=== PATIENT | female | born 1965 | race Caucasian/White ===

== ENCOUNTER 2019-03-22 13:48 | Outpatient (CLI) | payer OTHER ==
--- NOTE | 2019-03-22 15:36 | MMO ---
Bilateral MAMMO Bilat Diag DDI+DEYSI. CLINICAL HISTORY: Patient is 53 years old and is seen for diagnostic exam. The patient has no family history of breast cancer. The patient has no personal history of cancer. VIEWS: The views performed were: bilateral craniocaudal with tomosynthesis; bilateral mediolateral oblique with tomosynthesis; and bilateral mediolateral. FILMS COMPARED: The present examination has been compared to prior imaging studies performed at [facility] on 06/13/2005 and 03/22/2019. MAMMOGRAM FINDINGS: There are scattered fibroglandular densities. There are two irregular masses with spiculated margins seen in the upper-outer region of the right breast. The masses are approximately 1.2 cm apart. In the left breast, there are no suspicious masses, calcifications or areas of architectural distortion. IMPRESSION: MASSES IN THE RIGHT BREAST ARE SUSPICIOUS. AN ULTRASOUND-GUIDED BREAST BIOPSY IS RECOMMENDED. THE RESULTS OF THIS EXAM WERE SENT TO THE PATIENT. ACR BI-RADS Category 4 - Suspicious abnormality - biopsy should be considered MAMMOGRAPHY NOTE: 1. A negative mammogram report should not delay a biopsy if a dominant of clinically suspicious mass is present. 2. Approximately 10% to 15% of breast cancers are not detected by mammography. 3. Adenosis and dense breasts may obscure an underlying neoplasm.
--- NOTE | 2019-03-22 16:14 | ULT ---
RIGHT BREAST ULTRASOUND 03/22/19 COMPARISON: Mammogram 03/22/19. HISTORY: Swelling in the right axilla. Patient performs self-breast exam and not feel a mass in the right [address]. Patient has two abnormalities on mammography in the upper outer aspect of the right breast. TECHNIQUE: Multiplanar mckeon scale and color Doppler images were obtained in a right breast ultrasound. FINDINGS: At the 12 o'clock position of the right breast, approximately 6 cm from then nipple, there is a hypoe choic region with shadowing which is spiculated measuring 1.5 cm in size. This likely represents one of the mammographic abnormalities. At the 10 o'clock position of the right breast approximately 6 cm from the nipple, there is a second area of shadowing which is hypoechoic measuring 0.8 cm in greatest dimension. These masses are fairly near one another on ultrasound and mammography in the same quadra nt of the breast. Targeted ultrasound of the right axilla shows a hypoechoic region without internal flow measuring 3.3 cm in size. This does not have the appearance of an enlarged axillary lymph node and appears to repr esent a fluid collection. IMPRESSION: 1. Two masses in the right breast are suspicious for malignancy. These are fairly close to one a nother and a biopsy of the larger mass should be performed. BI-RADS 4: Suspicious Abnormality - Biops y Should Be Considered Usually requires biopsy. A ultrasound guided right breast mass biopsy is recom mended. This was discussed with the patient at the time of ultrasound. She was introduced to the [employer] e navigator to help her scheduling her future biopsy. 2. Nonspecific fluid collection in the right axilla. POS: DILIP
== END 2019-03-22 13:49 | disposition home or self-care (01) ==
LOC: BICMAMMO 13:48
PROVIDERS: ATTEND Family Medicine
DX: N63.0 Unspecified lump in unspecified breast (principal)
CPT/HCPCS: 77066; G0279

== ENCOUNTER 2019-04-04 10:37 | Day surgery (SDC) | payer SELFPAY ==
[2019-04-01 14:49] VITALS: BMI 28.3
[2019-04-04] MEDS ORDERED: Levofloxacin 500 mg/D5W 100 ml Premix Bag ONE (11:11)
[2019-04-04 11:44] LABS: #Basophils 0.1 thou/uL (0.0-0.2); #Eosinphils 0.1 thou/uL (0.0-0.7); #Lymphocytes 2.4 thou/uL (1.20-3.40); #Monocytes 0.4 thou/uL (0.11-0.59); #Neutrophils 3.9 thou/uL (1.40-6.50); %Basophils 1.2 % (0.0-1.0); %Eosinophils 2.1 % (0.0-10.0); %Lymphocytes 34.1 % (21.0-51.0); %Monocytes 5.8 % (0.0-10.0); %Neutrophils 56.8 % (42.0-75.0); Hemoglobin 14.1 g/dL (12.0-16.0); Mean Corpuscular HGB CONC 33.5 g/dL (32.0-36.0); Mean Corpuscular Hemoglobin 32.5 pg (27.0-31.0); Mean Platelet Volume 7.6 fL (7.4-10.4); Platelet Count 338 thou/uL (130-400); RBC Distribution Width 12.9 % (11.5-14.5); Red Blood Cell (RBC) Count 4.32 mill/uL (4.20-5.40); White Blood Cell (WBC) Count 6.9 thou/uL (4.8-10.8)
[2019-04-04 12:05] LABS: Anion Gap 12 mmol/L (10-20); BUN (Urea Nitrogen) 9 mg/dL (9.8-20.1); Calc. Creatinine Clearance 115 mL/min (70-130); Calcium 9.7 mg/dL (7.8-10.44); Carbon Dioxide 24 mmol/L (22-29); Chloride 107 mmol/L (98-107); Estimated GFR-MDRD Greater than 90; Glucose 90 mg/dL (70-105); Potassium 3.7 mmol/L (3.5-5.1); Sodium 139 mmol/L (136-145)
[2019-04-04] MEDS ORDERED: Bupivacaine/Epinephrine 0.25% 30 ML VIAL ONE (12:48)
[2019-04-04] MEDS ORDERED: Lidocaine 2% PF 5 ML VIAL ONE (12:48)
[2019-04-04] MEDS ORDERED: Midazolam HCl 2 mg/2 ml Vial ONE (13:01)
[2019-04-04] MEDS ORDERED: PROPOFOL 200 MG/20 ML VIAL ONE (13:19)
--- NOTE | 2019-04-04 14:43 | RAD ---
PORTABLE CHEST: Date: 04/04/19. PROVIDED CLINICAL HISTORY: MediPort placement. FINDINGS: Comparison with 09/10/06. Cardiac and mediastinal silhouette is within normal limits. Left subclavian implanted port is noted, the tip of which projects in the region of SVC. No focal consolidation, pleural fluid, or pneumothora x apparent. IMPRESSION: No evidence for an acute cardiopulmonary process. POS: OFF
--- NOTE | 2019-04-05 17:21 | PDOC.OP ---
Operative Note - Operative Note Operative Note: PROCEDURE: Left subclavian MediPort placement with fluoroscopy guidance DATE OF PROCEDURE: 04/04/2019 SURGEON: Mateusz Gomez M.D. PREOPERATIVE DIAGNOSIS: Node positive right breast cancer POSTOPERATIVE DIAGNOSIS: Node positive right breast cancer HISTORY: Patient has been diagnosed with node positive right cancer. Systemic staging is still pending. Chemotherapy has been recommended and a Mediport has been requested for this. OPERATIVE PROCEDURE IN DETAIL: After informed consent was obtained and appropriate preoperative antibiotics administered, the patient was taken to the operating room and placed in supine position and monitored anesthesia care was administered. The patient was then placed in Trendelenburg position and the left subclavian vein accessed easily by the standard approach with excellent flow of dark venous non-pulsatile blood. A wire threaded easily and was confirmed to be in the superior vena cava by fluoroscopy. Additional local anesthesia was infused to the skin and subcutaneous tissues lateral and inferior to the access site. The skin incision was extended from the wire laterally and a subcutaneous pocket developed inferiorly. A Mediport was obtained and confirmed to fit in the subcutaneous pocket. This was secured inferiorly to the pectoralis fascia with a Prolene suture, which was clamped, but not tied. The dilator and sheath were then placed over the wire and the dilator and wire removed leaving the sheath in place. The clamped MediPort tubing was tunneled through the sheath, which was then split and removed leaving the MediPort tubing in place. The tubing was adjusted until the tip was confirmed by fluoroscopy to be in the superior vena cava just above the atrium. The tubing was clamped at the skin level and cut and the tubing secured to the port, which was then placed in the subcutaneous pocket. The previously placed suture was secured and two additional sutures were placed to fix the port in place within the pocket. The port was aspirated with the Cardenas needle and had excellent flow of dark venous non-pulsatile blood and easily flushed without resistance. The subcutaneous tissues were closed with a running Monocryl suture, following which the skin was closed with a running subcuticular Monocryl suture. Dermabond dressings were placed. The course of the catheter was confirmed by fluoroscopy to be smooth with the tip appropriately located in the superior vena cava. The patient was taken back to the day stay unit in good condition. Estimated blood loss was minimal. There were no complications. There were no specimens.
== END 2019-04-04 15:35 | disposition home or self-care (01) ==
LOC: SDC 10:37
PROVIDERS: ATTEND Surgery
PROC: 05H633Z Insertion of Infusion Device into Left Subclavian Vein, Percutaneous Approach (ICD-10-PCS; principal; 2019-04-04)
DX: C50.911 Malignant neoplasm of unspecified site of right female breast (principal); I10 Essential (primary) hypertension; Z88.0 Allergy status to penicillin; Z88.5 Allergy status to narcotic agent
CPT/HCPCS: 36415; 71045; 80048; 85025; C1788; J1642; J1956; J2001; J2250; J2704

== ENCOUNTER 2019-04-08 09:02 | Outpatient (CLI) | payer OTHER ==
--- NOTE | 2019-04-08 09:55 | CT ---
CT Chest Abd Pelvis W Con History: [Breast cancer. Staging.] Comparison: Radiograph April 04, 2019 Findings: There is a calcified granuloma within the left lung base. No pericardial effusion. Portacat heter tip sits at the inferior SVC. Extensive right axillary adenopathy with the largest lymph node measuring 17 mm in short axis. There is edema in the rectal pectoral soft tissues appears also an abnormal retropectoral lymph node. Subclavicular adenopathy is also present with lymph node measuring up to 11 mm in short axis, coronal image 55. Small asymmetric right internal mammary lymph nodes are present. Multiple hypodensities in the right lobe of the thyroid. Skin thickening of the right breast the 2 separate masses with clip s adjacent to the masses although not within the. Subtle hypodensity is present within hepatic segment 4B measuring 4 mm, too small to characterize on this exam. Spleen is unremarkable as well as the pancreas. Of note, there is portions of the liver and upper abdomen which are nontender US examination due to and old be performed due to motion. No dilated loops of large or small bowel. No retroperitoneal adenopathy. Celiac trunk and superior me senteric artery are both patent. There is no suspicious osteolytic or osteoblastic lesions. No acute osseous abnormality. Impression: 1. 2 masses within the right breast with skin thickening and lymphatic congestive changes. Large righ t axillary, retropectoral, supraclavicular and small internal mammary adenopathy as described. 2. No evidence of metastatic disease within the lungs, abdomen, or pelvis. 3. Hypodensities in the right lobe of thyroid for which nonemergent ultrasound can be performed if cl inically warranted.
[2019-04-08] MEDS ORDERED: Iopamidol 370 76% 100 ML VIAL ONE (11:51)
--- NOTE | 2019-04-08 13:42 | NM ---
WHOLE BODY BONE SCAN: HISTORY: New diagnosis of right-sided breast cancer. Malignant neoplasm of the upper outer quadrant of the ri ght female breast. Right arm pain and swelling. RADIOPHARMACEUTICAL: Technetium 99m MDP 33 millicuries injected intravenously. FINDINGS: Focal increased uptake in the right lower lumbar spine, at the L5-S1 level, which is consistent with the degenerative change noted in the bone windows of the CT scan of the chest, abdomen, and pelvis fr om the same day. No other abnormal areas of tracer localization are seen to suggest osseous metastat ic disease. Tracer excretion through the kidneys is within normal limits. IMPRESSION: No scintigraphic evidence of osseous metastatic disease. POS: DILIP
== END 2019-04-08 09:03 | disposition home or self-care (01) ==
LOC: CT 09:02
PROVIDERS: ATTEND Internal Medicine Hematology & Oncology
DX: C50.411 Malignant neoplasm of upper-outer quadrant of right female breast (principal); N63.10 Unspecified lump in the right breast, unspecified quadrant; K76.89 Other specified diseases of liver; N64.59 Other signs and symptoms in breast
CPT/HCPCS: 71260; 74177; 78306; A9503; Q9967

== ENCOUNTER 2019-04-11 14:28 | Outpatient (CLI) | payer OTHER | END 2019-04-11 14:29 | disposition home or self-care (01) | LOC: ULT 14:28 | PROVIDERS: ATTEND Internal Medicine Hematology & Oncology | DX: Z51.11 Encounter for antineoplastic chemotherapy (principal); C50.411 Malignant neoplasm of upper-outer quadrant of right female breast; I08.1 Rheumatic disorders of both mitral and tricuspid valves | CPT/HCPCS: 93306 ==

== ENCOUNTER 2019-04-13 13:16 | Outpatient (CLI) | payer OTHER ==
--- NOTE | 2019-04-13 14:00 | MMO ---
Right Breast MAMMO Unilat Diag DDI RT+DEYSI. CLINICAL HISTORY: Patient is 53 years old and is seen for diagnostic exam. 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 VIEWS: The views performed were: . FILMS COMPARED: The present examination has been compared to prior imaging studies performed at [facility] on 06/13/2005 and 03/22/2019. MAMMOGRAM FINDINGS: There are scattered fibroglandular densities. There are two new biopsy clips seen in the right breast. Right skin thickening and partially visualized right axillary lymph node enlargement. Masses redemonstrated on the right. IMPRESSION: NEW BIOPSY CLIPS IN THE RIGHT BREAST ARE CONFIRMED UTILIZING POST PROCEDURE MAMMOGRAM. THE RESULTS OF THIS EXAM WERE SENT TO THE PATIENT. MAMMOGRAPHY NOTE: 1. A negative mammogram report should not delay a biopsy if a dominant of clinically suspicious mass is present. 2. Approximately 10% to 15% of breast cancers are not detected by mammography. 3. Adenosis and dense breasts may obscure an underlying neoplasm.
== END 2019-04-13 13:17 | disposition home or self-care (01) ==
LOC: BICMAMMO 13:16
PROVIDERS: ATTEND Surgery
DX: R92.8 Other abnormal and inconclusive findings on diagnostic imaging of breast (principal); Z98.890 Other specified postprocedural states; Z85.3 Personal history of malignant neoplasm of breast
CPT/HCPCS: G0279

== ENCOUNTER 2019-04-21 08:11 | Day surgery (SDC) | payer OTHER ==
[2019-04-21] MEDS ORDERED: Sodium Chloride 0.9% 30 ML ONE (10:11)
[2019-04-21] MEDS ORDERED: Palonosetron HCl 0.25 MG in Sodium Chloride 0.9% 50 ML IVPB SCH (10:45)
[2019-04-21] MEDS ORDERED: diphenhydrAMINE 50 MG in Sodium Chloride 0.9% 50 ML IVPB SCH (10:45)
[2019-04-21] MEDS ORDERED: Dexamethasone 10 MG in Sodium Chloride 0.9% 50 ML IVPB SCH (10:45)
[2019-04-21] MEDS ORDERED: DOCETAXEL IVPB SCH ×2 (11:15)
[2019-04-21] MEDS ORDERED: CARBOPLATIN IVPB SCH (11:15)
[2019-04-21] MEDS ORDERED: Pertuzumab 840 MG in Sodium Chloride 0.9% 250 ML 250 ML IVPB SCH (11:15)
[2019-04-21] MEDS ORDERED: SODIUM CHLORIDE 0.9% IVPB SCH ×4 (11:15)
[2019-04-21] MEDS ORDERED: TRASTUZUMAB IVPB SCH (11:15)
[2019-04-21 14:17] VITALS: BP 146/82; TEMP 98.6
== END 2019-04-21 17:45 | disposition home or self-care (01) ==
LOC: ONC/OP 08:11
PROVIDERS: ATTEND Internal Medicine Hematology & Oncology
DX: Z51.11 Encounter for antineoplastic chemotherapy (principal); C50.411 Malignant neoplasm of upper-outer quadrant of right female breast; Z88.0 Allergy status to penicillin; Z88.5 Allergy status to narcotic agent
CPT/HCPCS: 96375; 96413; 96417; J1100; J1200; J1642; J2469; J7050; J9045; J9171; J9306; J9355

== ENCOUNTER 2019-04-22 14:05 | Day surgery (SDC) | payer OTHER, SELFPAY ==
[2019-04-22 14:38] VITALS: BP 113/66; TEMP 97.9
== END 2019-04-22 14:38 | disposition home or self-care (01) ==
LOC: ONC/OP 14:05
PROVIDERS: ATTEND Internal Medicine Hematology & Oncology
DX: Z51.11 Encounter for antineoplastic chemotherapy (principal); C50.411 Malignant neoplasm of upper-outer quadrant of right female breast; Z88.0 Allergy status to penicillin; Z88.5 Allergy status to narcotic agent
CPT/HCPCS: 96372; J2505

== ENCOUNTER 2019-05-12 10:12 | Day surgery (SDC) | payer SELFPAY ==
[2019-05-12] MEDS ORDERED: DOCETAXEL IVPB SCH (10:30)
[2019-05-12] MEDS ORDERED: SODIUM CHLORIDE 0.9% IVPB SCH ×3 (10:30→10:45)
[2019-05-12] MEDS ORDERED: CARBOPLATIN IVPB SCH (10:30)
[2019-05-12] MEDS ORDERED: Palonosetron HCl 0.25 MG in Sodium Chloride 0.9% 50 ML IVPB SCH (10:30)
[2019-05-12] MEDS ORDERED: Pertuzumab 420 MG in Sodium Chloride 0.9% 250 ML 250 ML IVPB SCH (10:45)
[2019-05-12] MEDS ORDERED: TRASTUZUMAB IVPB SCH (10:45)
[2019-05-12 15:19] VITALS: BP 136/70; TEMP 98.6
== END 2019-05-12 15:21 | disposition home or self-care (01) ==
LOC: ONC/OP 10:12
PROVIDERS: ATTEND Internal Medicine Hematology & Oncology
DX: Z51.11 Encounter for antineoplastic chemotherapy (principal); C50.411 Malignant neoplasm of upper-outer quadrant of right female breast; Z88.5 Allergy status to narcotic agent; Z88.0 Allergy status to penicillin
CPT/HCPCS: 96375; 96413; 96417; J1100; J2469; J7050; J9045; J9171

== ENCOUNTER 2019-06-01 10:36 | Day surgery (SDC) | payer OTHER, SELFPAY ==
[~2019-06-01 10:36] MED LIST: CARBOPLATIN IVPB SCH; DOCETAXEL IVPB SCH; Palonosetron HCl 0.25 MG in Sodium Chloride 0.9% 50 ML IVPB SCH; Pertuzumab 420 MG in Sodium Chloride 0.9% 250 ML 250 ML IVPB SCH; SODIUM CHLORIDE 0.9% IVPB SCH; TRASTUZUMAB IVPB SCH
[2019-06-01] MEDS ORDERED: Sodium Chloride 0.9% 20 ML ONE (10:42)
== END 2019-06-01 15:34 | disposition home or self-care (01) ==
LOC: ONC/OP 10:36
PROVIDERS: ATTEND Internal Medicine Hematology & Oncology
DX: Z51.11 Encounter for antineoplastic chemotherapy (principal); C50.411 Malignant neoplasm of upper-outer quadrant of right female breast; Z88.0 Allergy status to penicillin; Z88.5 Allergy status to narcotic agent
CPT/HCPCS: 96375; 96413; 96417; J1100; J1642; J2469; J7050; J9045; J9171

== ENCOUNTER 2019-06-02 13:04 | Day surgery (SDC) | payer SELFPAY ==
[2019-06-02 13:36] VITALS: BP 143/80
== END 2019-06-02 13:36 | disposition home or self-care (01) ==
LOC: ONC/OP 13:04
PROVIDERS: ATTEND Internal Medicine Hematology & Oncology
DX: Z51.11 Encounter for antineoplastic chemotherapy (principal); C50.411 Malignant neoplasm of upper-outer quadrant of right female breast; Z88.0 Allergy status to penicillin; Z88.5 Allergy status to narcotic agent
CPT/HCPCS: 96372; J2505

== ENCOUNTER 2019-06-23 10:28 | Day surgery (SDC) | payer OTHER ==
[2019-06-23] MEDS ORDERED: Sodium Chloride 0.9% 20 ML ONE (10:48)
[2019-06-23 11:23] VITALS: BP 137/77; TEMP 98.2
[2019-06-23] MEDS ORDERED: SODIUM CHLORIDE 0.9% IVPB SCH (11:30)
[2019-06-23] MEDS ORDERED: FOSAPREPITANT DIMEGLUMINE IVPB SCH (11:30)
== END 2019-06-23 17:07 | disposition home or self-care (01) ==
LOC: ONC/OP 10:28
PROVIDERS: ATTEND Internal Medicine Hematology & Oncology
DX: Z51.11 Encounter for antineoplastic chemotherapy (principal); C50.411 Malignant neoplasm of upper-outer quadrant of right female breast; Z88.0 Allergy status to penicillin; Z88.5 Allergy status to narcotic agent
CPT/HCPCS: 96366; 96375; 96413; 96417; J1100; J1453; J1642; J2469; J3490; J7050; J9045; J9171

== ENCOUNTER 2019-07-14 10:35 | Day surgery (SDC) | payer OTHER ==
[2019-07-14] MEDS ORDERED: Sodium Chloride 0.9% 20 ML ONE (10:53)
[2019-07-14 11:24] VITALS: BP 133/75; TEMP 98.2
== END 2019-07-14 16:23 | disposition home or self-care (01) ==
LOC: ONC/OP 10:35
PROVIDERS: ATTEND Internal Medicine Hematology & Oncology
DX: Z51.11 Encounter for antineoplastic chemotherapy (principal); C50.411 Malignant neoplasm of upper-outer quadrant of right female breast; Z88.0 Allergy status to penicillin; Z88.5 Allergy status to narcotic agent
CPT/HCPCS: 96366; 96375; 96413; 96417; J1100; J1453; J1642; J2469; J3490; J7050; J9045; J9171

== ENCOUNTER 2019-07-15 09:05 | Day surgery (SDC) | payer OTHER ==
[2019-07-15 10:19] VITALS: BP 138/77; TEMP 98.4
== END 2019-07-15 10:19 | disposition home or self-care (01) ==
LOC: ONC/OP 09:05
PROVIDERS: ATTEND Internal Medicine Hematology & Oncology
DX: Z51.11 Encounter for antineoplastic chemotherapy (principal); C50.411 Malignant neoplasm of upper-outer quadrant of right female breast; Z88.0 Allergy status to penicillin; Z88.5 Allergy status to narcotic agent
CPT/HCPCS: 96372; J2505

== ENCOUNTER 2019-08-05 09:50 | Day surgery (SDC) | payer OTHER ==
[~2019-08-05 09:50] MED LIST changes: +Sodium Chloride 0.9% 20 ML ONE
[2019-08-05 14:33] VITALS: BP 146/83; TEMP 98.5
== END 2019-08-05 14:51 | disposition home or self-care (01) ==
LOC: ONC/OP 09:50
PROVIDERS: ATTEND Internal Medicine Hematology & Oncology
DX: Z51.11 Encounter for antineoplastic chemotherapy (principal); C50.411 Malignant neoplasm of upper-outer quadrant of right female breast; Z88.0 Allergy status to penicillin; Z88.5 Allergy status to narcotic agent
CPT/HCPCS: 96367; 96375; 96413; 96417; J1100; J1453; J1642; J2469; J3490; J7050; J9045; J9171

== ENCOUNTER 2019-08-10 12:50 | Outpatient (CLI) | payer OTHER | END 2019-08-10 12:51 | disposition home or self-care (01) | LOC: ULT 12:50 | PROVIDERS: ATTEND Internal Medicine Hematology & Oncology | DX: Z51.11 Encounter for antineoplastic chemotherapy (principal); C50.411 Malignant neoplasm of upper-outer quadrant of right female breast; Z79.899 Other long term (current) drug therapy; I08.3 Combined rheumatic disorders of mitral, aortic and tricuspid valves | CPT/HCPCS: 93306 ==

== ENCOUNTER 2019-09-14 07:04 | Day surgery (SDC) | payer OTHER ==
[2019-09-13 10:34] VITALS: BMI 28.5
[2019-09-14] MEDS ORDERED: Isosulfan Blue 50 MG/5 ML VIAL ONE (09:32)
[2019-09-14] MEDS ORDERED: Lidocaine 2% PF 5 ML VIAL ONE (09:32)
[2019-09-14] MEDS ORDERED: Bupivacaine/Epinephrine 0.25% 30 ML VIAL ONE (09:32)
[2019-09-14] MEDS ORDERED: Fentanyl 100 MCG/2 ML VIAL ONE ×2 (11:07→16:19)
[2019-09-14] MEDS ORDERED: Famotidine/PF 20 mg/2ml Vial ONE (11:12)
[2019-09-14] MEDS ORDERED: Ondansetron PF 4 MG/2 ML Vial ONE (11:13)
[2019-09-14] MEDS ORDERED: Scopolamine 1.5 mg/72 hour Patch ONE (11:13)
[2019-09-14] MEDS ORDERED: Levofloxacin 500 mg/D5W 100 ml Premix Bag ONE (11:14)
[2019-09-14 11:52] LABS: #Basophils 0.1 thou/uL (0.0-0.2); #Eosinphils 0.3 thou/uL (0.0-0.7); #Lymphocytes 2.3 thou/uL (1.20-3.40); #Monocytes 0.4 thou/uL (0.11-0.59); #Neutrophils 2.9 thou/uL (1.40-6.50); %Lymphocytes 39.2 % (21.0-51.0); %Monocytes 6.5 % (0.0-10.0); %Neutrophils 48.2 % (42.0-75.0); Hemoglobin 13.1 g/dL (12.0-16.0); Mean Corpuscular HGB CONC 34.4 g/dL (32.0-36.0); Mean Corpuscular Hemoglobin 33.3 pg (27.0-31.0); Mean Corpuscular Volume 96.8 fL (78.0-98.0); Mean Platelet Volume 7.3 fL (7.4-10.4); Platelet Count 280 thou/uL (130-400); RBC Distribution Width 10.8 % (11.5-14.5); Red Blood Cell (RBC) Count 3.93 mill/uL (4.20-5.40); White Blood Cell (WBC) Count 5.9 thou/uL (4.8-10.8)
[2019-09-14 12:23] LABS: Anion Gap 12 mmol/L (10-20); BUN (Urea Nitrogen) 10 mg/dL (9.8-20.1); Calc. Creatinine Clearance 118 mL/min (70-130); Calcium 9.4 mg/dL (7.8-10.44); Carbon Dioxide 23 mmol/L (22-29); Chloride 109 mmol/L (98-107); Estimated GFR-MDRD Greater than 90; Glucose 93 mg/dL (70-105); Potassium 3.4 mmol/L (3.5-5.1); Sodium 141 mmol/L (136-145)
[2019-09-14] MEDS ORDERED: Fentanyl 250 MCG/5 ML VIAL ONE (13:01)
--- NOTE | 2019-09-14 15:55 | MMO ---
Radiograph surgical specimen: DATE: 09/14/2019 Time: 1513 hours HISTORY: 54-year-old female with 2 breast cancers in the right breast. Status post needle localization and sin gical excision x2. FINDINGS: This is the second surgical specimen. It shows the [place] localization wire, the small spiculated neop lastic lesion, and the postbiopsy clip. IMPRESSION: 1. Successful right breast needle localization. 2. Successful right breast surgical excision.
--- NOTE | 2019-09-14 15:57 | MMO ---
Radiograph surgical specimen: DATE: 09/14/2019 Time: 1454 hours. HISTORY: 54-year-old female with 2 right breast cancer is diagnosed with ultrasound-guided right breast biopsy performed by surgeon. Surgical excision after needle localization. FINDINGS: This is the first of 2 surgical specimens. It contains the [place] localization wire, the spiculated ne oplastic small tumor mass, and the biopsy clip. IMPRESSION: 1. Successful right breast needle localization. 2. Successful surgical excision of right breast.
--- NOTE | 2019-09-14 16:02 | MMO ---
Mammographically guided needle localization right breast x2: DATE: 09/14/2019 HISTORY: 54-year-old female with 2 right breast cancer is both diagnosed by ultrasound-guided biopsy performed by surgeon. Patient is here for surgical excision, requiring image guidance. TECHNIQUE: Signed informed consent obtained. Through fenestrated paddle, right breast was compressed in the true lateral view. Lateral approach. Lateral skin prepared in usual sterile fashion. 25-gauge needle used to apply lidocaine superficially and deeply. 7 cm Mcalester needle advanced, targeting the upper les ion. Next, the lower lesion was targeted, and after 25-gauge needle application of lidocaine, a second 7 cm Mcalester needle was advanced from lateral approach. Next, the breast was compressed in the C C view, and both needle tips were retracted to the appropriate locations. The wires were deployed through the needle tips. A final repeat true lateral view was obtained. Patient tolerated the procedu re well. No complications. FINDINGS: Final images demonstrate needle tips very close to each neoplastic tumor lesion, with Mcalester wire tips pointing towards the clips. Subsequent specimen radiographs demonstrate successful excisional biopsy of both neoplastic lesions and both surgical clips. IMPRESSION: 1.) Successful mammographically guided right needle localization x2. 2.) Successful excisional surgical biopsy of the right breast cancers x2.
--- NOTE | 2019-09-14 16:15 | NM ---
Nuclear medicine lymphoscintigraphy right breast: DATE: 09/14/2019 HISTORY: 54-year-old female with 2 right-sided biopsy-proven breast cancers. Evaluate sentinel lymph node. TECHNIQUE: Signed informed consent obtained. Buffered lidocaine in syringe with 32-gauge needle. 0.4 mCi of technetium 99m-filtered sulfur colloid divided in 4 separate tuberculin syringes each with 32-gauge needle. Alcohol pad swab of 4 quadrant periareolar distribution. Injection of buffered lidocaine into each quadrant. Alcohol pad swab of same 4 quadrant periareolar distribution. Injection of radiopharmaceutical into each quadrant. Patient tolerated procedure well. No complications. FINDINGS: There is intense activity in a periareolar distribution in 4 quadrants, but there is no axillary sent inel lymph node visualized either immediately or at one hour. At one hour, there is faint uptake in 2 separate right internal mammary lymph nodes. IMPRESSION: 1. No evidence of activity in any right axillary lymph nodes. This is explained by the fact that the patient had neoadjuvant chemotherapy, after which the large, necrotic right axillary lymph node (demonstrated on prior ultrasound, CT, and PET scan) has disappeared on ultrasound (according to the surgeon Dr. Gomez). 2. Uptake in 2 right internal mammary lymph nodes.
--- NOTE | 2019-09-15 12:42 | PDOC.OP ---
Operative Note - Operative Note Operative Note: PROCEDURE: Right axillary dissection and right breast needle localized breast lumpectomy 2 SURGEON: Mateusz Gomez M.D. DATE: 09/14/2019 PREOPERATIVE DIAGNOSIS: Right breast cancer POSTOPERATIVE DIAGNOSIS: Right breast cancer HISTORY: Patient with 2 large right breast masses and a very abnormal right axillary lymph node and lymphedema of the right arm at the time of diagnosis, all biopsy-proven malignant. She underwent neoadjuvant chemotherapy with remarkable improvement in the axilla, with no palpable or ultrasonographically visible lymph node following chemotherapy. There was also improvement in the right breast masses which were not easily visible on ultrasound following therapy, so needle localization was requested preoperatively. Both masses are in the right upper outer quadrant, within a few centimeters of each other. Lymphoscintigraphy was also performed, but no axillary activity was seen. Internal mammary activity was seen on the lymphoscintigraphy, but no activity in the axilla. Was discussed with the patient that if a sentinel lymph node could be identified using Lymphazurin, but sentinel lymph node biopsy would be undertaken, but otherwise no axillary dissection would be necessary. PROCEDURE IN DETAIL: After informed consent was obtained the patient was taken to the operating room and placed in the supine position. General anesthesia was administered and the breast was prepped with alcohol and lymphazurin injected subdermally behind the nipple. The breast was massaged for 5 minutes, and then the patient was positioned, prepped and draped. Local anesthesia was infused to the lower edge of the hairbearing skin of the axilla. The skin was incised and dissection carried into the true axilla which was carefully examined with the neoprobe. No areas of increased activity were encountered however, which was consistent with the patient's finding of no axillary activity on lymphoscintigraphy. No blue lymphatics were noted either. The decision was made to proceed with axillary dissection as had been previously discussed with the patient preoperatively. Dissection was carried down toward the palpable axillary pulse and the axillary vein was identified and dissected free anteriorly. This was traced to the axillary wall and the axillary contents swept off of the axillary wall and the long thoracic nerve identified and dissected free of the axillary contents. This was confirmed to cause contraction of the anterior serratus muscles with gentle stimulation. The thoracodorsal vessel and nerve were then identified and traced to their insertion in the latissimus dorsi. Again, contraction of the latissimus dorsi was confirmed with gentle stimulation of the thoracodorsal nerve. All of the lymph node bearing tissue between these 3 structures was then swept inferiorly, dividing intercostal brachial nerves and small vessels as they were encountered. The axillary contents were then passed from the field. There were no abnormal palpable lymph nodes within the axillary contents. The lymph node bearing tissue posterior to the pectoralis was included in the specimen, and no additional abnormal lymph nodes were felt in this area. The wound was irrigated and hemostasis verified. Additional local anesthesia was infused for postoperative pain control and the MARISELA drain drawn out inferiorly and secured to the skin. The subcutaneous tissues were reapproximated with 3-0 Monocryl suture and the skin closed with 4-0 Monocryl suture. Attention was then turned to the lumpectomy. The patient had 2 needle localization wires placed in the right upper outer quadrant of the breast. These were in proximity of each other, but it was felt that a very long periareolar incision be necessary to excise them both in the same incision, which could complicate healing from a mastectomy if this was necessary at a later date, and it was also felt that this could put the patient at risk for displacement of one of the needles during dissection of the other mass. Therefore the decision was made to proceed with 2 separate incisions and 2 separate lumpectomies. The breast was examined with a sterile ultrasound machine and the suspected location of the masses was marked on the skin to further guide dissection. One of the masses could be seen although was much smaller than before chemotherapy, but the other could not be definitively identified, although there was a vague hypoechoic area in the location of the inferior needle. The superior needle was 7 cm long and the needle was located posterior to the clip but anterior to the mass on preoperative imaging. Local anesthesia was infused the skin and subcutaneous tissues and a transverse incision made. Dissection was carried out around the needle taking generous margins both anteriorly and posteriorly. The specimen was removed and marked for orientation with a long lateral, short superior, and loop superficial suture. It was sent for specimen mammogram which showed presence of the mass and clip within the specimen. The wound was irrigated and hemostasis obtained using Bovie electrocautery. Attention was then turned to the inferior needle localized mass. The inferior needle was 5 cm long and located posterior to both the mass and the clip. Local anesthesia was infused and a transverse skin incision made. Dissection was carried out around the needle taking generous margins anteriorly. As dissection was carried out superiorly, the previous lumpectomy cavity was entered. The superior margin of the inferior mass is thus contiguous with the inferior margin of the superior mass. The mass was excised and oriented for pathology with a long lateral, short superior, and loop superficial suture. This was sent for specimen mammogram which confirmed presence of the mass and clip within the specimen. Additional local anesthesia was infused circumferentially for postoperative pain control. The subcutaneous tissues were reapproximated with a running 3-0 Monocryl suture and additional local anesthesia infused into the biopsy cavity. The skin was then closed with a running 4-0 subcuticular Monocryl suture. Dermabond dressings were placed to both incisions, as well as the axillary incision, and once this was dry, fluffs compression dressings were placed and secured to the skin with tape. MARISELA site was dressed with gauze and Tegaderm. The patient was extubated and taken to the recovery room in good condition. Estimated blood loss was minimal. There were no complications. Specimens are right axillary contents and right breast needle localized lumpectomies 2
== END 2019-09-14 18:35 | disposition home or self-care (01) ==
LOC: SDC 07:04
PROVIDERS: ATTEND Surgery
PROC: 0HBT0ZZ Excision of Right Breast, Open Approach (ICD-10-PCS; principal; 2019-09-14)
PROC: 0HTT0ZZ Resection of Right Breast, Open Approach (ICD-10-PCS; principal; 2019-09-14)
PROC: 07B50ZZ Excision of Right Axillary Lymphatic, Open Approach (ICD-10-PCS; principal; 2019-09-14)
DX: C50.411 Malignant neoplasm of upper-outer quadrant of right female breast (principal); I10 Essential (primary) hypertension; Z17.0 Estrogen receptor positive status [ER+]; Z88.0 Allergy status to penicillin; Z88.5 Allergy status to narcotic agent
CPT/HCPCS: 19281; 19282; 76098; 78195; 80048; 85025; 88307; A9541; J0131; J1642; J1956; J2001; J2405; J3010; Q9968; S0028

== ENCOUNTER 2019-10-05 08:40 | Day surgery (SDC) | payer OTHER, SELFPAY ==
[2019-10-04 08:34] VITALS: BMI 28.7
[2019-10-05] MEDS ORDERED: Levofloxacin 500 mg/D5W 100 ml Premix Bag ONE (09:31)
[2019-10-05] MEDS ORDERED: Scopolamine 1.5 mg/72 hour Patch ONE (09:49)
[2019-10-05] MEDS ORDERED: Dexamethasone 20 MG/5 ML VIAL ONE (09:52)
[2019-10-05] MEDS ORDERED: Ondansetron PF 4 MG/2 ML Vial ONE (09:52)
[2019-10-05] MEDS ORDERED: PHENYLEPHRINE-NS 100 MCG/ML 10 ML SYRINGE ONE (09:52)
[2019-10-05] MEDS ORDERED: ePHEDrine/0.9% NaCl/PF SYRINGE 50 mg/10 ml ONE (09:52)
[2019-10-05] MEDS ORDERED: PROPOFOL 200 MG/20 ML VIAL ONE (09:52)
[2019-10-05] MEDS ORDERED: Lidocaine 1% PF 5 ML VIAL ONE (09:52)
[2019-10-05] MEDS ORDERED: Ketorolac Tromethamine 30 MG/ML VIAL ONE (09:52)
[2019-10-05] MEDS ORDERED: Fentanyl 100 MCG/2 ML VIAL ONE (10:21)
[2019-10-05] MEDS ORDERED: Bupivacaine HCl 0.25%/Epi 0.0005/PF 10 ML VIAL FS ONE (10:29)
[2019-10-05] MEDS ORDERED: Lidocaine 2% PF 5 ML VIAL ONE (10:55)
[2019-10-05] MEDS ORDERED: Sodium Chloride 0.9% 10 ML ONE (13:20)
--- NOTE | 2019-10-06 19:49 | PDOC.OP ---
Operative Note - Operative Note Operative Note: PROCEDURE: Reexcision of superior margin of superior lumpectomy specimen of right breast SURGEON: Mateusz Gomez M.D. DATE: PREOPERATIVE DIAGNOSIS: Right breast cancer status post lumpectomy 2 with focally positive superior margin of superior mass POSTOPERATIVE DIAGNOSIS: Right breast cancer status post lumpectomy 2 with focally positive superior margin of superior mass HISTORY: Patient with right breast cancer status post excision of 2 separate tumor masses and axillary dissection. The superior specimen was focally positive at the superior margin so reexcision was recommended. PROCEDURE IN DETAIL: After informed consent was obtained the patient was taken to the operating on she was placed in supine position and general anesthesia was administered. She was prepped and draped in standard sterile fashion and local anesthesia infused the skin and subcutaneous tissues at the superior biopsy incision. The skin was reopened and the biopsy cavity entered. The entire superior margin of the biopsy cavity was excised and marked for orientation with a long lateral, short superior, and loop superficial suture. The wound was then irrigated and hemostasis obtained using Bovie electrocautery. Additional local anesthesia was infused for postoperative pain control. The subcutaneous tissues were reapproximated with 3-0 Monocryl suture and additional local anesthesia infused into the biopsy cavity. The skin was closed with a running force Monocryl suture and Dermabond dressings were placed. Once this was dry, a compression dressing was placed. The patient was extubated and taken to recovery in good condition. Estimated blood loss minimal. There were no complications. Specimen is extended superior margin of superior breast mass of the right breast.
== END 2019-10-05 13:42 | disposition home or self-care (01) ==
LOC: SDC 08:40
PROVIDERS: ATTEND Surgery
PROC: 0HBT0ZZ Excision of Right Breast, Open Approach (ICD-10-PCS; principal; 2019-10-05)
DX: C50.411 Malignant neoplasm of upper-outer quadrant of right female breast (principal); I10 Essential (primary) hypertension; Z88.0 Allergy status to penicillin; Z88.5 Allergy status to narcotic agent
CPT/HCPCS: 88307; J0131; J1100; J1642; J1885; J1956; J2001; J2405; J2704; J3010

== ENCOUNTER 2019-11-14 11:38 | Day surgery (SDC) | payer OTHER ==
[~2019-11-14 11:38] MED LIST changes: +ADO TRASTUZUMAB EMTANSINE IVPB SCH; -CARBOPLATIN IVPB SCH; -DOCETAXEL IVPB SCH; -Palonosetron HCl 0.25 MG in Sodium Chloride 0.9% 50 ML IVPB SCH; -Pertuzumab 420 MG in Sodium Chloride 0.9% 250 ML 250 ML IVPB SCH; -Sodium Chloride 0.9% 20 ML ONE; -TRASTUZUMAB IVPB SCH
[2019-11-14] MEDS ORDERED: Sodium Chloride 0.9% 20 ML ONE (11:47)
[2019-11-14 13:16] VITALS: BP 135/72; TEMP 97.9
== END 2019-11-14 14:30 | disposition home or self-care (01) ==
LOC: ONC/OP 11:38
PROVIDERS: ATTEND Internal Medicine Hematology & Oncology
DX: Z51.12 Encounter for antineoplastic immunotherapy (principal); C50.411 Malignant neoplasm of upper-outer quadrant of right female breast; Z17.0 Estrogen receptor positive status [ER+]; Z88.0 Allergy status to penicillin; Z88.5 Allergy status to narcotic agent
CPT/HCPCS: 96413; J1642

== ENCOUNTER 2019-12-05 12:23 | Day surgery (SDC) | payer OTHER ==
[2019-12-05] MEDS ORDERED: Sodium Chloride 0.9% 20 ML ONE (12:31)
[2019-12-05 13:15] VITALS: BP 122/67; TEMP 98.5
== END 2019-12-05 15:22 | disposition home or self-care (01) ==
LOC: ONC/OP 12:23
PROVIDERS: ATTEND Internal Medicine Hematology & Oncology
DX: Z51.12 Encounter for antineoplastic immunotherapy (principal); C50.411 Malignant neoplasm of upper-outer quadrant of right female breast; Z88.0 Allergy status to penicillin; Z88.5 Allergy status to narcotic agent
CPT/HCPCS: 96367; 96413; J1453; J1642; J3490

== ENCOUNTER 2019-12-26 11:10 | Day surgery (SDC) | payer OTHER ==
[2019-12-26] MEDS ORDERED: Sodium Chloride 0.9% 20 ML ONE (11:51)
[2019-12-26 13:47] VITALS: BP 112/67; TEMP 98.5
== END 2019-12-26 13:47 | disposition home or self-care (01) ==
LOC: ONC/OP 11:10
PROVIDERS: ATTEND Internal Medicine Hematology & Oncology
DX: Z51.12 Encounter for antineoplastic immunotherapy (principal); C50.411 Malignant neoplasm of upper-outer quadrant of right female breast; Z88.0 Allergy status to penicillin; Z88.5 Allergy status to narcotic agent
CPT/HCPCS: 96375; 96413; J1453; J1642; J3490

== ENCOUNTER 2020-01-16 10:22 | Day surgery (SDC) | payer OTHER ==
[2020-01-16 10:52] VITALS: BP 112/69; TEMP 98.1
== END 2020-01-16 12:55 | disposition home or self-care (01) ==
LOC: ONC/OP 10:22
PROVIDERS: ATTEND Internal Medicine Hematology & Oncology
DX: Z51.12 Encounter for antineoplastic immunotherapy (principal); C50.411 Malignant neoplasm of upper-outer quadrant of right female breast; Z88.0 Allergy status to penicillin; Z88.5 Allergy status to narcotic agent
CPT/HCPCS: 96367; 96413; J1453; J1642; J3490

== ENCOUNTER 2020-02-06 10:21 | Day surgery (SDC) | payer SELFPAY ==
[2020-02-06] MEDS ORDERED: Sodium Chloride 0.9% 20 ML ONE (12:30)
== END 2020-02-06 14:22 | disposition home or self-care (01) ==
LOC: ONC/OP 10:21
PROVIDERS: ATTEND Internal Medicine Hematology & Oncology
DX: Z51.12 Encounter for antineoplastic immunotherapy (principal); C50.411 Malignant neoplasm of upper-outer quadrant of right female breast; Z88.0 Allergy status to penicillin; Z88.5 Allergy status to narcotic agent
CPT/HCPCS: 96375; 96413; J1453; J1642; J3490

== ENCOUNTER 2020-02-13 12:03 | Outpatient (CLI) | payer OTHER | END 2020-02-13 12:04 | disposition home or self-care (01) | LOC: ULT 12:03 | PROVIDERS: ATTEND Internal Medicine Hematology & Oncology | DX: Z51.11 Encounter for antineoplastic chemotherapy (principal); C50.411 Malignant neoplasm of upper-outer quadrant of right female breast; I07.1 Rheumatic tricuspid insufficiency; Z79.899 Other long term (current) drug therapy | CPT/HCPCS: 93306 ==

== ENCOUNTER 2020-02-27 11:01 | Day surgery (SDC) | payer OTHER ==
[2020-02-27] MEDS ORDERED: Sodium Chloride 0.9% 20 ML ONE (11:08)
[2020-02-27 11:58] VITALS: BP 139/87; TEMP 98.4
== END 2020-02-27 13:25 | disposition home or self-care (01) ==
LOC: ONC/OP 11:01
PROVIDERS: ATTEND Internal Medicine Hematology & Oncology
DX: Z51.12 Encounter for antineoplastic immunotherapy (principal); C50.411 Malignant neoplasm of upper-outer quadrant of right female breast; Z88.0 Allergy status to penicillin; Z88.5 Allergy status to narcotic agent
CPT/HCPCS: 96367; 96413; J1453; J1642; J3490; J7050; J9354

== ENCOUNTER 2020-03-19 11:30 | Day surgery (SDC) | payer SELFPAY ==
[2020-03-19] MEDS ORDERED: Sodium Chloride 0.9% 20 ML ONE (11:33)
[2020-03-19 11:57] VITALS: BP 149/93; TEMP 98.6
== END 2020-03-19 13:50 | disposition home or self-care (01) ==
LOC: ONC/OP 11:30
PROVIDERS: ATTEND Internal Medicine Hematology & Oncology
DX: Z51.11 Encounter for antineoplastic chemotherapy (principal); C50.411 Malignant neoplasm of upper-outer quadrant of right female breast; Z88.0 Allergy status to penicillin; Z88.5 Allergy status to narcotic agent
CPT/HCPCS: 96375; 96413; J1453; J1642; J3490

== ENCOUNTER → 2020-04-09 | Day surgery (SDC) | payer OTHER, SELFPAY ==
[~2020-04-09] MED LIST changes: +Sodium Chloride 0.9% 20 ML ONE
[2020-04-09 14:00] VITALS: BP 135/82; TEMP 98.5
== END ==
LOC: ONC/OP 11:11
PROVIDERS: ATTEND Internal Medicine Hematology & Oncology
DX: Z51.11 Encounter for antineoplastic chemotherapy (principal); C50.411 Malignant neoplasm of upper-outer quadrant of right female breast; Z17.0 Estrogen receptor positive status [ER+]; Z88.0 Allergy status to penicillin; Z88.5 Allergy status to narcotic agent
CPT/HCPCS: 96367; 96413; J1453; J1642; J3490

== ENCOUNTER 2020-04-16 06:34 | Inpatient (IN) | payer OTHER, SELFPAY ==
[2020-04-16] MEDS ORDERED: Metoclopramide HCl 10 MG/2 ML VIAL ONE (07:28)
[2020-04-16] MEDS ORDERED: Ketorolac Tromethamine 30 MG/ML VIAL ONE (07:28)
[2020-04-16] MEDS ORDERED: Fentanyl 100 MCG/2 ML VIAL ONE (07:28)
[2020-04-16] MEDS ORDERED: Ondansetron PF 4 MG/2 ML Vial ONE (07:28)
[2020-04-16] MEDS ORDERED: Dexamethasone 10 MG/ML VIAL ONE (07:28)
[2020-04-16 07:39] LABS: #Eosinphils 0.1 thou/uL (0.0-0.7); #Lymphocytes 1.1 thou/uL (1.20-3.40); #Monocytes 0.5 thou/uL (0.11-0.59); #Neutrophils 6.5 thou/uL (1.40-6.50); %Basophils 0.2 % (0.0-1.0); %Eosinophils 1.3 % (0.0-10.0); %Lymphocytes 13.8 % (21.0-51.0); %Monocytes 6.1 % (0.0-10.0); %Neutrophils 78.5 % (42.0-75.0); Hemoglobin 15.1 g/dL (12.0-16.0); Mean Corpuscular HGB CONC 32.2 g/dL (32.0-36.0); Mean Corpuscular Hemoglobin 29.9 pg (27.0-31.0); Mean Platelet Volume 8.1 fL (7.4-10.4); Platelet Count 178 thou/uL (130-400); RBC Distribution Width 12.2 % (11.5-14.5); Red Blood Cell (RBC) Count 5.04 mill/uL (4.20-5.40); White Blood Cell (WBC) Count 8.2 thou/uL (4.8-10.8)
[2020-04-16 08:04] LABS: ALT (SGPT) 56 U/L (8-55); AST (SGOT) 63 U/L (5-34); Albumin 4.4 g/dL (3.5-5.0); Alkaline Phosphatase 77 U/L (40-110); Anion Gap 15 mmol/L (10-20); BUN (Urea Nitrogen) 11 mg/dL (9.8-20.1); Bilirubin, Total 0.3 mg/dL (0.2-1.2); CK (CPK) 37 U/L (29-168); Calc. Creatinine Clearance 0 mL/min (70-130); Calcium 9.9 mg/dL (7.8-10.44); Carbon Dioxide 25 mmol/L (22-29); Chloride 104 mmol/L (98-107); Estimated GFR-MDRD 79; Globulin 3.3 g/dL (2.4-3.5); Glucose 106 mg/dL (70-105); Potassium 3.3 mmol/L (3.5-5.1); Protein, Total 7.7 g/dL (6.0-8.3); Sodium 141 mmol/L (136-145)
[2020-04-16] MEDS ORDERED: Proparacaine 0.5% Opth 15 ML BOT ONE (08:09)
--- NOTE | 2020-04-16 08:28 | CT ---
CT BRAIN NONCONTRAST: DATE: 04/16/2020 8:10 AM HISTORY: 54-year-old female with breast cancer presents with headache, nausea, vomiting, and blurred vision. Dr. Duong discussed the findings by telephone with Dr. Millan of the ER at 8:18 AM 04/16/2020 COMPARISON: none FINDINGS: There is a patchy hypodensity in the posterior aspect of the right cerebellar hemisphere probably rep resenting vasogenic edema. This measures several centimeters. Anterior to that in the upper right cerebellar hemisphere, there is a tiny subcentimeter such focus. There is effacement of the inferior portion of the fourth ventricle, questionable for a small mass in the cerebellar vermis. There is no obstructive hydrocephalus yet. There is crowding of the foramen magnum which may represent Andrez 1 malformation. There is a tiny subcentimeter focal moderate hyperdensity in the right parietal deep white matter just superior to the atrium of the right lateral ventricle. No supratentorial mass effec t. No midline shift. No destructive osseous lesion. No gross opacification of visualized portions of paranasal sinuses or tympanomastoid cavities. No acute intra-axial or extra-axial hemorrhage. A 1 x 1.3 cm low-attenuation extra-axial lesion broadly abutting the posterior aspect of the upper portion of the interhemispheric fissure, mildly displacing the left paramedian upper posterior fronta l gyri. IMPRESSION: 1. Findings suspicious for brain metastasis: Suspected 2 in the right cerebellar hemisphere, suggeste d by what is probably vasogenic edema. 2. Questionable small moderately hyperdense mass at the cerebellar vermis which effaces the inferior portion of the fourth ventricle. 3. Questionable small moderately hyperdense mass in the right parietal deep white matter. This is que stionable for lesion with petechial hemorrhage. 4. 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 5. Left upper parafalcine supratentorial small extra-axial lesion of uncertain etiology. Perhaps arac hnoid cyst. 6. Recommend MRI of the brain with and without contrast.
[2020-04-16 09:09] LABS: PTT 29.6 SEC (22.9-36.1); Prothrombin Time 13.1 sec (12.0-14.7)
[2020-04-16] MEDS ORDERED: Iopamidol-370 76% 500 ML 1 ML ONE (10:03)
[2020-04-16] MEDS ORDERED: Magnevist 469MG/ML 20 ML VIAL ONE (10:06)
[2020-04-16] MEDS ORDERED: Ondansetron PF 4 MG/2 ML Vial IVP PRN (10:50)
[2020-04-16] MEDS ORDERED: Ondansetron ODT 4 MG TAB PO PRN (10:50)
[2020-04-16] MEDS ORDERED: Fentanyl 100 MCG/2 ML VIAL SLOW IVP PRN (10:51)
[2020-04-16] MEDS ORDERED: D5 1/2 NS w/20 mEq KCL 1,000 ML IV SCH ×2 (11:00→13:12)
[2020-04-16 11:48] VITALS: BMI 26.1
[2020-04-16] MEDS ORDERED: Acetaminophen 500 MG TAB PO PRN (12:58)
[2020-04-16] MEDS: Dexamethasone 4 mg/ml Vial SLOW IVP SCH ×2 (13:22→17:54)
--- NOTE | 2020-04-16 13:59 | HP ---
HISTORY OF PRESENT ILLNESS: Ms. Trinh is a 54-year-old female with a medical history of breast cancer, status post lumpectomy x2 in September of 2019 ( currently on chemotherapy), dry eyes and blurry vision since starting chemotherapy, who presents with right-sided headache and blurry vision. The patient endorses having blurry vision since starting chemotherapy. However, the vision blurriness is bilateral and resolved a few days after using otic medications. This past Thursday, started having an additional episode of blurry vision; however, this time blurriness was greater on the right than on the left and was associated with a right-sided headache that was pressure-like and constant. The patient took Tylenol for the headache, which alleviated the pain; however, blurriness did not resolve , so she came to the ED. On encounter, lying comfortably in bed and endorses improved blurry vision on the right and no headache. Denies head trauma, temporal pain or tenderness, facial asymmetry, eye swelling or erythema, nasal congestion, cough, or focal weakness. ED COURSE: In the ED, the patient underwent a CT scan, which showed findings suspicious for brain metastasis in the right cerebellar hemisphere and probable vasogenic edema. She was treated with steroids, Neurosurgery and Oncology were contacted, and the patient was admitted for further management. REVIEW OF SYSTEMS: Complete review of system was carried out and was negative with the exception of that mentioned in the HPI. MEDICAL HISTORY: 1. Breast cancer diagnosed in September of 2019; status post lumpectomy x2, currently on chemotherapy. 2. Hypertension. SURGICAL HISTORY: Hysterectomy, tonsillectomy, . FAMILY HISTORY: Father due to heart attack in his early 40s. Mother , had COPD. Brother also had a heart attack at the age of 4343 years old. SOCIAL HISTORY: No smoking. No alcohol abuse. No recreational drug abuse. Lives with family. MEDICATIONS: Reconciled in EMR. ALLERGIES: PENICILLIN AND CODEINE (hives) PHYSICAL EXAMINATION: VITAL SIGNS: Blood pressure 139/82, pulse 91, respirations 18, oxygen saturation 100% on room air, and temperature 98.4. GENERAL APPEARANCE: In no apparent distress. CARDIAC: Regular rate and rhythm. No gallops or murmurs. Left chemo port. LUNGS: Clear to auscultation bilaterally. No wheezes, rales, or rhonchi. ABDOMEN: Nondistended and nontender. Normal bowel sounds. EXTREMITIES: Strength 5/5 throughout. No edema. NEUROLOGIC: Peripheral visual mendoza are intact. Extraocular muscles are intact. Cranial nerves 2 through 12 grossly intact. No pronator drift. No nystagmus. PSYCHIATRIC: Proper mood and affect. Alert and oriented x3. IMAGING AND LABS: Reviewed. Brain CT, findings suggestive of metastasis with surrounding vasogenic edema, measuring several centimeters in the right cerebellar hemisphere. ASSESSMENT AND PLAN: Ms. Trinh is a 54-year-old female with a medical history of metastatic brain cancer, status post lumpectomy x2, now presenting with visual disturbances and new onset headache due to brain metastasis. Breast cancer, status post lumpectomy x2, brain metastasis: The patient is hemodynamically stable and currently asymptomatic with the exception of mild visual blurriness in the right eye. Administered steroids in the ED. Neurosurgery and Oncology were contacted by the ED physician, pending evaluation. Plan; 1. Tylenol p.r.n. headache. 2. Dexamethasone 4 mg IVP q.6 hours. 3. Restarted anastrozole. 4. Brain MRI with and without contrast. Hypertension: The patient is taking no hypertension medications at home based on medication reconciliation. Currently, blood pressure well controlled. Disposition prophylaxis: The patient is full code. Surrogate decision maker is her . Deep venous thrombosis prophylaxis, SCDs. GI prophylaxis, the patient is on Pepcid. Estimated length of stay, 2 midnights. Job ID: [id number] [facility]
--- NOTE | 2020-04-16 14:45 | MRI ---
MRI BRAIN WITH AND WITHOUT CONTRAST: DATE: 04/16/2020 HISTORY: 54-year-old female with history of metastatic breast cancer presents with headache, visual disturbanc es and abnormal CT. COMPARISON: None TECHNIQUE: Multiplanar, multisequence MRI of the brain performed pre- and post-IV injection of gadolinium based contrast agent. FINDINGS: Multiple enhancing tumors in the posterior fossa. Moderately large 4 x 2.5 x 2 cm intra-axial tumor mass with thick irregular nodular rim enhancement, and nonenhancing necrotic center. Small 0.8 cm satellite nodules slightly inferior to its lateral edge. 2 x 0.7 x 0.8 such lesion at superior aspect of right cerebellar hemisphere. Tiny 0.5 cm enhancing nodule at anterior inferior aspect of left cerebellar hemisphere. Minimal or enhancing supratentorial enhancing intra-axial tumor masses. In particular, one tumor mass broadly abutting the left side of the posterior interhemispheric falx m easuring approximately 2.8 x 2.7 x 2 cm with left sided nodular thick rim enhancement has a necrotic right portion, which gave the appearance of an arachnoid cyst on the noncontrast CT. This is a metastatic mass. All of the other supratentorial tumor masses are smaller than this. These include right orbital gyrus, many others along the interhemispheric fissure bilaterally, right occipi los lobe, right parietal lobe, and right posterior temporal lobe. Tiny faint one in the left parietal deep white matter near posterior aspect of left lateral ventricle. There is indeed 6 mm inferior protrusion of cerebellar tonsils inferior to foramen magnum. The efface ment of the inferior aspect of the fourth ventricle appears to be due to the chronic mass effect from the category 1 malformation. There is a slightly smaller possibility that this could be due to t he moderately large right cerebellar tumor causing mass effect. The upper portion of the fourth ventricle and the lateral and third ventricles are normal in size and configuration. No evidence of h emorrhage of any of the metastatic masses. No restricted diffusion. No subfalcine or vertical transtentorial herniation. No extra-axial fluid collection. IMPRESSION: 1) numerous intra-axial brain metastatic lesions in the cerebrum and cerebellum. 2) effacement of the inferior aspect of fourth ventricle could be due to Chiari I malformation, or al ternatively due to the mass effect from the largest metastatic mass which is in the right cerebellar hemisphere. 3) no supratentorial mass effect despite the somewhat large number of cerebral metastases.
--- NOTE | 2020-04-16 17:36 | CT ---
Exam: Chest CT with contrast Abdomen CT with contrast Pelvic CT with contrast HISTORY: Breast cancer and lymphedema. Evaluate for metastases. Correlation: None COMPARISON: 04/08/2019 FINDINGS: Chest CT: Mediastinum: No mass, lymphadenopathy or hematoma. Aorta: Normal caliber. No periaortic fat stranding. Heart: Normal heart size. No significant pericardial fluid Trachea and central bronchi: Patent Pleural spaces: No pleural effusion. Right lung: Interval development of patchy groundglass opacities predominantly in the right upper lob e. There is a ill-defined groundglass opacity with slightly irregular margins measuring 2.2 x 1.8 cm, which is developed since the previous exam. On the coronal images, this opacity is a somewhat mor e masslike appearance and appears to have a solid component. The solid component measures 1.2 x 1.2 cm. Left lung:Stable calcified granuloma and scarring in the left lower lobe. No suspicious masses, conso lidation Pneumothorax: None Chest wall: Postsurgical changes in the right axilla and right breast. There is right breast skin thi ckening with irregular hypodensity measuring 3.2 x 1.6 cm. Hypodensity has a attenuation coefficient of 14-15 Hounsfield units suggesting a possible post operative seroma. Better interrogati on on with MRI if clinically warranted. Abdomen CT: Gallbladder: Unremarkable Portal vein: Patent Liver: No enhancing masses. Stable subcentimeter hypodensities in the hepatic parenchyma.. Spleen: Appropriate enhancement Pancreas: Appropriate enhancement Adrenal glands: Appropriate enhancement Lymphadenopathy: No gastrohepatic, retrocrural or periportal lymphadenopathy Kidneys: Symmetric enhancement. No obstructive uropathy Mesentery: No mass, lymphadenopathy, free air or free fluid Alimentary canal: Limited evaluation by the lack of oral contrast. No small bowel obstruction. Ileoce javan junction has a normal appearance. Normal caliber appendix. Decompressed colon with the bowel wall thickening, likely due to inadequate distention. Scattered diverticula. No diverticulitis. Pelvis CT: Uterus is surgically absent. No pelvic mass, lymphadenopathy, free air or free fluid. Normal mucosa w ith regards to the urinary bladder Osseous structures:No lytic or blastic lesions. IMPRESSION: 1. Presumed postoperative changes in the right breast. Breast MRI if clinically warranted. 2. Interval development of a groundglass opacity with a more central masslike solid opacification. Fi ndings may represent possible focus of metastatic disease versus infiltrate versus posttreatment change. Consider pet imaging.
[2020-04-16] MEDS: Senokot S 8.6-50 MG TAB PO SCH (20:15)
[2020-04-16] MEDS: Famotidine/PF 20 mg/2ml Vial SLOW IVP SCH (20:15)
--- NOTE | 2020-04-16 21:01 | CON ---
DATE OF CONSULTATION: HISTORY OF PRESENT ILLNESS: The patient is a 54-year-old female with a history of breast cancer, currently being treated by Oncology with chemotherapy and radiation regimen. The patient reports that she was diagnosed in the fall of 2018. She had positive lymph nodes at that time, but no definitive metastatic spread. She has been treated with chemotherapy and radiation treatments as well as lumpectomy of the right breast. She reports that she was doing well, but over the weekend, she developed some increased right-sided headaches as well as some blurred vision of the right eye. She has had some blurred vision over the past few months that appeared to be medication related, but this was increased, unilateral, and associated with new headaches. She presented to the ER today, had a noncontrast CT, which showed multiple areas throughout her CT concerning for multiple brain metastases. The most prominent area appears to be in the right cerebellum with some surrounding vasogenic edema. There is no evidence of hydrocephalus or significant mass effect or midline shift. She was given a dose of Decadron 10 mg IV in the emergency department. PAST MEDICAL HISTORY: Notable for breast cancer, currently being treated with chemotherapy and radiation regimen by Dr. Aleman. PAST SURGICAL HISTORY: Right-sided lumpectomy, hysterectomy. SOCIAL HISTORY: The patient does not smoke, drink, or use any drugs. REVIEW OF SYSTEMS: Per HPI. ALLERGIES: SHE IS ALLERGIC TO CODEINE AND PENICILLIN. CURRENT MEDICATION REGIMEN: 1. Anastrazole 1 mg daily. 2. P.o. Tylenol. 3. Kadcyla, treatments differ every 3 weeks. PHYSICAL EXAMINATION: VITAL SIGNS: Stable. HEAD: Normocephalic and atraumatic. EYES: Pupils are equal and reactive to light. Extraocular movements intact. ENT: Oral mucosa is pink, intact, and moist. She has normal voice. NECK: Nontender. Free active range of motion. No meningismus or nuchal rigidity. RESPIRATORY: Symmetric chest expansion. No evidence of dyspnea. CARDIOVASCULAR: Regular rhythm. MUSCULOSKELETAL: Free active range of motion all extremities. No focal motor weakness. No reflex asymmetry. Symmetric pulses. NEURO: A and O x4. No focal neurologic deficits are appreciated. Normal speech. ASSESSMENT AND PLAN: This is a 54-year-old female, currently being treated for breast cancer. She has had positive lymph nodes, but no definitive metastatic spread per the patient. She has new right-sided headache and blurred vision in the right eye. Her noncontrast head CT is concerning for metastatic brain lesions. We will plan to evaluate this further with MRI of the brain with and without contrast. We will also continue her Decadron 4 mg q.6 h. and add an H2 bartolome for GI protection. We will follow these results closely. Discussed this plan with Dr. Gatica, who is in agreement. Job ID: [id number]
[2020-04-17] MEDS: Dexamethasone 4 mg/ml Vial SLOW IVP SCH ×3 (00:11→11:46)
--- NOTE | 2020-04-17 00:36 | CON ---
DATE OF CONSULTATION: REASON FOR CONSULT: Breast cancer. HISTORY OF PRESENT ILLNESS: Ms. Trinh is a pleasant 54-year-old female who was diagnosed with stage IIIB invasive ductal carcinoma of the right breast. She was ER positive, HER2 positive. She was diagnosed in March 2019. She underwent neoadjuvant TCHP, which she tolerated well with only mild nausea and diarrhea. She had an excellent response with no residual disease in her lymph nodes. There were two small foci of residual disease in her superior mass. Her superior margin was positive and she had re-excision, which showed no disease. She underwent adjuvant radiation and recently received her eighth dose of Kadcyla. She had been struggling with blurred vision, possibly from the Kadcyla. She has seen a corneal specialist for her dry eyes and blurry vision. This has been ongoing since December. She has had no headaches until this weekend when she had a severe headache which started on Thursday. She called early this morning and was referred to the emergency room. A brain CT showed findings suspicious for brain metastasis. She then underwent an MRI earlier today. There were multiple enhancing lesions in the posterior fossa. There was a moderately large 4 x 2.5 x 2 cm intra-axial tumor mass with irregular nodular rim enhancement and a nonenhancing necrotic center. There was a small 0.8 cm satellite nodule inferior to the lateral edge of the larger mass. There was a 2 x 0.7 x 0.8 lesion at the superior aspect of the right cerebellar hemisphere, tiny 0.5 enhancing nodule at the anterior inferior aspect of the left cerebellar hemisphere. There were supratentorial enhancing intra-axial tumor masses, one measuring 2.8 x 2.7 x 2 cm. She was started on steroids. Neurosurgery was consulted. Her headache has resolved. PAST MEDICAL HISTORY: 1. Stage IIIB invasive ductal carcinoma of the right breast. 2. Hypertension. PAST SURGICAL HISTORY: 1. Lumpectomy. 2. Hysterectomy. 3. . ALLERGIES: TO CODEINE AND PENICILLIN. HOME MEDICATIONS: 1. Kadcyla. 2. Arimidex. FAMILY HISTORY: No history of breast cancer. SOCIAL HISTORY: , has one child. No alcohol, tobacco, or illicit drug use. REVIEW OF SYSTEMS: A 10-point review of systems is negative except for noted in HPI. PHYSICAL EXAMINATION: VITAL SIGNS: Temperature is 98.4, pulse is 91, respiratory rate 18, BP is 139/82. She is 100% on room air. GENERAL: This is a well-developed, well-nourished female, in no acute distress. HEENT: Normocephalic, atraumatic. Pupils are equal and reactive to light. NECK: Supple. CV: Regular rate and rhythm. LUNGS: Clear. ABDOMEN: Soft and nontender. Bowel sounds are positive. EXTREMITIES: No clubbing or cyanosis. SKIN: No rash. BREASTS: Right breast has a biopsy scar. PERTINENT LABS AND X-RAYS: Current WBCs are 8.2, hemoglobin 15.1, hematocrit 46.8, platelet count 178,000, 78% neutrophils, 14% lymphocytes. PT 13.1, INR is 1, PTT is 29.6. Sodium 141, potassium 3.3, chloride 104, CO2 is 25, BUN is 11, creatinine 0.76, calcium 9.9, bilirubin 0.3, AST 63, ALT is 56, alkaline phosphatase is 77, total protein is 7.7, albumin 4.4, globulin 3.3. ASSESSMENT: 1. Metastatic brain lesions. 2. Invasive ductal carcinoma of the right breast, currently on Kadcyla and Arimidex. DISCUSSION: Case has been discussed with Dr. Aleman. The patient is on steroids and IV fluids with improvement with resolution of her headache. Need further staging, imaging and so we will order a CT of the chest, abdomen, pelvis, and a nuclear med bone scan. The patient was informed of the brain MRI results. Given the multiple lesions, it is unlikely that Neurosurgery will have any surgical options. We will await their opinion. We will consult Dr. Dye to see the patient and discuss whole-brain radiation. Thank you for the consult. We will follow her hospital course. Job ID: [id number]
[2020-04-17 06:00] LABS: #Lymphocytes 0.8 thou/uL (1.20-3.40); #Monocytes 0.5 thou/uL (0.11-0.59); #Neutrophils 6.9 thou/uL (1.40-6.50); %Basophils 0.3 % (0.0-1.0); %Lymphocytes 9.9 % (21.0-51.0); %Monocytes 6.3 % (0.0-10.0); %Neutrophils 83.5 % (42.0-75.0); Hemoglobin 14.1 g/dL (12.0-16.0); Mean Corpuscular HGB CONC 33.2 g/dL (32.0-36.0); Mean Corpuscular Hemoglobin 30.9 pg (27.0-31.0); Mean Corpuscular Volume 93.1 fL (78.0-98.0); Mean Platelet Volume 8.5 fL (7.4-10.4); Platelet Count 215 thou/uL (130-400); RBC Distribution Width 12.1 % (11.5-14.5); Red Blood Cell (RBC) Count 4.57 mill/uL (4.20-5.40); White Blood Cell (WBC) Count 8.3 thou/uL (4.8-10.8)
[2020-04-17 06:22] LABS: Anion Gap 13 mmol/L (10-20); BUN (Urea Nitrogen) 8 mg/dL (9.8-20.1); Calc. Creatinine Clearance 96 mL/min (70-130); Calcium 9.6 mg/dL (7.8-10.44); Carbon Dioxide 25 mmol/L (22-29); Chloride 106 mmol/L (98-107); Estimated GFR-MDRD 87; Glucose 130 mg/dL (70-105); Potassium 3.5 mmol/L (3.5-5.1); Sodium 140 mmol/L (136-145)
[2020-04-17 06:43] LABS: Follicle Stimulating Hormone 67.19 mIU/mL (See Ranges); Luteinizing Hormone 34.66 mIU/mL (See Ranges)
--- NOTE | 2020-04-17 08:35 | PRG ---
DATE OF SERVICE: 04/17/2020 SUBJECTIVE: The patient was seen and examined. I agree with Naya Recinos's evaluation on 04/16/2020. The patient is a 54-year-old woman with known breast cancer having been treated with surgery and adjuvant therapy last fall. She has been complaining of some blurred vision and recently has had an increase in headaches as well. This prompted her evaluation. MRI scan has been performed that reveals multiple intracranial metastases. The largest of this is in the right cerebellum, it is quite heterogeneous and is not causing substantial mass effect. There are many other infratentorial and supratentorial metastases, most of which are quite small. CT of the chest, abdomen, and pelvis have been performed showing some lung abnormalities. IMPRESSION AND PLAN: The patient has widespread metastatic disease of the brain. I would recommend again surgery in this situation and we would consider palliative whole-brain radiation depending on the staging of her systemic disease. I will defer to Dr. Dye and Dr. Aleman regarding decision making for the overall systemic disease and for the whole-brain radiation. We will continue with the current Decadron dose until plan is made and then, the taper can be arranged. If there is progression of symptoms referral to the large posterior fossa tumor, this could be debulked for symptomatic relief, but at this time, does not seem to be necessary. Discussed with the patient. Job ID: [id number]
[2020-04-17] MEDS: Senokot S 8.6-50 MG TAB PO SCH (08:45)
[2020-04-17] MEDS: Famotidine/PF 20 mg/2ml Vial SLOW IVP SCH (08:46)
[2020-04-17] MEDS ORDERED: Anastrozole 1 MG TAB PO SCH (09:00)
[2020-04-17] MEDS ORDERED: Multivit, Therapeutic 1 TAB PO SCH (09:00)
--- NOTE | 2020-04-17 10:16 | PDOC.MOPN ---
Interval History: Pt feeling much better today. She has mild residual headache, 98% better. No other complaints today. - Vital Signs Vital Signs: Vital Signs (12 hours) Temp Pulse Resp BP Pulse Ox 04/17/20 07:56 98.4 F 104 H 18 156/84 H 100 04/17/20 04:08 98.2 F 95 16 122/75 98 04/17/20 03:58 98 04/17/20 00:07 98.0 F 83 16 125/71 98 Weight Weight 147 lb 6.4 oz - Physical Exam General: Alert, Oriented x3, Cooperative HEENT: Atraumatic, EOMI Lungs: Normal air movement Cardiovascular: Regular rate Neurological: Cranial nerves 3-12 NL - Labs Result Diagrams: 04/17/20 05:30 04/17/20 05:30 Lab results: Laboratory Results - last 24 hr 04/17/20 05:30: FSH 67.19, Luteinizing Hormone 34.66 04/17/20 05:30: Estradiol (E2) Level Less than 10 04/17/20 05:30: WBC 8.3, RBC 4.57, Hgb 14.1, Hct 42.6, MCV 93.1, MCH 30.9, MCHC 33.2, RDW 12.1, Plt Count 215, MPV 8.5, Neutrophils % 83.5 H, Lymphocytes % 9.9 L, Monocytes % 6.3, Eosinophils % 0.0, Basophils % 0.3, Neutrophils # 6.9 H, Lymphocytes # 0.8 L, Monocytes # 0.5, Eosinophils # 0.0, Basophils # 0.0 04/17/20 05:30: Sodium 140, Potassium 3.5, Chloride 106, Carbon Dioxide 25, Anion Gap 13, BUN 8 L, Creatinine 0.70, Estimated GFR (MDRD) 87, Glucose 130 H, Calcium 9.6 A/P - Problem (1) Breast cancer Status: Acute (2) Brain metastases Code(s): C79.31 - SECONDARY MALIGNANT NEOPLASM OF BRAIN Status: Acute - Plan Plan: Consult Dr. Dye for WBRT Cont steroids, taper tbd DC home today for outpatient radiation, f/u with me in clinic
[2020-04-17 12:04] VITALS: BP 150/83; TEMP 98.5
--- NOTE | 2020-04-17 12:51 | NM ---
NUCLEAR MEDICINE BONE SCAN WHOLE BODY: (Skeletal scintigraphy) DATE: 04/17/2020 HISTORY: 54-year-old female with breast cancer TECHNIQUE: IV injection of technetium 99m-MDP: 32.6 mCi 3 hour delayed whole body skeletal scintigraphy in anterior and posterior views. FINDINGS: There are no foci of asymmetrically increased uptake that are particularly suspicious for bone metast ases. IMPRESSION: No compelling evidence of skeletal metastasis.
--- NOTE | 2020-04-17 20:06 | CON ---
DATE OF CONSULTATION: 04/17/2020 REASON FOR CONSULTATION: Ms. Trinh is a 54-year-old female, well known to me for her previous diagnosis of breast cancer that now has been found to have brain metastasis. HISTORY OF PRESENT ILLNESS: Ms. Trinh was diagnosed with initial clinical stage IIIB, T1c N3b M0 grade 2 invasive ductal carcinoma of the upper outer quadrant of the right breast that was estrogen receptor positive, progesterone receptor negative, and HER2 receptor positive. She was treated with neoadjuvant chemotherapy and down-staged to a pathological stage IA, ypT1a N0 M0 lesion. She then received adjuvant radiation therapy to the breast and regional lymph nodes, which was completed on 12/16/2019. Most recently, she has been on Kadcyla and Arimidex. This has caused some issues over the last several months with periodic dry eyes. This usually occurs several days after treatment. Last week, she got treatment with Kadcyla and on and Thursday began experiencing trouble with dry eyes and blurred vision. However, on Thursday, she began experiencing headaches. These were initially relieved with Tylenol, but by Thursday, she was having more pronounced headaches with nausea and vomiting. She subsequently came to the emergency room, where a CT scan of the head was performed, which showed some vasogenic edema and possible mass effect and she was admitted for workup and evaluation. She underwent an MRI of the brain, which showed numerous brain metastasis. The largest measured 4 cm in the right cerebellum. There was surrounding vasogenic edema. She has been started on dexamethasone and her symptoms have resolved. She is no longer having headaches or nausea or vomiting. She did undergo a CT scan of the chest, abdomen, and pelvis, which showed a possible lung nodule in the right lung, but otherwise showed no evidence of additional metastatic disease. Bone scan is currently pending. I was asked to see the patient to discuss her treatment options. She has been seen by Dr. Oliva in Neurosurgery, who did not feel that surgical intervention was indicated at this time. Presently, she feels well. Her dry eye symptoms are improving. Her vision is improving. She has no focal weakness or numbness. She denies any shortness of breath. She voices no other complaints. PAST MEDICAL HISTORY: 1. Breast cancer as mentioned above. 2. Hypertension. 3. Status post hysterectomy with no oophorectomy performed. 4. Status post tonsillectomy. 5. Status post . MEDICATIONS: 1. Anastrozole. 2. Multivitamin. 3. Tylenol p.r.n. 4. Pepcid. 5. Dexamethasone. ALLERGIES: CODEINE AND PENICILLIN, WHICH BOTH CAUSED HIVES. SOCIAL HISTORY: She has no cigarette use. She drinks 1-2 alcoholic beverages per week. She lives with her here in town. She works as a housewife. FAMILY HISTORY: Her mother at age 82 from COPD and heart failure. Her father at age 43 from heart disease. She had a brother who at age 48 from heart disease. There is no other family history of breast or ovarian cancer. REVIEW OF SYSTEMS: A 12-system review of systems is otherwise negative. PHYSICAL EXAMINATION: VITAL SIGNS: Height 5 feet 3 inches, weight 147 pounds. Blood pressure is 150/83, pulse is 83, respirations are 18, temperature is 98.5, O2 saturation is 100% on room air. CONSTITUTIONAL: She is alert and oriented and in no apparent distress. She is well developed and well nourished. Karnofsky performance status is 90%. EYES: Pupils equal, round, and reactive to light. Extraocular movements are intact. ENT: Oral cavity and oropharynx normal without lesion or erythema. Palate elevates symmetrically. Gingiva is intact. NECK: Supple without preauricular, submandibular, cervical, or supraclavicular adenopathy. No thyromegaly. Larynx midline. LUNGS: Breathing nonlabored. Clear to auscultation and percussion. CARDIOVASCULAR: Heart, regular rate and rhythm without murmur. No lower extremity edema. BACK: No tenderness on fist percussion of her spine. LYMPHATIC: No axillary adenopathy. ABDOMEN: Soft, nontender, nondistended without mass or hepatosplenomegaly. Liver percusses to normal size. SKIN: Without rash or purpura. NEUROLOGIC: Cranial nerves 2 through 12 are grossly intact. Motor strength is 5/5 in both upper and lower extremities in all muscle groups tested. Reflexes are normal and symmetrical. Gait was not tested. DIAGNOSTIC DATA: MRI of the brain and CT scan of the chest, abdomen, and pelvis were all personally reviewed. MRI of the brain shows numerous contrast-enhancing lesions consistent with metastasis. Some of the lesions look almost like the extra-axial along the lining of the ventricle. The largest lesion is in the right cerebellum and measured 4 cm. There was surrounding vasogenic edema. On CT scan, I think the nodular area described in the lung is likely post radiation changes. I have a low suspicion for this being metastatic disease. There is no other evidence of metastatic disease. There were changes in the right breast consistent with her lumpectomy and radiation. LABORATORY DATA: CBC revealed a white blood cell count of 8300 with a hemoglobin of 14.1, hematocrit of 42.6, and platelet count of 215,000. Chemistry group showed fairly normal electrolytes. Her AST and ALT were mildly elevated. Creatinine was normal. ASSESSMENT: Ms. Trinh is a 54-year-old female, who unfortunately has been diagnosed with extensive brain metastasis only 4 months since completing her radiation therapy and while she was still on Kadcyla and Arimidex. She has no other definite evidence of metastatic disease. PLAN: I had a lengthy discussion with Ms. Trinh and her regarding her diagnosis, prognosis, prognostic factors, and treatment options. She has been seen by Dr. Oliva, who did not feel that neurosurgical intervention was recommended. I think her only treatment option is whole-brain radiation therapy. She has too much volume of disease for radiosurgery. I made this recommendation to her. The logistics of radiation as well as the benefits and risk of treatment were discussed. The simulation and daily treatment procedure were discussed. Side effects would include, but not be limited to skin reaction, fatigue, lower blood counts, hair loss, which may be permanent, headache, nausea, vomiting, and long-term cognitive effects from the radiation. We had a lengthy discussion regarding the possible cognitive effects from radiation. I have recommended that she take Namenda while on the radiation therapy and she is agreeable to that. Time was taken to answer all her questions regarding her treatment options. She does wish to proceed with radiation therapy. She understands the uncertain prognosis of this situation and that we will have to monitor her brain in the future with serial MRI scans. She is going to obtain a bone scan here shortly. That should complete her staging. From my perspective, she could be discharged this afternoon as radiation can be done as an outpatient. I will communicate this with the hospitalist. She should be sent home on dexamethasone 4 mg t.i.d. and Pepcid. We will make arrangements for her to undergo simulation. Thank you for asking me to see this pleasant lady. Job ID: [id number]
--- NOTE | 2020-04-18 11:59 | DIS ---
DATE OF ADMISSION: 04/16/2020 DATE OF DISCHARGE: 04/17/2020 HOSPITAL COURSE: Ms. Trinh is a 54-year-old female with a medical history of recently diagnosed breast cancer status post lumpectomy x2 and adjuvant chemotherapy, who presented with right-sided headache and blurry vision. She was diagnosed with brain metastasis. Radiation Oncology and Neurosurgery were consulted. The patient was started on steroid due to vasogenic edema surrounding the tumor. After multidisciplinary discussion it was decided that the only treatment option was whole-brain radiation therapy. She was discharged with followup appointment with Radiation Oncology on Decadron tapering dose, which Radiation Oncology will apply she is followed as an outpatient. At the time of discharge, the patient's headache resolved and visual blurriness significantly improved. She was discharged home in hemodynamically stable with no additional complaints. Job ID: [id number] MTDD
[2020-04-18 12:09] LABS: Cancer Antigen (CA 27.29) 54.2 U/mL (0.0-38.6)
== END 2020-04-17 15:20 | disposition home or self-care (01) | DRG 54 ==
LOC: ERS 06:34 → ONC 10:25
PROVIDERS: ADMIT Internal Medicine; ATTEND Internal Medicine
DX: C79.31 Secondary malignant neoplasm of brain (principal); G93.6 Cerebral edema; I10 Essential (primary) hypertension; C50.911 Malignant neoplasm of unspecified site of right female breast; Z90.710 Acquired absence of both cervix and uterus; Z88.5 Allergy status to narcotic agent; Z88.0 Allergy status to penicillin; Z79.899 Other long term (current) drug therapy; Z79.811 Long term (current) use of aromatase inhibitors
CPT/HCPCS: 36415; 70450; 70553; 71260; 74177; 77014; 77290; 77307; 77334; 78306; 80048; 80053; 82550; 82670; 83001; 83002; 85025; 85610; 85730; 86300; 96361; 96374; 96375; A9503; A9579; J1100; J1642; J1885; J2405; J2765; J3010; J3480; Q9967; S0028

== ENCOUNTER 2020-05-02 11:22 | Day surgery (SDC) | payer SELFPAY ==
[~2020-05-02 11:22] MED LIST changes: -Sodium Chloride 0.9% 20 ML ONE
[2020-05-02 12:12] VITALS: BP 136/78; TEMP 98.5
[2020-05-02] MEDS ORDERED: Sodium Chloride 0.9% 20 ML ONE (12:18)
== END 2020-05-02 14:21 | disposition home or self-care (01) ==
LOC: ONC/OP 11:22
PROVIDERS: ATTEND Internal Medicine Hematology & Oncology
DX: Z51.12 Encounter for antineoplastic immunotherapy (principal); C50.411 Malignant neoplasm of upper-outer quadrant of right female breast; Z88.0 Allergy status to penicillin; Z88.5 Allergy status to narcotic agent
CPT/HCPCS: 96367; 96413; J1453; J1642; J3490

== ENCOUNTER 2020-05-28 11:22 | Day surgery (SDC) | payer SELFPAY ==
[2020-05-28] MEDS ORDERED: Sodium Chloride 0.9% 20 ML ONE (11:38)
[2020-05-28 11:47] VITALS: BP 160/84; TEMP 98.6
== END 2020-05-28 13:44 | disposition home or self-care (01) ==
LOC: ONC/OP 11:22
PROVIDERS: ATTEND Internal Medicine Hematology & Oncology
DX: Z51.12 Encounter for antineoplastic immunotherapy (principal); C50.411 Malignant neoplasm of upper-outer quadrant of right female breast; Z88.0 Allergy status to penicillin; Z88.5 Allergy status to narcotic agent
CPT/HCPCS: 96367; 96413; J1453; J1642; J3490

== ENCOUNTER 2020-05-31 12:38 | Outpatient (CLI) | payer OTHER | END 2020-05-31 12:39 | disposition home or self-care (01) | LOC: ULT 12:38 | PROVIDERS: ATTEND Internal Medicine Hematology & Oncology | DX: Z51.11 Encounter for antineoplastic chemotherapy (principal); C50.411 Malignant neoplasm of upper-outer quadrant of right female breast; I08.8 Other rheumatic multiple valve diseases | CPT/HCPCS: 93306 ==

== ENCOUNTER 2020-06-25 10:12 | Outpatient (CLI) | payer OTHER, SELFPAY ==
--- NOTE | 2020-06-25 10:58 | MMO ---
Bilateral MAMMO Bilat Diag DDI+DEYSI. CLINICAL HISTORY: Patient is 55 years old and is seen for diagnostic exam. The patient has no family history of breast cancer. The patient has a history of Core biopsy procedure revealed invasive moderately differentiated ductal right breast carcinoma in Mar, 2019. The patient has a history of right Lumpectomy in 2019 - malignant. VIEWS: The views performed were: bilateral craniocaudal with tomosynthesis; bilateral mediolateral oblique with tomosynthesis; and bilateral mediolateral with tomosynthesis. FILMS COMPARED: The present examination has been compared to prior imaging studies performed at [facility] on 06/13/2005, 03/22/2019 and 04/13/2019. This study has been interpreted with the assistance of computer-aided detection. MAMMOGRAM FINDINGS: There are scattered fibroglandular densities. There are right sided post-operative changes. Benign calcifications are noted bilaterally. There are no suspicious masses, suspicious calcifications, or new areas of architectural distortion. IMPRESSION: THERE IS NO MAMMOGRAPHIC EVIDENCE OF MALIGNANCY. A ROUTINE FOLLOW-UP MAMMOGRAM IN 1 YEAR IS RECOMMENDED. THE RESULTS OF THIS EXAM WERE SENT TO THE PATIENT. ACR BI-RADS Category 2 - Benign finding MAMMOGRAPHY NOTE: 1. A negative mammogram report should not delay a biopsy if a dominant of clinically suspicious mass is present. 2. Approximately 10% to 15% of breast cancers are not detected by mammography. 3. Adenosis and dense breasts may obscure an underlying neoplasm. Reported by: HALEIGH ALVARADO MD Electonically Signed: [id number]
== END 2020-06-25 10:13 | disposition home or self-care (01) ==
LOC: BICMAMMO 10:12
PROVIDERS: ATTEND Surgery
DX: C50.919 Malignant neoplasm of unspecified site of unspecified female breast (principal); Z98.890 Other specified postprocedural states
CPT/HCPCS: 77066; G0279

== ENCOUNTER 2020-06-25 13:49 | Day surgery (SDC) | payer SELFPAY ==
[2020-06-25 14:14] VITALS: BP 127/87; TEMP 98.6
[2020-06-25] MEDS ORDERED: SODIUM CHLORIDE 0.9% IVPB SCH (14:15)
[2020-06-25] MEDS ORDERED: ADO TRASTUZUMAB EMTANSINE IVPB SCH (14:15)
[2020-06-25] MEDS ORDERED: Sodium Chloride 0.9% 20 ML ONE (14:54)
== END 2020-06-25 16:06 | disposition home or self-care (01) ==
LOC: ONC/OP 13:49
PROVIDERS: ATTEND Internal Medicine Hematology & Oncology
DX: Z51.12 Encounter for antineoplastic immunotherapy (principal); C50.411 Malignant neoplasm of upper-outer quadrant of right female breast; Z88.0 Allergy status to penicillin; Z88.5 Allergy status to narcotic agent
CPT/HCPCS: 96367; 96413; J1453; J1642; J3490

== ENCOUNTER 2020-06-26 09:01 | Outpatient (CLI) | payer SELFPAY ==
--- NOTE | 2020-06-26 10:39 | CT ---
CT OF THE CHEST, ABDOMEN AND PELVIS WITH IV CONTRAST INDICATION: History of breast cancer COMPARISON: CT the chest, abdomen and pelvis with contrast dated April 16, 2020 FINDINGS: CHEST: Lungs: There is worsening peripheral subpleural opacity and groundglass opacity involving the anterio r lateral aspect of the anterior segment and apical segment of the right upper lobe. There are areas of internal bronchiectasis. There is associated volume loss adjacent to the opacities. The opac ities appear more pronounced than on the prior examination. There is a calcified granuloma in the left lower lobe. Mild scarring in the left lung base is stable. Pleural space: No effusion. Mediastinum: There is a left subclavian chest wall port. Axilla: There are numerous surgical clips within the right axilla. There is prominent skin thickenin g as well as stromal thickening involving the right breast that appears similar to the prior. ABDOMEN: Liver: No focal lesion. Gallbladder: Normal appearing. Pancreas: Normal. Adrenal glands: Normal. Spleen: Normal. Kidneys and ureters: Normal. No hydronephrosis. Vasculature: Normal. Lymph nodes:No lymphadenopathy. Free fluid in abdomen:No free fluid is evident. PELVIS: Small and large bowel: Normal Appendix:Normal Bladder: Normal. Rectal and perirectal soft tissues:Normal. Reproductive structures: Surgically absent Free fluid in pelvis: No free fluid is evident. Lymphadenopathy pelvis: No lymphadenopathy is evident. Osseous structures: No acute osseous abnormality. No destructive osteolytic or osteoblastic lesion i s identified. There is scattered degenerative and osteoarthritic changes. Soft tissues:Normal. IMPRESSION: 1. Findings most consistent with progression of post therapy changes to the right upper lobe. The deg ree of subpleural groundglass opacity in the anterior aspect of the anterior segment of the right upper lobe and apical segment of the right upper lobe has progressed. However, within the opacities, there is bronchiectasis and surrounding traction volume loss with the adjacent pulmonary vasculature. Overall, the findings are suspicious for post radiation therapy fibrosis of the right up per lobe. Metastatic disease is felt to be less likely. Recommend continued CT follow-up. 2. Stable post therapy changes involving the right breast. 3. No evidence of metastatic disease to the abdomen, pelvis or osseous structures.
--- NOTE | 2020-06-26 10:41 | MRI ---
EXAM: MRI of the brain without and with contrast HISTORY: Breast cancer with brain metastases status post radiation COMPARISON: 04/16/2020 TECHNIQUE: Multiplanar multisequence MR images were obtained of the brain without and with IV contras t. FINDINGS: Scattered foci of high T2/FLAIR signal in the subcortical and periventricular white matter are likely secondary to small vessel ischemic disease. No restricted diffusion. There has been significant improvement in the enhancing masses scattered throughout the brain. A very small 7 mm area of enhancement is seen in the right cerebellar hemisphere where this previously measured 3.9 cm in length. This is along the lateral aspect of where the previous lesion was identifi ed. There is a small area of enhancement in the posterior right temporal lobe measuring 8 mm in size. This has decreased in size compared to the prior examination. There is a questionable small are a of enhancement in the left parietal periventricular white matter measuring 5 mm in size. The rest of the abnormal areas of enhancement scattered throughout the brain on the prior examination have res olved. No hydronephrosis. No extra-axial fluid collection or intracranial hemorrhage. The expected flow voids are present. Corpus callosum, pituitary, and craniocervical junction are within normal limits. The calvarium and overlying soft tissues are unremarkable. The paranasal sinuses and mastoid air cells are well aerated. IMPRESSION: Significant improvement in intracranial metastatic disease with 3 small areas of residual enhancement likely representing a small amount of residual disease.
--- NOTE | 2020-06-26 13:25 | NM ---
WHOLE BODY BONE SCAN: HISTORY: History of breast cancer RADIOPHARMACEUTICAL: 30 mCi technetium 99m-MDP injected intravenously COMPARISON:Prior bone scan dated April 08, 2019 and April 17, 2020 CORRELATION: CT of the chest, abdomen and pelvis dated June 18, 2020 FINDINGS: Focus of degenerative activity is again seen involving the right L5-S1 facet complex. No suspicious r adiotracer accumulation is evident. There is some mild uptake in seen within the soft tissues of the right breast likely related to therapy. IMPRESSION: No scintigraphic evidence of osseous metastatic disease.
[2020-06-26] MEDS ORDERED: Iopamidol 370 76% 100 ML VIAL ONE (15:38)
[2020-06-26] MEDS ORDERED: Magnevist 469MG/ML 20 ML VIAL ONE (15:56)
== END 2020-06-26 09:02 | disposition home or self-care (01) ==
LOC: CT 09:01
PROVIDERS: ATTEND Internal Medicine Hematology & Oncology
DX: C50.411 Malignant neoplasm of upper-outer quadrant of right female breast (principal)
CPT/HCPCS: 70553; 71260; 74177; 78306; A9503; A9579; Q9967

== ENCOUNTER 2020-07-19 12:52 | Day surgery (SDC) | payer OTHER, SELFPAY ==
[2020-07-19] MEDS ORDERED: Sodium Chloride 0.9% 20 ML ONE (12:57)
[2020-07-19 13:21] VITALS: BP 162/89; TEMP 98.3
== END 2020-07-19 15:10 | disposition home or self-care (01) ==
LOC: ONC/OP 12:52
PROVIDERS: ATTEND Internal Medicine Hematology & Oncology
DX: Z51.12 Encounter for antineoplastic immunotherapy (principal); C50.411 Malignant neoplasm of upper-outer quadrant of right female breast; Z17.0 Estrogen receptor positive status [ER+]; Z88.0 Allergy status to penicillin; Z88.5 Allergy status to narcotic agent
CPT/HCPCS: 96375; 96413; J1453; J1642; J3490; J7050; J9354

== ENCOUNTER 2020-08-09 11:24 | Day surgery (SDC) | payer SELFPAY ==
[2020-08-09] MEDS ORDERED: Sodium Chloride 0.9% 20 ML ONE (11:35)
== END 2020-08-09 12:59 | disposition home or self-care (01) ==
LOC: ONC/OP 11:24
PROVIDERS: ATTEND Internal Medicine Hematology & Oncology
DX: Z51.12 Encounter for antineoplastic immunotherapy (principal); C50.411 Malignant neoplasm of upper-outer quadrant of right female breast; Z88.0 Allergy status to penicillin; Z88.5 Allergy status to narcotic agent
CPT/HCPCS: 96367; 96413; J1453; J1642; J3490; J7050; J9354

== ENCOUNTER 2020-08-22 12:21 | Outpatient (CLI) | payer OTHER, SELFPAY ==
--- NOTE | 2020-08-22 14:12 | MRI ---
MRI of thebrain: 08/22/2020 COMPARISON:06/26/2020 HISTORY:Breast cancer with intracranial metastatic disease, evaluate following radiation treatment TECHNIQUE: Multiplanar multisequence MR imaging of thebrain with and without contrast Findings:The axial gradient echo imaging demonstrates no evidence for intracranial hemorrhage. No restricted diffusion on diffusion weighted imaging is seen to suggest the presence of acute infarc tion. There are multiple scattered foci of increased T2 and FLAIR signal within the white matter, evidence of small vessel disease. Within the posterior lateral aspect of the right cerebellar hemisphere on axial image 36 there is a t iny focus of enhancement measuring 4 mm, less conspicuous than on the 06/26/2020 exam. Posterior and superior to this within the medial posterior aspect of the right cerebellar cerebellar hemisphere cliff suring up to 6 mm there is an additional focus of nodular enhancement adjacent to a nonenhancing hypodense lesion suggesting minimal residual tumor adjacent to a previously treated lesion. This subc entimeter focus of enhancement is new when compared to the 06/26/2020 exam. There is no discrete enhancing lesion within the left cerebellar hemisphere. The prior examination demonstrated a posterior lateral right temporal lesion measuring 8 mm, now only demonstrating a residual 3 mm focus of enhancement. There is a enhancing lesion adjacent to the posterior horn of the right lateral ventricle measuring 5 mm, increased when compared to the prior ex amination. There is a vague enhancing lesion within the periventricular region adjacent to the posterior aspect of the body of the left lateral ventricle measuring 5 mm, slightly more prominent than on the prior exam. There is a rim-enhancing lesion within the anterior aspect of the left temporal lobe measuring approximately 1 cm, new when compared to the prior exam. There is a stable vague hypoenhancing lesion within the medial left parieto-occipital region on postcontrast axial image 117. Arterial flow voids at the axial level of the skull base appear grossly unremarkable on the T2-weight ed imaging. The visualized nasal sinuses and mastoid air cells are grossly unremarkable IMPRESSION:Multiple intracranial metastatic lesions, some of which have increased in conspicuity when compared to the examination and some of which have decreased. Please see above discussion. These findings represent a mixed response to therapy.
[2020-08-22] MEDS ORDERED: Magnevist 469MG/ML 20 ML VIAL ONE (16:30)
== END 2020-08-22 12:22 | disposition home or self-care (01) ==
LOC: MRI 12:21
PROVIDERS: ATTEND Radiology Radiation Oncology
DX: C79.31 Secondary malignant neoplasm of brain (principal); C50.919 Malignant neoplasm of unspecified site of unspecified female breast
CPT/HCPCS: 70553; A9579

== ENCOUNTER 2020-08-30 11:17 | Day surgery (SDC) | payer SELFPAY ==
[2020-08-30] MEDS ORDERED: Sodium Chloride 0.9% 20 ML ONE (11:44)
[2020-08-30 12:14] VITALS: BP 148/84; TEMP 98.2
== END 2020-08-30 13:57 | disposition home or self-care (01) ==
LOC: ONC/OP 11:17
PROVIDERS: ATTEND Internal Medicine Hematology & Oncology
DX: Z51.12 Encounter for antineoplastic immunotherapy (principal); C50.411 Malignant neoplasm of upper-outer quadrant of right female breast; Z88.0 Allergy status to penicillin; Z88.5 Allergy status to narcotic agent
CPT/HCPCS: 96367; 96413; J1453; J1642; J3490

== ENCOUNTER 2020-09-13 12:37 | Outpatient (CLI) | payer SELFPAY | END 2020-09-13 12:38 | disposition home or self-care (01) | LOC: ULT 12:37 | PROVIDERS: ATTEND Internal Medicine Hematology & Oncology | DX: Z51.11 Encounter for antineoplastic chemotherapy (principal); C50.411 Malignant neoplasm of upper-outer quadrant of right female breast; I08.1 Rheumatic disorders of both mitral and tricuspid valves; Z79.899 Other long term (current) drug therapy | CPT/HCPCS: 93306 ==

== ENCOUNTER 2020-09-20 11:28 | Day surgery (SDC) | payer SELFPAY ==
[2020-09-20] MEDS ORDERED: Sodium Chloride 0.9% 20 ML ONE (12:04)
== END 2020-09-20 13:27 | disposition home or self-care (01) ==
LOC: ONC/OP 11:28
PROVIDERS: ATTEND Internal Medicine Hematology & Oncology
DX: Z51.11 Encounter for antineoplastic chemotherapy (principal); C50.411 Malignant neoplasm of upper-outer quadrant of right female breast; Z88.0 Allergy status to penicillin; Z88.5 Allergy status to narcotic agent
CPT/HCPCS: 96367; 96413; J1453; J1642; J3490

== ENCOUNTER 2020-10-04 07:48 | Outpatient (CLI) | payer OTHER, SELFPAY ==
--- NOTE | 2020-10-04 10:34 | CT ---
EXAM: CT Chest Abd Pelvis W Con PROVIDED CLINICAL HISTORY: Breast cancer COMPARISON: 06/26/2020 04/16/2020 FINDINGS: Chest: The heart, pericardium and great vessels demonstrate a stable CT appearance. There is no evidence for thoracic lymph node enlargement. There is interval decrease in subpleural parenchymal opacity involving the right upper lobe. There is no evidence for new concerning pulmonary parenchymal opacity . No pleural fluid, pleural thickening or pneumothorax apparent. There is stable skin thickening and reticulation of the fat involving the right breast. Abdomen and pelvis: There are several subcentimeter hypodensities involving the hepatic parenchyma, stable as compared wi 04/16/2020 and less well seen on the 06/26/2020 study. The spleen, pancreas, kidneys and adrenal glands appear unremarkable. There is no bowel dilatation, inflammatory fat stranding, free fluid or l ymph node enlargement apparent. The regional major vascular structures appear unremarkable. Osseous structures: No concerning lytic or blastic bony lesions are seen. IMPRESSION: No detrimental interval change.
--- NOTE | 2020-10-04 11:17 | MRI ---
MRI BRAIN WITH AND WITHOUT CONTRAST: Date: 10/04/2020 INDICATION: Breast cancer with brain mets. Restaging. Comparison made to recent MRI brain dated 08/22/2020. FINDINGS: Ventricles remain normal size and position. The white matter hyperintensity seen on FLAIR sequence ap pears stable from the prior study. There are scattered enhancing lesions consistent with metastatic disease. Gliosis in the right cerebe llar hemisphere appears stable. Gliosis surrounding a lesion in the parasagittal area of left parieta l lobe appears stable. Review of postcontrast images with direct comparison to the prior exam is made. There are metastatic lesions in the right cerebellum which have been previous described. There is an irregularly shaped area of low signal with surrounding nodular enhancement in the right cerebellum. T he nodular enhancement has increased since 08/22/2020. A nodular enhancing lesion previously was eber ured at 5-6 mm. This lesion now measures 10.0 mm. There are other smaller areas of nodular enhancemen t surrounding this area of low signal which appear to have increased since 08/22/2020. On the prior exam, there were two enhancing lesions described in the right posterior temporal lobe. T here is focal enhancement within the cortex of the posterolateral right temporal lobe and this has in creased since the prior exam. A small lesion was previously described at approximately 3.0 mm. There is now increasing linear cortical enhancement with a nodular area of enhancement on axial imaging cliff suring 5-6 mm. Another tiny focal area of nodular enhancement in the posterior right temporoparietal lobe seen on axial image 93 measures 5-6 mm today, where as it previously measured in the 4-5 mm rang e. A ring enhancing lesion just inferior to the head of the caudate on the left and adjacent to the infe rior left lateral ventricle is larger and shows increased enhancement today measuring up to 11.0 mm. This lesion previously measured approximately 8.0 mm. Focal enhancing lesion in the left periventricular white matter seen on image 123 axial is similar to the prior exam. There is a new irregularly shaped ring enhancing lesion seen today in the corpus callosum anteriorly just to the right of midline. This lesion measures approximately 10.0 mm in the axial plane seen on i mage 124. The ring enhancing lesion previously described in the anterior left temporal lobe measuring 10.0 mm o n the prior study appears stable. This was seen on axial image 68. The lesion in the parasagittal region of the left parietal lobe adjacent to the falx does not appear significantly changed in size; however, the peripheral enhancement has increased. This lesion is seen on axial image 139. There is new nodular enhancement adjacent to the posterior aspect of the right lateral ventricle with in the periventricular white matter seen on axial image 112. There are several small nodular foci of enhancement at this location which have increased since the prior study. IMPRESSION: Progression of metastatic disease in the brain when compared to exam of 08/22/2020 as detailed above. POS: NAYA
[2020-10-04] MEDS ORDERED: Iopamidol-370 76% 500 ML 1 ML ONE (13:29)
--- NOTE | 2020-10-04 13:34 | NM ---
NUCLEAR MEDICINE BONE SCAN WHOLE BODY: (Skeletal scintigraphy) DATE: 10/04/2020 HISTORY: 55-year-old female with malignant neoplasm of upper outer quadrant of right female breast TECHNIQUE: IV injection of technetium 99m-MDP: 30.9 mCi 3 hour delayed whole body skeletal scintigraphy in anterior and posterior views. FINDINGS: There are no foci of asymmetrically increased uptake that are particularly suspicious for bone metast ases. There is increased uptake at a right posterior inferior lumbar facet joint representing degenerative changes. There is no interval change overall since 06/26/2020. IMPRESSION: No compelling evidence of skeletal metastasis.
[2020-10-04] MEDS ORDERED: Magnevist 469MG/ML 20 ML VIAL ONE (13:45)
== END 2020-10-04 07:49 | disposition home or self-care (01) ==
LOC: MRI 07:48
PROVIDERS: ATTEND Internal Medicine Hematology & Oncology
DX: C50.411 Malignant neoplasm of upper-outer quadrant of right female breast (principal); C79.31 Secondary malignant neoplasm of brain
CPT/HCPCS: 70553; 71260; 74177; 78306; A9503

== ENCOUNTER 2020-10-24 13:03 | Day surgery (SDC) | payer SELFPAY ==
[~2020-10-24 13:03] MED LIST changes: -ADO TRASTUZUMAB EMTANSINE IVPB SCH; +TRASTUZUMAB ANNS IVPB SCH
[2020-10-24] MEDS ORDERED: Sodium Chloride 0.9% 20 ML ONE ×2 (13:08→13:13)
[2020-10-24 15:18] VITALS: BP 112/71; TEMP 98.4
== END 2020-10-24 16:37 | disposition home or self-care (01) ==
LOC: ONC/OP 13:03
PROVIDERS: ATTEND Internal Medicine Hematology & Oncology
DX: Z51.12 Encounter for antineoplastic immunotherapy (principal); C50.411 Malignant neoplasm of upper-outer quadrant of right female breast; Z88.0 Allergy status to penicillin; Z88.5 Allergy status to narcotic agent
CPT/HCPCS: 96413; J1642; J7050; Q5117

== ENCOUNTER 2020-11-13 10:22 | Day surgery (SDC) | payer SELFPAY ==
[2020-11-13 10:48] VITALS: BP 124/71; TEMP 97.1
[2020-11-13] MEDS ORDERED: SODIUM CHLORIDE 0.9% IV ONE (11:01)
[2020-11-13] MEDS ORDERED: TRASTUZUMAB ANNS IV ONE (11:01)
[2020-11-13] MEDS ORDERED: Sodium Chloride 0.9% 20 ML ONE (11:38)
== END 2020-11-13 11:51 | disposition home or self-care (01) ==
LOC: ONC/OP 10:22
PROVIDERS: ATTEND Internal Medicine Hematology & Oncology
DX: Z51.12 Encounter for antineoplastic immunotherapy (principal); C50.411 Malignant neoplasm of upper-outer quadrant of right female breast; Z17.0 Estrogen receptor positive status [ER+]; Z88.0 Allergy status to penicillin; Z88.5 Allergy status to narcotic agent
CPT/HCPCS: 96413; J1642; J7050; Q5117

== ENCOUNTER 2020-11-30 21:36 | Inpatient (IN) | payer SELFPAY ==
[2020-11-30] MEDS ORDERED: Morphine 4 MG/ML VIAL ONE (22:15)
[2020-11-30] MEDS ORDERED: Ondansetron PF 4 MG/2 ML Vial ONE (22:15)
--- NOTE | 2020-11-30 22:24 | RAD ---
EXAM: CHEST ONE VIEW HISTORY: Nausea, vomiting, and diarrhea. Lethargy. COMPARISON: 04/04/2019 FINDINGS: Left-sided Mediport catheter remains in place. Cardiac silhouette and pulmonary vasculature are withi n normal limits. Calcified granuloma is seen at the left lung base. Linear density is seen in the right suprahilar region which may represent area of scarring. No consolidation or pleural fluid is id entified. Surgical clips overlie the right axilla. Mild degenerative changes are noted in the spine. IMPRESSION: No acute cardiopulmonary process.
[2020-11-30] MEDS ORDERED: Cefepime 2 GM VIAL ONE (22:31)
[2020-11-30] MEDS ORDERED: Vancomycin 1 GM/200 ML BAG ONE (22:31)
[2020-11-30 22:42] LABS: Hemoglobin 20.2 g/dL (12.0-16.0); Mean Corpuscular HGB CONC 35.9 g/dL (32.0-36.0); Mean Corpuscular Hemoglobin 34.5 pg (27.0-31.0); RBC Distribution Width 16.3 % (11.5-14.5); Red Blood Cell (RBC) Count 5.87 mill/uL (4.20-5.40)
[2020-11-30 22:47] LABS: ALT (SGPT) 29 U/L (8-55); AST (SGOT) 28 U/L (5-34); Albumin 4.2 g/dL (3.5-5.0); Alkaline Phosphatase 101 U/L (40-110); Anion Gap 20 mmol/L (10-20); BUN (Urea Nitrogen) 81 mg/dL (9.8-20.1); Bilirubin, Total 1.1 mg/dL (0.2-1.2); Calc. Creatinine Clearance 0 mL/min (70-130); Calcium 10.3 mg/dL (7.8-10.44); Carbon Dioxide 22 mmol/L (22-29); Chloride 101 mmol/L (98-107); Globulin 3.3 g/dL (2.4-3.5); Glucose 195 mg/dL (70-105); Potassium 4.2 mmol/L (3.5-5.1); Protein, Total 7.5 g/dL (6.0-8.3); Sodium 139 mmol/L (136-145)
[2020-11-30 23:02] LABS: Band 31 % (5-11); Lymphocytes 14 % (21-51); MDiff Complete? YES; Mean Platelet Volume 8.2 fL (7.4-10.4); Metamyelocyte 1 % (0-0); Monocytes 14 % (0-10); Myelocyte 2 % (0-0); Neutrophil 37 % (42-75); Nucleated RBC 1 % (0); Platelet Count 307 thou/uL (130-400); Reactive Lymphocytes 1 % (0-10); White Blood Cell (WBC) Count 21.4 thou/uL (4.8-10.8)
--- NOTE | 2020-11-30 23:25 | CT ---
CT HEAD WITHOUT IV CONTRAST COMPARISON: 04/16/2020. MRI brain on 10/04/2020 HISTORY: Altered mental status. History of metastatic breast cancer. TECHNIQUE: Axial CT imaging at 5 mm intervals from vertex through skull base without contrast FINDINGS: Low-attenuation area right cerebellar hemisphere is again present compatible with metastatic lesion i n this region. Low-attenuation area in a left parafalcine location left parietal region is again present. This area is larger in size compared to CT exam on 04/16/2020 previously measuring 18 mm x 9 mm and now measures 21 mm x 14 mm. This demonstrated peripheral nodular enhancement related to metastatic lesion on recent MRI exam. Small low-attenuation area in the right occipital lobe is seen which was not present on prior CT of the head, but a focus of enhancement was seen in this region on recent MRI related to metastatic lesion. Additional metastatic lesions on prior MRI exam are not w ell delineated on this CT examination. There is a diminished attenuation periventricular white matter again present likely attributable to c hronic small vessel ischemic changes. Dilated perivascular space in the inferior left basal ganglia is again present. There is no evidence of an acute infarction, hemorrhage, mass effect, or midline sh ift. The ventricular system is normal in size, shape, and position. Mild cerebral volume loss is present. Skull base has a normal CT appearance. Visualized paranasal sinuses are clear. Osseous structures appear intact. IMPRESSION: 1. No acute intracranial abnormality demonstrated. 2. Scattered low-attenuation areas in the left posterior parasagittal parietal region, right occipita l lobe, and right cerebellar hemisphere are again seen and were present on recent MRI exam demonstrating areas of nodular enhancement. Additional enhancing lesions within the cerebral hemisphe res and right cerebellar hemisphere on recent MRI are not well delineated on this nonenhanced CT head.
[2020-12-01 01:18] LABS: Lactic Acid 2.3 mmol/L (0.5-2.2)
[2020-12-01] MEDS ORDERED: Promethazine HCl 25 MG in Sodium Chloride 0.9% 50 ML IVPB PRN (02:34)
[2020-12-01] MEDS ORDERED: Ondansetron PF 4 MG/2 ML Vial IVP PRN ×2 (02:45→14:59)
[2020-12-01] MEDS ORDERED: Ondansetron ODT 4 MG TAB SL PRN (02:45)
[2020-12-01] MEDS ORDERED: Acetaminophen 325 MG TAB PO PRN (03:13)
[2020-12-01] MEDS ORDERED: Promethazine HCl 12.5 MG in Sodium Chloride 0.9% 50 ML IVPB PRN (03:13)
[2020-12-01] MEDS: Lactated Ringer's 1,000 ML IV SCH ×3 (03:41→14:57)
--- NOTE | 2020-12-01 03:42 | PDOC.HHP ---
Hospitalist HPI - History of Present Illness History of Present Illness: ADMISSION DATE: 12/01/2020 TIME OF ASSESSMENT: 0300 PRIMARY CARE PHYSICIAN: Ash CHIEF COMPLAINT: Lethargic, nausea and vomiting HPI: The patient is a 55-year-old female past medical history significant for breast and brain metastatic cancer. states she has had nausea, vomiting, diarrhea for 10 days due to her oral chemo. She went earlier this week to the cancer center twice for IV fluids which would temporarily make her feel better but within 4 hours she was lethargic again. No reported fever. Home medications were unable to help with her nausea or diarrhea. Patient has very minimal intake for the past week. Endorses generalized weakness and altered mentation at times. No contact with sick persons. ED COURSE: Vital Signs: Blood pressure 128/81, pulse 78, respiratory rate 15, no pain, O2 saturation 90% on room air Today in the ER they completed a brain CT, chest x-ray, EKG, lab work. She was administered 3 L of normal saline, vancomycin 1 g IV, cefepime 2 g IV, Zofran 8 mg IV, morphine 4 mg IV. PAST MEDICAL HISTORY: Breast and brain cancer PAST SURGICAL HISTORY: Lymphectomy right side, hysterectomy SOCIAL HISTORY: Patient lives at home with her . Denies smoking or drug use. Patient drinks socially approximately twice a month but none since she has started this oral chemo. FAMILY HISTORY: Noncontributory ALLERGIES: Codeine and penicillin CURRENT MEDICATIONS: We will obtain from pharmacy, unknown names at this time Hospitalist ROS - Review of Systems Constitutional: reports: weakness Gastrointestinal: reports: nausea, vomiting, diarrhea All other systems reviewed; all pertinent +/- noted in HPI/Subj - Medication Medications: Active Medications Generic Name Dose Route Start Last Admin Trade Name Freq PRN Reason Stop Dose Admin Ondansetron HCl 4 mg 12/01/20 02:45 12/01/20 03:30 Ondansetron Pf 4 Mg/2 Ml Vial IVP 12/01/20 14:39 4 mg Q6H PRN Administration Nausea/Vomiting - Exam General Appearance: awake alert, ill appearing Eye: PERRL ENT: normocephalic atraumatic, dry oral mucosa Neck: supple Heart: RRR, no murmur, no gallops, no rubs, normal peripheral pulses Respiratory: CTAB, no wheezes, no rales, no ronchi, normal chest expansion Gastrointestinal: soft, non-tender, non-distended, normal bowel sounds, no palpable masses Extremities: no edema Neurological: no focal deficits Musculoskeletal: generalized weakness Psychiatric: A&O x 3, flat affect Hospitalist Results - Labs Result Diagrams: 11/30/20 22:10 11/30/20 22:10 Lab results: WBC 21.4 thou/uL (4.8-10.8) H 11/30/20 22:10 Hgb 20.2 g/dL (12.0-16.0) H* 11/30/20 22:10 Hct 56.3 % (36.0-47.0) H 11/30/20 22:10 MCV 96.0 fL (78.0-98.0) 11/30/20 22:10 Plt Count 307 thou/uL (130-400) 11/30/20 22:10 Band Neuts % (Manual) 31 % (5-11) H 11/30/20 22:10 Sodium 139 mmol/L (136-145) 11/30/20 22:10 Potassium 4.2 mmol/L (3.5-5.1) 11/30/20 22:10 Chloride 101 mmol/L (98-107) 11/30/20 22:10 Carbon Dioxide 22 mmol/L (22-29) 11/30/20 22:10 BUN 81 mg/dL (9.8-20.1) H 11/30/20 22:10 Creatinine 2.68 mg/dL (0.6-1.1) H 11/30/20 22:10 Glucose 195 mg/dL (70-105) H 11/30/20 22:10 Lactic Acid 2.3 mmol/L (0.5-2.2) H 12/01/20 00:52 Calcium 10.3 mg/dL (7.8-10.44) 11/30/20 22:10 Total Bilirubin 1.1 mg/dL (0.2-1.2) 11/30/20 22:10 AST 28 U/L (5-34) 11/30/20 22:10 ALT 29 U/L (8-55) 11/30/20 22:10 Alkaline Phosphatase 101 U/L (40-110) 11/30/20 22:10 Serum Total Protein 7.5 g/dL (6.0-8.3) 11/30/20 22:10 Albumin 4.2 g/dL (3.5-5.0) 11/30/20 22:10 - EKG Interpretation EKG: Sinus rhythm 106 bpm - Radiology Interpretation CT scan - head Status: report reviewed by me Additional Comment: IMPRESSION: 1. No acute intracranial abnormality demonstrated. 2. Scattered low-attenuation areas in the left posterior parasagittal parietal region, right occipital lobe, and right cerebellar hemisphere are again seen and were present on recent MRI exam demonstrating areas of nodular enhancement. Additional enhancing lesions within the cerebral hemispheres and right cerebellar hemisphere on recent MRI are not well delineated on this nonenhanced CT head. Chest x-ray Status: image reviewed by me, report reviewed by me Additional Comment: IMPRESSION: No acute cardiopulmonary process. Hospitalist H&P A/P - Plan Plan: Severe dehydration Patient with over a week of vomiting and diarrhea, had some altered mentation but improved after rehydration Continue aggressive IV rehydration Recheck labs in a.m. to see if any improvement Leukocytosis on initial blood draw, continue IV antibiotics at this time no specific infectious source, will see if there is improvement after her fluids this morning Nausea and vomiting, diarrhea As needed antiemetics available along with as needed analgesics Continue hydration N.p.o. at this time Acute kidney injury Continue IV hydration Recheck labs in a.m. and continue to follow Breast and brain metastatic cancer Consult oncology in a.m. Patient and family requested palliative care for advanced directive and medical power of privacy attorney assistance VTE prophylaxis in place with SCDs CODE STATUS: Full Surrogate decision-maker is her Patient has been discussed with Dr. Scot Presley
[2020-12-01 04:38] VITALS: BMI 21.4
[2020-12-01] MEDS: Sodium Chloride 0.9% 1,000 ML IV SCH ×3 (05:16→19:54)
[2020-12-01 06:06] LABS: ALT (SGPT) 21 U/L (8-55); AST (SGOT) 16 U/L (5-34); Albumin 2.9 g/dL (3.5-5.0); Alkaline Phosphatase 66 U/L (40-110); Anion Gap 12 mmol/L (10-20); BUN (Urea Nitrogen) 60 mg/dL (9.8-20.1); Bilirubin, Total 0.7 mg/dL (0.2-1.2); Calc. Creatinine Clearance 36 mL/min (70-130); Calcium 7.5 mg/dL (7.8-10.44); Carbon Dioxide 17 mmol/L (22-29); Chloride 115 mmol/L (98-107); Globulin 1.9 g/dL (2.4-3.5); Glucose 132 mg/dL (70-105); Potassium 3.3 mmol/L (3.5-5.1); Protein, Total 4.8 g/dL (6.0-8.3); Sodium 141 mmol/L (136-145)
[2020-12-01 08:22] LABS: Band 17 % (5-11); Hemoglobin 15.3 g/dL (12.0-16.0); Lymphocytes 18 % (21-51); MDiff Complete? YES; Mean Corpuscular HGB CONC 34.4 g/dL (32.0-36.0); Mean Corpuscular Hemoglobin 32.7 pg (27.0-31.0); Mean Platelet Volume 7.8 fL (7.4-10.4); Monocytes 6 % (0-10); Neutrophil 59 % (42-75); Nucleated RBC 2 % (0); Platelet Count 210 thou/uL (130-400); Red Blood Cell (RBC) Count 4.67 mill/uL (4.20-5.40); White Blood Cell (WBC) Count 17.2 thou/uL (4.8-10.8)
[2020-12-01] MEDS ORDERED: Vancomycin HCl 750 MG in Sodium Chloride 0.9% 250 ML 250 ML IVPB SCH (09:00)
[2020-12-01 10:17] LABS: SARS-CoV-2 MS2 Positive; SARS-CoV-2 N Gene Negative; SARS-CoV-2 S Gene Negative; SARS-CoV-2 by NAA Not Detected (NotDetected); SARS-CoV-2 orf1ab Negative
[2020-12-01] MEDS: Cefepime 2 GM in Sodium Chloride 0.9% 100 ML IVPB SCH ×2 (12:50→23:46)
--- NOTE | 2020-12-01 15:11 | PDOC.HOSPP ---
- Subjective Subjective: Patient was seen examined at bedside. Discussed with her at bedside. Still has no appetite. Renal function improved with IV fluid hydration. No fever. Leukocytosis have improved. Cultures so far no growth. She is currently is on empiric IV antibiotics. Discussed with Dr. Siddiqi, continue supportive care at this point. - Objective Vital Signs & Weight: Vital Signs (12 hours) Temp Pulse Resp BP Pulse Ox 12/01/20 12:02 97.6 F 92 14 140/93 H 100 12/01/20 08:01 98.8 F 88 14 139/85 100 Weight Weight 121 lb I&O: 11/30/20 12/01/20 12/02/20 06:59 06:59 06:59 Intake Total 330 Output Total 1 Balance 329 Result Diagrams: 12/01/20 06:03 12/01/20 05:10 Radiology Reviewed by me: Yes EKG Reviewed by me: Yes Hospitalist ROS - Medication Medications: Active Medications Generic Name Dose Route Start Last Admin Trade Name Freq PRN Reason Stop Dose Admin Cefepime HCl 2 gm/ Sodium 100 mls @ 200 mls/hr 12/01/20 11:00 12/01/20 12:50 Chloride IVPB 100 mls 1100,2300 ANTHONY Administration - Exam General Appearance: NAD Eye: PERRL ENT: normocephalic atraumatic Neck: supple Heart: RRR Respiratory: CTAB Gastrointestinal: soft, non-tender Extremities: no cyanosis Skin: normal turgor Neurological: cranial nerve grossly intact Musculoskeletal: normal tone Psychiatric: normal affect, normal behavior, A&O x 3 Hosp A/P - Plan Patient is an unfortunate 55 years old female who has significant past medical history of 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 SIGIFREDO - d/t volume depletion --improving, cont IVF hydration. supportive cares Dehydration d/t chemotherapy --cont mgt as above --replace labs N/V/D --d/t chemotherapy --check C diff --supportive cares Leukocytosis --improving. no evidence of infection. follow cultures. cont empiric IV abx --check C diff as above. Hypokalemia --replaced, follow AM labs Metastatic breast Ca --oncology is following Essential HTN --resume home med, propranolol.
[2020-12-01] MEDS: Loperamide HCl 2 MG CAP PO PRN (15:14)
[2020-12-01] MEDS ORDERED: Potassium Chloride 40 MEQ in Premix Bag 1 BAG IVPB SCH (15:15)
[2020-12-01] MEDS: Aluminum & Magnesium Hydroxide 60 ML, diphenhydrAMINE 150 MG, Lidocaine 2% Viscous Solu... SSW SCH ×2 (16:34→23:00)
[2020-12-01] MEDS: Propranolol 40 MG TAB PO SCH (21:01)
[2020-12-01] MEDS: Vancomycin 1 GM in Premix Bag 1 BAG IVPB SCH (23:46)
[2020-12-02 04:43] LABS: Anion Gap 11 mmol/L (10-20); BUN (Urea Nitrogen) 30 mg/dL (9.8-20.1); Calc. Creatinine Clearance 57 mL/min (70-130); Carbon Dioxide 20 mmol/L (22-29); Chloride 118 mmol/L (98-107); Glucose 139 mg/dL (70-105); Magnesium 2.2 mg/dL (1.6-2.6); Sodium 146 mmol/L (136-145)
[2020-12-02 05:33] LABS: Band 26 % (5-11); Hemoglobin 15.9 g/dL (12.0-16.0); Lymphocytes 4 % (21-51); MDiff Complete? YES; Mean Corpuscular HGB CONC 34.4 g/dL (32.0-36.0); Mean Corpuscular Hemoglobin 32.8 pg (27.0-31.0); Mean Corpuscular Volume 95.3 fL (78.0-98.0); Mean Platelet Volume 7.7 fL (7.4-10.4); Metamyelocyte 1 % (0-0); Monocytes 14 % (0-10); Myelocyte 3 % (0-0); Neutrophil 52 % (42-75); Platelet Count 247 thou/uL (130-400); RBC Distribution Width 16.5 % (11.5-14.5); Red Blood Cell (RBC) Count 4.86 mill/uL (4.20-5.40); White Blood Cell (WBC) Count 20.2 thou/uL (4.8-10.8)
[2020-12-02] MEDS: Loperamide HCl 2 MG CAP PO PRN (06:21)
[2020-12-02] MEDS: Sodium Chloride 0.9% 1,000 ML IV SCH ×3 (06:22→23:42)
[2020-12-02] MEDS: Aluminum & Magnesium Hydroxide 60 ML, diphenhydrAMINE 150 MG, Lidocaine 2% Viscous Solu... SSW SCH ×4 (06:22→21:01)
[2020-12-02] MEDS: Propranolol 40 MG TAB PO SCH ×2 (09:28→19:55)
[2020-12-02] MEDS: Morphine 2 MG/ML VIAL SLOW IVP PRN ×2 (09:37→19:56)
[2020-12-02] MEDS ORDERED: hydrALAZINE 20 MG/ML VIAL SLOW IVP PRN (10:00)
[2020-12-02] MEDS ORDERED: Potassium Chloride 40 MEQ in Premix Bag 1 BAG IVPB SCH (10:45)
[2020-12-02] MEDS: Cefepime 2 GM in Sodium Chloride 0.9% 100 ML IVPB SCH ×2 (11:14→23:39)
[2020-12-02] MEDS ORDERED: Iopamidol-370 76% 500 ML 1 ML ONE (11:58)
[2020-12-02] MEDS: Sucralfate 1 GM TAB PO SCH ×3 (13:30→19:55)
--- NOTE | 2020-12-02 14:45 | CT ---
CT abdomen and pelvis with IV contrast HISTORY: Abdominal pain. Hiccups. COMPARISON: 10/04/2020. FINDINGS: Calcified lesion at the left lung base is stable. Tiny low-density lesions throughout the l iver are too small to characterize. Stable. No free air or free fluid. The inferior vena cava and renal veins are very thin. Fluid is present throughout the small bowel and the colon. No evidence of obstruction. Involving the small bowel more than the colon is subtle low-density wall thickening resulting in more conspicuous enhancement of the mucosa. No focal inflammation is apparent. IMPRESSION : Diminished intravascular volume as evidenced by thinning of the IVC and renal veins. This may result from the same cause for diffuse mild edematous appearance of the bowel wall. Cause is not evident. No bowel obstruction or focal inflammation.
--- NOTE | 2020-12-02 15:09 | PDOC.HOSPP ---
- Subjective Subjective: Patient was seen examined at bedside. She complaining of epigastric pain today. Stat CT was done, no significant finding. Suspect likely due to gastritis/candidiasis esophagitis. Renal functions normalized. Not much a ppetite. Potassium slightly low at 3.0 - Objective Vital Signs & Weight: Vital Signs (12 hours) Temp Pulse Resp BP BP Pulse Ox 12/02/20 12:00 97.7 F 90 16 111/79 98 12/02/20 11:36 88 152/102 H 12/02/20 10:43 151/104 H 12/02/20 09:50 135/96 H 12/02/20 08:00 97.6 F 88 14 136/97 H 98 12/02/20 03:45 98.5 F 80 16 131/86 98 Weight Weight 121 lb I&O: 12/01/20 12/02/20 12/03/20 06:59 06:59 06:59 Intake Total 330 Output Total 1 Balance 329 Result Diagrams: 12/02/20 03:50 12/02/20 03:50 Hospitalist ROS - Medication Medications: Active Medications Generic Name Dose Route Start Last Admin Trade Name Freq PRN Reason Stop Dose Admin Al Hydroxide/Mg Hydroxide 60 0 ml 12/01/20 17:00 12/02/20 13:30 ml/ Diphenhydramine HCl 150 mg SSW Not Given / Lidocaine HCl 60 ml/ ACHS ANTHONY Nystatin 6,000,000 units Hydralazine HCl 10 mg 12/02/20 10:00 12/02/20 11:36 Hydralazine 20 Mg/Ml Vial SLOW IVP 10 mg Q4H PRN Administration Persistent BP Elevations Promethazine HCl 12.5 mg/ 50.5 mls @ 202 mls/hr 12/01/20 03:13 12/01/20 23:49 Sodium Chloride IVPB 50.5 mls Q6H PRN Administration Nausea/Vomiting Cefepime HCl 2 gm/ Sodium 100 mls @ 200 mls/hr 12/01/20 11:00 12/02/20 11:14 Chloride IVPB 100 mls 1100,2300 ANTHONY Administration Vancomycin HCl 1 gm/ Device 200 mls @ 200 mls/hr 12/01/20 23:59 12/01/20 23:46 IVPB 200 mls 2359 ANTHONY Administration Sodium Chloride 1,000 mls @ 75 mls/hr 12/01/20 15:02 12/02/20 06:22 Normal Saline 0.9% IV 1,000 mls .[id number] ANTHONY Administration Loperamide HCl 2 mg 12/01/20 15:03 12/02/20 06:21 Loperamide Hcl 2 Mg Cap PO 2 mg Q3H PRN Administration Diarrhea/Loose Stools Memantine 10 mg 12/01/20 21:00 12/02/20 09:28 Memantine Hcl 10 Mg Tab PO 10 mg BID ANTHONY Administration Morphine Sulfate 2 mg 12/01/20 03:13 12/02/20 09:37 Morphine 2 Mg/Ml Vial SLOW IVP 2 mg Q4H PRN Administration Moderate Pain (4-6) Ondansetron HCl 4 mg 12/01/20 14:59 12/02/20 11:19 Ondansetron Pf 4 Mg/2 Ml Vial IVP 4 mg Q6H PRN Administration Nausea/Vomiting Propranolol HCl 40 mg 12/01/20 21:00 12/02/20 09:28 Propranolol 40 Mg Tab PO 40 mg BID ANTHONY Administration Sucralfate 1 gm 12/02/20 11:30 12/02/20 13:30 Sucralfate 1 Gm Tab PO Not Given ACHS ANTHONY - Exam General Appearance: NAD Eye: PERRL ENT: normocephalic atraumatic Neck: supple Heart: RRR, diminshed peripheral pulses Respiratory: CTAB Gastrointestinal: soft Extremities: no cyanosis Skin: normal turgor, no lesions Neurological: cranial nerve grossly intact Musculoskeletal: normal tone, normal strength Hosp A/P - Plan Patient is an unfortunate 55 years old female who has significant past medical history of 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 Epigastric pain --Suspect due to gastritis/cristal esophagitis --CT abd/pel no significant findings. Cont with supportive cares --change PPI to BID, add carafate. cont Magic Mouthwash with Nystatin ssw --diet as kiah. supportive cares SIGIFREDO - d/t volume depletion. Resolved with IVF hydration --Cr normalized. Not much appetite, cont MIVF Dehydration d/t chemotherapy --cont mgt as above --replace labs N/V/D --d/t chemotherapy --C Diff negative --supportive cares Leukocytosis --improving. no evidence of infection. follow cultures. cont empiric IV abx --C diff negative Hypokalemia --replaced, follow AM labs Metastatic breast Ca --oncology is following Essential HTN --resume home med, propranolol.
--- NOTE | 2020-12-02 18:25 | CON ---
DATE OF CONSULTATION: 12/01/2020 REASON FOR CONSULTATION: Metastatic breast cancer associated with volume depletion. HISTORY OF PRESENT ILLNESS: The patient is a 55-year-old woman with metastatic estrogen receptor positive/HER2 positive breast cancer, initially diagnosed in 2019. She has been on multiple treatment regimens and most recently has been started on Xeloda and tucatinib. She has had difficulty with diarrhea, nausea, vomiting, and poor oral intake. Xeloda was recently held, but she has continued the tucatinib. On the day of admission, she presented with a 10-day history of nausea, vomiting, and nonbloody diarrhea with hypotension despite being seen in our office twice in the previous week for IV fluids. There has been no history of fever. Laboratory studies on admission were significant for a white blood cell count of 21.4 with a left shift including myelocytes, metamyelocytes, and nucleated red cells. The hemoglobin was 20 and platelet count 307,000. The electrolytes were normal, but the creatinine was 2.68 and BUN 81. Notably, her creatinine at baseline is typically normal. Creatinine and Hgb have improved with IV fluids. She continues intravenous fluids and antiemetics with pain control. I am asked to see her at this time to provide further management recommendations. PAST MEDICAL HISTORY: ALLERGIES: SHE DESCRIBES SENSITIVITY TO CODEINE AND PENICILLINS. MEDICAL ILLNESS: There is history of hypertension in the past. SURGERIES: She has undergone and hysterectomy in 2000 and 2004 respectively. FAMILY HISTORY: There is no history of breast cancer or ovarian cancer. There is a family history of heart disease. PERSONAL HISTORY: She is and her is present during my evaluation. She has one child. She does not use tobacco and she is a social drinker. REVIEW OF SYSTEMS: Except as mentioned in the history of present illness, she denies significant cardiopulmonary, GI, , musculoskeletal, or neurologic complaints. PHYSICAL EXAMINATION: VITAL SIGNS: Temperature 97.6, pulse 92 and regular, respirations 14, blood pressure 140/93. GENERAL: She is a chronically ill-appearing woman, in no acute distress. She is alert, oriented, cooperative. She is appropriate in conversation. She is lying flat in bed. HEENT: The extraocular movements are intact. Pupils are equal, round, reactive to light. NECK: Supple. LUNGS: Clear. CARDIOVASCULAR: Regular rate and rhythm without murmur, rub, gallop, or click. ABDOMEN: No tenderness, organomegaly, masses, bruits, or ascites. EXTREMITIES: No clubbing, cyanosis, or edema. SKIN: Normal. LYMPH: No adenopathy. MUSCULOSKELETAL: No active arthritis. NEUROLOGIC: No focal findings and the cranial nerves 2 through 12 are grossly intact. LABORATORY DATA: See history of present illness. IMAGING: A noncontrast CT scan of the brain shows some evidence of metastasis and I did review the report at length. However, there does not appear to be significant change from studies done previously including an MRI of the brain on October 04. However, the studies are, of course, not immediately comparable. IMPRESSION: 1. Metastatic HER2 positive, ER positive breast cancer with central nervous system involvement. 2. Nausea, vomiting, and diarrhea with associated volume depletion, presumed secondary to treatment; there is some concern for a component of central nervous system etiology. RECOMMENDATIONS: We will continue intravenous volume expansion and I do expect her to improve in that regard. We are holding Xeloda and tucatinib until Thursday, at which time she will be reassessed. Thanks very much for allowing me to provide my recommendations. Job ID: [id number] [facility]
[2020-12-02] MEDS: Pantoprazole 40 MG VIAL IVP SCH (19:55)
[2020-12-02 23:52] LABS: Vancomycin, Trough 9.4 ug/mL
[2020-12-03] MEDS: Vancomycin 1 GM in Premix Bag 1 BAG IVPB SCH (01:11)
[2020-12-03 06:24] LABS: Anion Gap 10 mmol/L (10-20); BUN (Urea Nitrogen) 27 mg/dL (9.8-20.1); Calc. Creatinine Clearance 56 mL/min (70-130); Calcium 7.9 mg/dL (7.8-10.44); Carbon Dioxide 15 mmol/L (22-29); Chloride 122 mmol/L (98-107); Glucose 98 mg/dL (70-105); Potassium 3.4 mmol/L (3.5-5.1); Sodium 144 mmol/L (136-145)
[2020-12-03 06:42] LABS: Hemoglobin 15.3 g/dL (12.0-16.0); Mean Corpuscular HGB CONC 33.9 g/dL (32.0-36.0); Mean Corpuscular Hemoglobin 32.8 pg (27.0-31.0); Mean Corpuscular Volume 96.7 fL (78.0-98.0); Platelet Count 204 thou/uL (130-400); RBC Distribution Width 17.1 % (11.5-14.5); Red Blood Cell (RBC) Count 4.67 mill/uL (4.20-5.40); White Blood Cell (WBC) Count 18.6 thou/uL (4.8-10.8)
[2020-12-03 06:48] LABS: Band 40 % (5-11); Lymphocytes 6 % (21-51); MDiff Complete? YES; Metamyelocyte 1 % (0-0); Monocytes 11 % (0-10); Myelocyte 2 % (0-0); Neutrophil 38 % (42-75); Reactive Lymphocytes 2 % (0-10)
[2020-12-03] MEDS: Sucralfate 1 GM TAB PO SCH ×4 (06:53→20:34)
[2020-12-03] MEDS: Aluminum & Magnesium Hydroxide 60 ML, diphenhydrAMINE 150 MG, Lidocaine 2% Viscous Solu... SSW SCH ×4 (06:54→20:34)
[2020-12-03] MEDS ORDERED: Potassium Chloride 20 MEQ TAB PO SCH (07:30)
[2020-12-03] MEDS ORDERED: tiZANidine HCl 4 MG TAB PO PRN (08:41)
--- NOTE | 2020-12-03 08:44 | PDOC.MOPN ---
Interval History: Pt feeling better today, has an appetite and trying to eat breakfast. Still has diarrhea but N/V has improved. Has odynophagia thus far not improved with Nystatin wash. Has hiccups when swallowing which are painful. - Vital Signs Vital Signs: Vital Signs (12 hours) Temp Pulse Resp BP Pulse Ox 12/03/20 08:00 97.7 F 74 14 150/82 H 100 12/03/20 03:08 97.9 F 72 18 109/65 97 12/02/20 23:48 97.6 F 79 14 95/69 97 Weight Weight 121 lb - Physical Exam General: Alert, Oriented x3, Cooperative HEENT: EOMI Lungs: Normal air movement Cardiovascular: Regular rate Neurological: Cranial nerves 3-12 NL Psych/Mental Status: Mood NL - Labs Result Diagrams: 12/03/20 05:35 12/03/20 05:35 Lab results: Laboratory Results - last 24 hr 12/03/20 05:35: WBC 18.6 H, RBC 4.67, Hgb 15.3, Hct 45.1, MCV 96.7, MCH 32.8 H, MCHC 33.9, RDW 17.1 H, Plt Count 204, MPV 8.0, Neutrophils % (Manual) 38 L, Band Neuts % (Manual) 40 H, Lymphocytes % (Manual) 6 L, Reactive Lymphs % 2, [place] cytes % (Manual) 11 H, Metamyelocytes % (Man) 1 H, Myelocytes % 2 H, Lymphocytes # Not Reportable 12/03/20 05:35: Sodium 144, Potassium 3.4 L, Chloride 122 H, Carbon Dioxide 15 L, Anion Gap 10, BUN 27 H, Creatinine 0.98, Estimated GFR (MDRD) 59, Glucose 98, Calcium 7.9 12/02/20 22:58: Vancomycin Trough 9.4 A/P - Problem (1) Breast cancer Current Visit: No Status: Acute - Plan Plan: Cont antibiotics for now check U/A cont antiemetics, encourage increase PO intake as tolerated cont carafate, Nystatin - consider EGD if odynophagia does not improve to r/o herpes esophagitis cont IVF cont holding Xeloda + Tucatinib start Tizanidine prn hiccups
[2020-12-03] MEDS: Propranolol 40 MG TAB PO SCH ×2 (09:29→20:34)
[2020-12-03] MEDS: Sodium Bicarbonate Tab 325 MG TAB PO SCH ×2 (09:29→20:34)
[2020-12-03] MEDS: Pantoprazole 40 MG VIAL IVP SCH ×2 (09:29→20:35)
[2020-12-03] MEDS: Morphine 2 MG/ML VIAL SLOW IVP PRN ×2 (10:13→20:42)
[2020-12-03] MEDS: Cefepime 2 GM in Sodium Chloride 0.9% 100 ML IVPB SCH ×2 (11:28→23:05)
[2020-12-03] MEDS: Vancomycin HCl 750 MG in Sodium Chloride 0.9% 250 ML 250 ML IVPB SCH ×2 (11:28→23:12)
--- NOTE | 2020-12-03 14:46 | PDOC.HOSPP ---
- Subjective Subjective: Patient was seen examined at bedside. Patient stated she is tolerating some solid food tolerate better today. Still not much of an appetite. Still have but watery diarrhea. Cdiff negative. - Objective Vital Signs & Weight: Vital Signs (12 hours) Temp Pulse Resp BP Pulse Ox 12/03/20 11:55 97.5 F L 67 12 145/86 H 100 12/03/20 08:00 97.7 F 74 14 150/82 H 100 12/03/20 03:08 97.9 F 72 18 109/65 97 Weight Admit Weight 121 lb Weight 121 lb I&O: 12/02/20 12/03/20 12/04/20 06:59 06:59 06:59 Intake Total 3200 Balance 3200 Result Diagrams: 12/03/20 05:35 12/03/20 05:35 Hospitalist ROS - Medication Medications: Active Medications Generic Name Dose Route Start Last Admin Trade Name Freq PRN Reason Stop Dose Admin Al Hydroxide/Mg Hydroxide 60 0 ml 12/01/20 17:00 12/03/20 12:59 ml/ Diphenhydramine HCl 150 mg SSW 10 ml / Lidocaine HCl 60 ml/ ACHS ANTHONY Administration Nystatin 6,000,000 units Hydralazine HCl 10 mg 12/02/20 10:00 12/02/20 11:36 Hydralazine 20 Mg/Ml Vial SLOW IVP 10 mg Q4H PRN Administration Persistent BP Elevations Promethazine HCl 12.5 mg/ 50.5 mls @ 202 mls/hr 12/01/20 03:13 12/01/20 23:49 Sodium Chloride IVPB 50.5 mls Q6H PRN Administration Nausea/Vomiting Cefepime HCl 2 gm/ Sodium 100 mls @ 200 mls/hr 12/01/20 11:00 12/03/20 11:28 Chloride IVPB 100 mls 1100,2300 ANTHONY Administration Vancomycin HCl 750 mg/ Sodium 250 mls @ 250 mls/hr 12/03/20 12:00 12/03/20 11:28 Chloride IVPB 250 mls 1200,2359 ANTHONY Administration Sodium Bicarbonate 75 meq/ 1,075 mls @ 100 mls/hr 12/03/20 07:30 12/03/20 12:07 Sodium Chloride IV 1,075 mls .[id number] ANTHONY Administration Loperamide HCl 2 mg 12/01/20 15:03 12/02/20 06:21 Loperamide Hcl 2 Mg Cap PO 2 mg Q3H PRN Administration Diarrhea/Loose Stools Memantine 10 mg 12/01/20 21:00 12/03/20 09:29 Memantine Hcl 10 Mg Tab PO 10 mg BID ANTHONY Administration Morphine Sulfate 2 mg 12/01/20 03:13 12/03/20 10:13 Morphine 2 Mg/Ml Vial SLOW IVP 2 mg Q4H PRN Administration Moderate Pain (4-6) Ondansetron HCl 4 mg 12/01/20 14:59 12/02/20 11:19 Ondansetron Pf 4 Mg/2 Ml Vial IVP 4 mg Q6H PRN Administration Nausea/Vomiting Pantoprazole Sodium 40 mg 12/02/20 21:00 12/03/20 09:29 Pantoprazole 40 Mg Vial IVP 40 mg Q12HR ANTHONY Administration Propranolol HCl 40 mg 12/01/20 21:00 12/03/20 09:29 Propranolol 40 Mg Tab PO 40 mg BID ANTHONY Administration Sodium Bicarbonate 650 mg 12/03/20 09:00 12/03/20 09:29 Sodium Bicarbonate Tab 325 Mg Tab PO 650 mg BID ANTHONY Administration Sucralfate 1 gm 12/02/20 11:30 12/03/20 11:28 Sucralfate 1 Gm Tab PO 1 gm ACHS ANTHONY Administration - Exam General Appearance: NAD Eye: PERRL ENT: normocephalic atraumatic Neck: supple Heart: RRR Respiratory: CTAB, no wheezes Gastrointestinal: soft, non-tender Extremities: no cyanosis Skin: normal turgor, no lesions Hosp A/P - Plan Patient is an unfortunate 55 years old female who has significant past medical history of 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 Epigastric pain/Odynophagia - somewhat improved, tolerating some solid foods --Suspect due to gastritis/cristal esophagitis related to chemotherapy --CT abd/pel no significant findings. --cont PPI to BID, add carafate. cont Magic Mouthwash with Nystatin ssw --diet as kiah. supportive cares. Consider GI eval if no improvement SIGIFREDO - d/t volume depletion. Resolved with IVF hydration --Cr normalized. Not much appetite, cont MIVF Metabolic acidosis - d/t gi loss --cont IVF with sodium bicarb. Follow BMP Dehydration d/t chemotherapy --cont mgt as above --replace labs N/V/D --d/t chemotherapy --C Diff negative --supportive cares Leukocytosis --improving. no evidence of infection. follow cultures. cont empiric IV abx --C diff negative Hypokalemia --replaced, follow AM labs Metastatic breast Ca --oncology is following Essential HTN --resume home med, propranolol.
[2020-12-03 15:14] LABS: Bilirubin Negative (Negative); Blood, Urine Trace (Negative); Clarity Turbid (Clear); Glucose, Urine (Dipstick) 100 mg/dL (Negative); Ketone, Urine Trace mg/dL (Negative); Leukocyte Negative Leu/uL (Negative); Nitrite Negative (Negative); Protein, Urine (Dipstick) 50 mg/dL (Neg-Trace); RBC/HPF 0-3 HPF (0-3); Specific Gravity, Urine 1.033 (1.002-1.036); Squamous Epithelial 0-3 HPF (0-3); Urobilinogen Normal mg/dL (Less than 2); WBC/HPF 0-3 HPF (0-3); pH, Urine 5.5 (5.0-9.0)
[2020-12-03 15:31] LABS: Bacteria/HPF 1+ HPF (None Seen)
[2020-12-03 15:32] LABS: Urine Culture Reflex Yes Yes
[2020-12-03] MEDS: Loperamide HCl 2 MG CAP PO PRN (20:42)
[2020-12-04 06:37] LABS: #Eosinphils 0.1 thou/uL (0.0-0.7); #Lymphocytes 1.1 thou/uL (1.20-3.40); #Monocytes 1.8 thou/uL (0.11-0.59); #Neutrophils 10.8 thou/uL (1.40-6.50); %Eosinophils 0.4 % (0.0-10.0); %Lymphocytes 8.1 % (21.0-51.0); %Monocytes 13.1 % (0.0-10.0); %Neutrophils 78.4 % (42.0-75.0); Hemoglobin 13.8 g/dL (12.0-16.0); Mean Corpuscular HGB CONC 33.8 g/dL (32.0-36.0); Mean Corpuscular Hemoglobin 32.5 pg (27.0-31.0); Mean Corpuscular Volume 96.2 fL (78.0-98.0); Mean Platelet Volume 7.7 fL (7.4-10.4); Platelet Count 177 thou/uL (130-400); Red Blood Cell (RBC) Count 4.24 mill/uL (4.20-5.40); White Blood Cell (WBC) Count 13.7 thou/uL (4.8-10.8)
[2020-12-04 07:14] LABS: Anion Gap 11 mmol/L (10-20); BUN (Urea Nitrogen) 26 mg/dL (9.8-20.1); Calc. Creatinine Clearance 52 mL/min (70-130); Calcium 7.9 mg/dL (7.8-10.44); Carbon Dioxide 16 mmol/L (22-29); Chloride 125 mmol/L (98-107); Glucose 88 mg/dL (70-105); Sodium 149 mmol/L (136-145)
[2020-12-04 07:22] LABS: Potassium 2.6 mmol/L (3.5-5.1)
[2020-12-04] MEDS ORDERED: Potassium Chloride 20 MEQ TAB PO SCH (08:00)
[2020-12-04] MEDS ORDERED: Potassium Chloride 40 MEQ in Premix Bag 1 BAG IVPB SCH (08:00)
[2020-12-04] MEDS ORDERED: tiZANidine HCl 4 MG TAB PO PRN (08:23)
[2020-12-04] MEDS: Aluminum & Magnesium Hydroxide 60 ML, diphenhydrAMINE 150 MG, Lidocaine 2% Viscous Solu... SSW SCH ×4 (08:29→22:41)
[2020-12-04] MEDS: Propranolol 40 MG TAB PO SCH ×2 (08:30→21:40)
[2020-12-04] MEDS: Sodium Bicarbonate Tab 325 MG TAB PO SCH ×2 (08:30→21:40)
[2020-12-04] MEDS: Sucralfate 1 GM TAB PO SCH ×4 (08:30→21:40)
[2020-12-04] MEDS: Pantoprazole 40 MG VIAL IVP SCH ×2 (08:31→21:40)
[2020-12-04] MEDS: Loperamide HCl 2 MG CAP PO PRN (08:52)
[2020-12-04] MEDS: Morphine 2 MG/ML VIAL SLOW IVP PRN ×2 (10:24→21:41)
[2020-12-04] MEDS: Potassium Chloride 20 MEQ in Premix Bag 1 BAG IVPB SCH ×2 (10:25→14:18)
[2020-12-04 11:45] LABS: Vancomycin, Trough 27.1 ug/mL
[2020-12-04] MEDS ORDERED: Cholestyramine/Aspartame 4 gm Packet PO SCH (11:45)
[2020-12-04] MEDS: Cefepime 2 GM in Sodium Chloride 0.9% 100 ML IVPB SCH ×2 (12:53→23:49)
[2020-12-04] MEDS: Vancomycin HCl 750 MG in Sodium Chloride 0.9% 250 ML 250 ML IVPB SCH (14:30)
--- NOTE | 2020-12-04 16:09 | PDOC.MOPN ---
Interval History: hiccups improved with med, eating more. Diarrhea slightly better. - Vital Signs Vital Signs: Vital Signs (12 hours) Temp Pulse Resp BP Pulse Ox 12/04/20 11:54 97.5 F L 66 12 129/85 96 12/04/20 08:09 98.6 F 67 12 123/82 99 12/04/20 04:19 97.6 F 66 16 109/69 99 Weight Admit Weight 121 lb Weight 121 lb - Physical Exam General: Alert, Oriented x3, No acute distress HEENT: Atraumatic, PERRLA, EOMI, Mucous membr. moist/pink Lungs: Clear to auscultation Cardiovascular: Regular rate Abdomen: Normal bowel sounds Neurological: Normal speech Psych/Mental Status: Mental status NL - Labs Result Diagrams: 12/04/20 06:19 12/04/20 06:19 Lab results: Laboratory Results - last 24 hr 12/04/20 10:52: Vancomycin Trough 27.1 12/04/20 06:19: WBC 13.7 H, RBC 4.24, Hgb 13.8, Hct 40.8, MCV 96.2, MCH 32.5 H, MCHC 33.8, RDW 17.0 H, Plt Count 177, MPV 7.7, Neutrophils % 78.4 H, Lymphocytes % 8.1 L, Monocytes % 13.1 H, Eosinophils % 0.4, Basophils % 0.0, Neutrophils # 10.8 H, Lymphocytes # 1.1 L, Monocytes # 1.8 H, Eosinophils # 0.1, Basophils # 0.0 12/04/20 06:19: Sodium 149 H, Potassium 2.6 L*, Chloride 125 H, Carbon Dioxide 16 L, Anion Gap 11, BUN 26 H, Creatinine 1.05, Estimated GFR (MDRD) 54, Glucose 88, Calcium 7.9 Status: lab reviewed by me A/P - Problem (1) Diarrhea Current Visit: Yes Code(s): R19.7 - DIARRHEA, UNSPECIFIED Status: Acute (2) Esophagitis Current Visit: Yes Code(s): K20.90 - ESOPHAGITIS, UNSPECIFIED WITHOUT BLEEDING Status: Acute (3) Brain metastases Current Visit: No Code(s): C79.31 - SECONDARY MALIGNANT NEOPLASM OF BRAIN Status: Acute (4) Breast cancer Current Visit: No Status: Acute - Plan Plan: Cont antibiotics cont antiemetics, encourage increase PO intake as tolerated cont carafate, Nystatin - consider EGD if odynophagia does not improve to r/o herpes esophagitis cont IVF cont holding Xeloda + Tucatinib cont Tizanidine prn hiccups
--- NOTE | 2020-12-04 16:28 | PDOC.HOSPP ---
- Subjective Subjective: Patient was seen examined at bedside. Patient report that her diet is improving. She ate about 10% of her meal. However she still have profuse diarrhea. Her C. difficile was negative. Her diarrhea is related to chemot herapy. Multiple electrolyte abnormality, currently being repleted. - Objective Vital Signs & Weight: Vital Signs (12 hours) Temp Pulse Resp BP Pulse Ox 12/04/20 11:54 97.5 F L 66 12 129/85 96 12/04/20 08:09 98.6 F 67 12 123/82 99 Weight Admit Weight 121 lb Weight 121 lb I&O: 12/03/20 12/04/20 12/05/20 06:59 06:59 06:59 Intake Total 3200 3095 Balance 3200 3095 Result Diagrams: 12/04/20 06:19 12/04/20 06:19 Hospitalist ROS - Medication Medications: Active Medications Generic Name Dose Route Start Last Admin Trade Name Freq PRN Reason Stop Dose Admin Al Hydroxide/Mg Hydroxide 60 0 ml 12/01/20 17:00 12/04/20 14:18 ml/ Diphenhydramine HCl 150 mg SSW 60 ml / Lidocaine HCl 60 ml/ ACHS ANTHONY Administration Nystatin 6,000,000 units Hydralazine HCl 10 mg 12/02/20 10:00 12/02/20 11:36 Hydralazine 20 Mg/Ml Vial SLOW IVP 10 mg Q4H PRN Administration Persistent BP Elevations Promethazine HCl 12.5 mg/ 50.5 mls @ 202 mls/hr 12/01/20 03:13 12/01/20 23:49 Sodium Chloride IVPB 50.5 mls Q6H PRN Administration Nausea/Vomiting Cefepime HCl 2 gm/ Sodium 100 mls @ 200 mls/hr 12/01/20 11:00 12/04/20 12:53 Chloride IVPB 100 mls 1100,2300 ANTHONY Administration Sodium Bicarbonate 75 meq/ 1,075 mls @ 100 mls/hr 12/03/20 07:30 12/04/20 14:22 Sodium Chloride IV Not Given .[id number] ANTHONY Loperamide HCl 2 mg 12/01/20 15:03 12/04/20 08:52 Loperamide Hcl 2 Mg Cap PO 2 mg Q3H PRN Administration Diarrhea/Loose Stools Memantine 10 mg 12/01/20 21:00 12/04/20 08:30 Memantine Hcl 10 Mg Tab PO 10 mg BID ANTHONY Administration Morphine Sulfate 2 mg 12/01/20 03:13 12/04/20 10:24 Morphine 2 Mg/Ml Vial SLOW IVP 2 mg Q4H PRN Administration Moderate Pain (4-6) Ondansetron HCl 4 mg 12/01/20 14:59 12/02/20 11:19 Ondansetron Pf 4 Mg/2 Ml Vial IVP 4 mg Q6H PRN Administration Nausea/Vomiting Pantoprazole Sodium 40 mg 12/02/20 21:00 12/04/20 08:31 Pantoprazole 40 Mg Vial IVP 40 mg Q12HR ANTHONY Administration Propranolol HCl 40 mg 12/01/20 21:00 12/04/20 08:30 Propranolol 40 Mg Tab PO 40 mg BID ANTHONY Administration Sodium Bicarbonate 650 mg 12/03/20 09:00 12/04/20 08:30 Sodium Bicarbonate Tab 325 Mg Tab PO 650 mg BID ANTHONY Administration Sodium Chloride 10 ml 12/04/20 09:00 12/04/20 08:44 Flush - Normal Saline 10 Ml Syringe IVF 10 ml Q12HR ANTHONY Administration Sucralfate 1 gm 12/02/20 11:30 12/04/20 12:53 Sucralfate 1 Gm Tab PO 1 gm ACHS ANTHONY Administration - Exam General Appearance: NAD Eye: PERRL ENT: normocephalic atraumatic Neck: supple Heart: RRR Respiratory: CTAB, no wheezes Gastrointestinal: soft, non-tender Extremities: no cyanosis Skin: normal turgor Neurological: cranial nerve grossly intact Musculoskeletal: normal tone, normal strength Hosp A/P - Plan Patient is an unfortunate 55 years old female who has significant past medical history of 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 Epigastric pain/Odynophagia - somewhat improved, tolerating some solid foods --Suspect due to gastritis/cristal esophagitis related to chemotherapy --CT abd/pel no significant findings. --cont PPI to BID, add carafate. cont Magic Mouthwash with Nystatin ssw --diet as kiah. supportive cares. Consider GI eval if no improvement, current improvign Chemotherapy related diarrhea (CRD) --appears to be refractory to Imodium. Will scheduled it, and cont Lomotil. --if no improvement. Consider Sandostatin Sq inj --trial of bulking agent. C diff neg. Chemo agents currently on hold SIGIFREDO - d/t volume depletion. Resolved with IVF hydration --Cr normalized. Not much appetite, cont MIVF Metabolic acidosis - d/t gi loss --cont IVF with sodium bicarb. Follow BMP Dehydration d/t chemotherapy --cont mgt as above --replace labs N/V/D --d/t chemotherapy --C Diff negative --supportive cares Leukocytosis --improving. no evidence of infection. follow cultures. cont empiric IV abx --C diff negative Hypokalemia --replaced, follow AM labs Metastatic breast Ca --oncology is following Essential HTN --resume home med, propranolol.
[2020-12-04] MEDS: Diphenoxylate HCl/Atropine Tablet PO PRN (18:04)
[2020-12-04] MEDS ORDERED: Vancomycin HCl 1.25 GM in Sodium Chloride 0.9% 250 ML 250 ML IVPB SCH (21:00)
[2020-12-04] MEDS: Loperamide HCl 2 MG CAP PO SCH (21:40)
[2020-12-04] MEDS: Cholestyramine/Aspartame 4 gm Packet PO SCH (22:42)
[2020-12-04] MEDS: tiZANidine HCl 4 MG TAB PO PRN (23:49)
[2020-12-05 06:09] LABS: #Eosinphils 0.1 thou/uL (0.0-0.7); #Lymphocytes 0.9 thou/uL (1.20-3.40); #Monocytes 1.5 thou/uL (0.11-0.59); %Basophils 0.1 % (0.0-1.0); %Eosinophils 0.7 % (0.0-10.0); %Lymphocytes 6.3 % (21.0-51.0); %Neutrophils 81.9 % (42.0-75.0); Hemoglobin 13.9 g/dL (12.0-16.0); Mean Corpuscular HGB CONC 34.4 g/dL (32.0-36.0); Mean Corpuscular Hemoglobin 33.4 pg (27.0-31.0); Mean Corpuscular Volume 97.1 fL (78.0-98.0); Mean Platelet Volume 7.9 fL (7.4-10.4); Platelet Count 187 thou/uL (130-400); RBC Distribution Width 17.5 % (11.5-14.5); Red Blood Cell (RBC) Count 4.17 mill/uL (4.20-5.40); White Blood Cell (WBC) Count 13.5 thou/uL (4.8-10.8)
[2020-12-05 06:33] LABS: ALT (SGPT) 14 U/L (8-55); AST (SGOT) 18 U/L (5-34); Albumin 2.3 g/dL (3.5-5.0); Alkaline Phosphatase 47 U/L (40-110); Anion Gap 13 mmol/L (10-20); BUN (Urea Nitrogen) 23 mg/dL (9.8-20.1); Bilirubin, Total 0.6 mg/dL (0.2-1.2); Calc. Creatinine Clearance 42 mL/min (70-130); Calcium 7.9 mg/dL (7.8-10.44); Carbon Dioxide 15 mmol/L (22-29); Chloride 125 mmol/L (98-107); Globulin 1.6 g/dL (2.4-3.5); Glucose 96 mg/dL (70-105); Magnesium 2.2 mg/dL (1.6-2.6); Protein, Total 3.9 g/dL (6.0-8.3); Sodium 150 mmol/L (136-145)
[2020-12-05 06:44] LABS: Potassium 2.7 mmol/L (3.5-5.1)
[2020-12-05] MEDS ORDERED: Electrolyte Replacement Protocol 1 EACH FS SCH (07:15)
[2020-12-05] MEDS ORDERED: Potassium Chloride 40 MEQ in Sodium Chloride 0.9% 250 ML 250 ML IVPB SCH (08:30)
[2020-12-05] MEDS: Aluminum & Magnesium Hydroxide 60 ML, diphenhydrAMINE 150 MG, Lidocaine 2% Viscous Solu... SSW SCH ×4 (08:53→21:00)
[2020-12-05] MEDS: Sucralfate 1 GM TAB PO SCH ×4 (08:53→21:00)
[2020-12-05] MEDS: Loperamide HCl 2 MG CAP PO SCH ×3 (09:00→21:00)
[2020-12-05] MEDS: Propranolol 40 MG TAB PO SCH ×2 (09:00→20:59)
[2020-12-05] MEDS: Sodium Bicarbonate Tab 325 MG TAB PO SCH ×2 (09:00→21:00)
[2020-12-05] MEDS: Pantoprazole 40 MG VIAL IVP SCH ×2 (09:01→21:02)
[2020-12-05] MEDS: Sodium Bicarbonate 75 MEQ in D5 1/2 NS w/20 mEq KCL 1,000 ML IV SCH ×2 (09:57→17:17)
[2020-12-05] MEDS: Cholestyramine/Aspartame 4 gm Packet PO SCH ×2 (11:19→22:44)
[2020-12-05] MEDS: Cefepime 2 GM in Sodium Chloride 0.9% 100 ML IVPB SCH (11:22)
--- NOTE | 2020-12-05 15:21 | PDOC.MOPN ---
Interval History: minimal improvement, continue diarrhea and stomach pain when eating. - Vital Signs Vital Signs: Vital Signs (12 hours) Temp Pulse Resp BP Pulse Ox 12/05/20 15:16 97.7 F 84 16 125/83 100 12/05/20 10:36 97.4 F L 61 16 120/86 100 12/05/20 08:00 100 12/05/20 07:29 96.4 F L 64 16 112/75 100 12/05/20 03:41 97.6 F 60 16 106/68 100 Weight Admit Weight 121 lb Weight 121 lb - Physical Exam General: No acute distress HEENT: Atraumatic Lungs: Clear to auscultation Cardiovascular: Regular rate Abdomen: Normal bowel sounds Neurological: Normal speech - Labs Result Diagrams: 12/05/20 05:27 12/05/20 05:27 Lab results: Laboratory Results - last 24 hr 12/05/20 05:27: WBC 13.5 H, RBC 4.17 L, Hgb 13.9, Hct 40.5, MCV 97.1, MCH 33.4 H, MCHC 34.4, RDW 17.5 H, Plt Count 187, MPV 7.9, Neutrophils % 81.9 H, Lymphocytes % 6.3 L, Monocytes % 11.0 H, Eosinophils % 0.7, Basophils % 0.1, Neutrophils # 11.0 H, Lymphocytes # 0.9 L, Monocytes # 1.5 H, Eosinophils # 0.1, Basophils # 0.0 12/05/20 05:27: Sodium 150 H, Potassium 2.7 L*, Chloride 125 H, Carbon Dioxide 15 L, Anion Gap 13, BUN 23 H, Creatinine 1.29 H, Estimated GFR (MDRD) 43, Glucose 96, Calcium 7.9, Magnesium 2.2, Total Bilirubin 0.6, AST 18, ALT 14, Alkaline Phosphatase 47, Serum Total Protein 3.9 L, Albumin 2.3 L, Globulin 1.6 L, Albumin/Globulin Ratio 1.4 Status: lab reviewed by me A/P - Problem (1) Diarrhea Current Visit: Yes Code(s): R19.7 - DIARRHEA, UNSPECIFIED Status: Acute (2) Esophagitis Current Visit: Yes Code(s): K20.90 - ESOPHAGITIS, UNSPECIFIED WITHOUT BLEEDING Status: Acute (3) Brain metastases Current Visit: No Code(s): C79.31 - SECONDARY MALIGNANT NEOPLASM OF BRAIN Status: Acute (4) Breast cancer Current Visit: No Status: Acute - Plan Plan: Cont antibiotics cont antiemetics, encourage increase PO intake as tolerated cont carafate, Nystatin Consult GI for opinion and recs cont holding Xeloda + Tucatinib cont Tizanidine prn hiccups
[2020-12-05] MEDS: tiZANidine HCl 4 MG TAB PO PRN (16:18)
--- NOTE | 2020-12-05 16:43 | PDOC.HOSPP ---
- Subjective Subjective: Patient was seen examined at bedside. She is doing much better today clinically. She has been ambulating around the [place]. Her potassium dropped down to 2.7 as well as hypernatremia. She still have significant diarrhea. Her appetite has improved. She ate more than 10% of her portion. She still have some dysphagia, however tolerate solid food much better than she was. - Objective Vital Signs & Weight: Vital Signs (12 hours) Temp Pulse Resp BP Pulse Ox 12/05/20 15:16 97.7 F 84 16 125/83 100 12/05/20 10:36 97.4 F L 61 16 120/86 100 12/05/20 08:00 100 12/05/20 07:29 96.4 F L 64 16 112/75 100 Weight Admit Weight 121 lb Weight 121 lb I&O: 12/04/20 12/05/20 12/06/20 06:59 06:59 06:59 Intake Total 3095 2460 Balance 3095 2460 Result Diagrams: 12/05/20 05:27 12/05/20 05:27 Hospitalist ROS - Medication Medications: Active Medications Generic Name Dose Route Start Last Admin Trade Name Freq PRN Reason Stop Dose Admin Cholestyramine Resin 4 gm 12/04/20 22:00 12/05/20 11:19 Cholestyramine/Aspartame 4 Gm Packet PO 4 gm 1000,2200 ANTHONY Administration Al Hydroxide/Mg Hydroxide 60 0 ml 12/01/20 17:00 12/05/20 16:17 ml/ Diphenhydramine HCl 150 mg SSW 60 ml / Lidocaine HCl 60 ml/ ACHS ANTHONY Administration Nystatin 6,000,000 units Diphenoxylate HCl/Atropine 1 tab 12/04/20 16:28 12/04/20 18:04 Diphenoxylate Hcl/Atropine Tablet PO 1 tab QIDPRN PRN Administration Diarrhea/Loose Stools Hydralazine HCl 10 mg 12/02/20 10:00 12/02/20 11:36 Hydralazine 20 Mg/Ml Vial SLOW IVP 10 mg Q4H PRN Administration Persistent BP Elevations Promethazine HCl 12.5 mg/ 50.5 mls @ 202 mls/hr 12/01/20 03:13 12/01/20 23:49 Sodium Chloride IVPB 50.5 mls Q6H PRN Administration Nausea/Vomiting Cefepime HCl 2 gm/ Sodium 100 mls @ 200 mls/hr 12/01/20 11:00 12/05/20 11:22 Chloride IVPB 100 mls 1100,2300 ANTHONY Administration Vancomycin HCl 1.25 gm/ Sodium 250 mls @ 166.667 mls/hr 12/04/20 21:00 12/04/20 21:40 Chloride IVPB 250 mls 2100 ANTHONY Administration Sodium Bicarbonate 75 meq/ 1,075 mls @ 100 mls/hr 12/05/20 07:30 12/05/20 09:57 Potassium Chloride/Dextrose/ IV 1,075 mls Sod Cl .[id number] ANTHONY Administration Loperamide HCl 2 mg 12/01/20 15:03 12/04/20 08:52 Loperamide Hcl 2 Mg Cap PO 2 mg Q3H PRN Administration Diarrhea/Loose Stools Loperamide HCl 4 mg 12/04/20 21:00 12/05/20 14:48 Loperamide Hcl 2 Mg Cap PO 4 mg TID ANTHONY Administration Memantine 10 mg 12/01/20 21:00 12/05/20 09:00 Memantine Hcl 10 Mg Tab PO 10 mg BID ANTHONY Administration Morphine Sulfate 2 mg 12/01/20 03:13 12/04/20 21:41 Morphine 2 Mg/Ml Vial SLOW IVP 2 mg Q4H PRN Administration Moderate Pain (4-6) Ondansetron HCl 4 mg 12/01/20 14:59 12/02/20 11:19 Ondansetron Pf 4 Mg/2 Ml Vial IVP 4 mg Q6H PRN Administration Nausea/Vomiting Pantoprazole Sodium 40 mg 12/02/20 21:00 12/05/20 09:01 Pantoprazole 40 Mg Vial IVP 40 mg Q12HR ANTHONY Administration Propranolol HCl 40 mg 12/01/20 21:00 12/05/20 09:00 Propranolol 40 Mg Tab PO Not Given BID ANTHONY Sodium Bicarbonate 650 mg 12/03/20 09:00 12/05/20 09:00 Sodium Bicarbonate Tab 325 Mg Tab PO 650 mg BID ANTHONY Administration Sodium Chloride 10 ml 12/04/20 09:00 12/05/20 09:01 Flush - Normal Saline 10 Ml Syringe IVF 10 ml Q12HR ANTHONY Administration Sucralfate 1 gm 12/02/20 11:30 12/05/20 16:17 Sucralfate 1 Gm Tab PO 1 gm ACHS ANTHONY Administration Tizanidine HCl 4 mg 12/04/20 11:31 12/05/20 16:18 Tizanidine Hcl 4 Mg Tab PO 4 mg Q8H PRN Administration Hiccups - Exam General Appearance: NAD Eye: PERRL ENT: normocephalic atraumatic Neck: supple Heart: RRR, no murmur Respiratory: CTAB, rhonchi Gastrointestinal: soft, non-tender Extremities: no cyanosis Skin: normal turgor Neurological: cranial nerve grossly intact Musculoskeletal: normal tone, normal strength Hosp A/P - Plan Patient is an unfortunate 55 years old female who has significant past medical history of 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 Epigastric pain/Odynophagia - somewhat improved, tolerating some solid foods better today --Suspect due to gastritis/cristal esophagitis related to chemotherapy --CT abd/pel no significant findings. --cont PPI to BID, add carafate. cont Magic Mouthwash with Nystatin ssw --diet as kiah. supportive cares. GI was consulted by oncology Chemotherapy related diarrhea (CRD) --appears to be refractory to Imodium. Will scheduled it, and cont Lomotil. --if no improvement. Consider Sandostatin Sq inj --trial of bulking agent. C diff neg. Chemo agents currently on hold --GI consulted for further recommendation SIGIFREDO - d/t volume depletion. Resolved with IVF hydration --Cr normalized. Not much appetite, cont MIVF Metabolic acidosis - d/t gi loss --cont IVF with sodium bicarb. Follow BMP Hypovolemic Hypernatremia due GI losses --Adjust IVF hydration, follow BMP Dehydration d/t chemotherapy --cont mgt as above --replace labs N/V/D --d/t chemotherapy --C Diff negative --supportive cares Leukocytosis --improving. no evidence of infection. follow cultures. --C diff negative --will d/c IV abx as BCx no growth Hypokalemia --replaced, follow AM labs Metastatic breast Ca --oncology is following Essential HTN --resume home med, propranolol.
[2020-12-05] MEDS ORDERED: Fluconazole 100 MG TAB PO SCH (19:45)
[2020-12-05] MEDS: Morphine 2 MG/ML VIAL SLOW IVP PRN (21:01)
--- NOTE | 2020-12-05 21:05 | CON ---
DATE OF CONSULTATION: 12/05/2020 CHIEF COMPLAINT: Diarrhea, epigastric pain, and painful swallowing. HISTORY OF PRESENT ILLNESS: Ms. Trinh is a 55-year-old woman with breast cancer metastatic to the brain, which was diagnosed in 2019. Her most recent chemo regimen was with Xeloda and Tucatinib, which she started around the end of September. A couple of weeks after starting these medications, she started developing diarrhea. These symptoms worsened and she became very dehydrated and was having a bowel movement about every hour with nonbloody brown liquidy stool. She also developed painful swallowing with the pain located in her substernal region as the food would be going down. She did develop some vomiting on Thursday along with the symptoms such that she came on in the emergency room for further care and she was admitted. She has been given IV fluids and antidiarrheal medications and pantoprazole and Carafate. She has had gradual improvement in the odynophagia with nystatin swish and swallow and some improvement in her diarrhea as well. She is still having liquidy bowel movement every time she urinates. She has had hiccups, which she feels like have improved with tizanidine. She has had no fever with this. She has been able to get up and ambulate. PAST MEDICAL HISTORY: Metastatic breast cancer. She has not had a prior colonoscopy or endoscopy. PAST SURGICAL HISTORY: 1. Hysterectomy. 2. Lumpectomy. FAMILY HISTORY: Negative for GI malignancy. SOCIAL HISTORY: No alcohol, tobacco, or drugs. ALLERGIES: CODEINE, PENICILLIN. INPATIENT MEDICATIONS: Currently include; 1. Cholestyramine. 2. Nystatin mouthwash with lidocaine. 3. Lomotil as needed. 4. Loperamide scheduled 4 mg three times daily. 5. Namenda. 6. Pantoprazole 40 mg IV q.12 hours. 7. Propranolol. 8. Tizanidine. 9. Sucralfate. REVIEW OF SYSTEMS: Negative x10 systems reviewed except as stated in history of present illness. PHYSICAL EXAMINATION: VITAL SIGNS: Temperature 97.7, pulse 84, blood pressure 125/83. GENERAL: She is in no acute distress. Alert and oriented x3. HEENT: Eyes have no scleral icterus. Oropharynx has dry mucous membranes, but no ulcerations or plaques. LUNGS: Clear to auscultation bilaterally. HEART: Regular rate and rhythm without murmur. ABDOMEN: Soft, nontender, and nondistended. Bowel sounds are present. EXTREMITIES: No lower extremity edema. NEUROLOGIC: Cranial nerves are grossly intact. LABORATORY DATA: White blood cell count 13.5, hemoglobin 13.9, platelets 187. Sodium 150, potassium 2.7, creatinine 1.29, bilirubin 0.6, AST 18, ALT 14, alkaline phosphatase 47, albumin 2.3. IMPRESSION: 1. Breast cancer metastatic to the brain. 2. Diarrhea, which has been persistent over the last month, which is likely related to chemotherapy. Her C diff was negative. We will check additional stool studies for culture and ova and parasites. So far, she has been off the chemo regimen for 10 days, the diarrhea has not yet resolved. She is having improvement with fluids and Imodium, but very slow improvement. 3. Odynophagia. Again, this is improved somewhat. No ulcerations in her mouth or plaques in her tongue. She has been on nystatin swish and swallow. Consideration at this point primarily would be fungal esophagitis or viral esophagitis. 4. Dehydration and electrolyte abnormalities secondary to diarrhea. 5. Protein-calorie malnutrition. She has thickening of the bowel wall, which could be related to the hypoalbuminemia along with diarrheal process. RECOMMENDATIONS: 1. Continue supportive care with fluids and antidiarrheal agents with Imodium and Lomotil. Replace the electrolytes as needed. She is on Questran and propranolol as well. 2. Proton pump inhibitor and Carafate. 3. Start fluconazole 200 mg today and then 100 mg daily. 4. If she fails to improve over the next couple of days, an upper and lower endoscopy can be performed to assess for CMV or herpes esophagitis or colitis. 5. Check additional stool studies to include culture and ova and parasite and lactoferrin. Job ID: [id number]
[2020-12-06] MEDS: Sodium Bicarbonate 75 MEQ in D5 1/2 NS w/20 mEq KCL 1,000 ML IV SCH ×2 (01:30→16:10)
[2020-12-06] MEDS: Aluminum & Magnesium Hydroxide 60 ML, diphenhydrAMINE 150 MG, Lidocaine 2% Viscous Solu... SSW SCH ×4 (06:14→21:35)
[2020-12-06] MEDS: Sucralfate 1 GM TAB PO SCH ×4 (06:15→21:35)
[2020-12-06] MEDS: tiZANidine HCl 4 MG TAB PO PRN ×2 (06:22→21:35)
[2020-12-06] MEDS: Diphenoxylate HCl/Atropine Tablet PO PRN ×2 (06:24→17:57)
[2020-12-06 06:34] LABS: Hemoglobin 12.3 g/dL (12.0-16.0); Mean Corpuscular HGB CONC 34.8 g/dL (32.0-36.0); Mean Corpuscular Volume 94.7 fL (78.0-98.0); Mean Platelet Volume 7.9 fL (7.4-10.4); Platelet Count 190 thou/uL (130-400); RBC Distribution Width 17.2 % (11.5-14.5); Red Blood Cell (RBC) Count 3.73 mill/uL (4.20-5.40); White Blood Cell (WBC) Count 12.6 thou/uL (4.8-10.8)
[2020-12-06 06:54] LABS: Band 32 % (5-11); Lymphocytes 4 % (21-51); MDiff Complete? YES; Monocytes 1 % (0-10); Myelocyte 1 % (0-0); Neutrophil 62 % (42-75)
[2020-12-06 06:57] LABS: Anion Gap 9 mmol/L (10-20); BUN (Urea Nitrogen) 18 mg/dL (9.8-20.1); Calc. Creatinine Clearance 48 mL/min (70-130); Calcium 7.4 mg/dL (7.8-10.44); Carbon Dioxide 20 mmol/L (22-29); Chloride 120 mmol/L (98-107); Glucose 138 mg/dL (70-105); Sodium 147 mmol/L (136-145)
[2020-12-06 07:00] LABS: Potassium 2.4 mmol/L (3.5-5.1)
[2020-12-06] MEDS ORDERED: Potassium Chloride 20 MEQ TAB PO SCH (07:30)
[2020-12-06] MEDS ORDERED: Potassium Chloride 40 MEQ in Sodium Chloride 0.9% 250 ML 250 ML IVPB SCH (07:30)
--- NOTE | 2020-12-06 08:04 | PDOC.FMACP ---
Advance Care Planning - Problem (1) Palliative care encounter Status: Acute Code(s): Z51.5 - ENCOUNTER FOR PALLIATIVE CARE (2) Brain metastases Status: Chronic Code(s): C79.31 - SECONDARY MALIGNANT NEOPLASM OF BRAIN (3) Breast cancer Status: Chronic - Note Participants: patient, palliative care Summary: Advanced Care Planning was discussed. The diagnosis, prognosis and goals of care were discussed. Appropriate forms and documentation to accomplish the goals of care were discussed. All questions were answered. Patient states they are addressing with [facility], revisited that if she desires we could return to address MPOA and Directives. Information provided to patient. Time Spent (mins): 15
[2020-12-06] MEDS: Propranolol 40 MG TAB PO SCH ×2 (08:51→21:36)
[2020-12-06] MEDS: Fluconazole 100 MG TAB PO SCH (08:52)
[2020-12-06] MEDS: Loperamide HCl 2 MG CAP PO SCH ×3 (08:52→21:35)
[2020-12-06] MEDS: Sodium Bicarbonate Tab 325 MG TAB PO SCH ×2 (08:53→21:35)
[2020-12-06] MEDS: Pantoprazole 40 MG VIAL IVP SCH ×2 (08:54→21:36)
[2020-12-06] MEDS: Potassium Chloride 20 MEQ TAB PO SCH ×3 (09:03→17:57)
[2020-12-06] MEDS ORDERED: Magnesium 2 GM/50 ML 2 GM in Premix Bag 1 BAG IVPB SCH (09:15)
[2020-12-06] MEDS: Cholestyramine/Aspartame 4 gm Packet PO SCH ×2 (09:34→23:01)
[2020-12-06] MEDS: BIOTENE MOUTH SPRAY 44.3 ML PO SCH ×4 (09:35→21:36)
--- NOTE | 2020-12-06 10:46 | PDOC.MOPN ---
Interval History: She is feeling better today, eating an omelet this morning. Diarrhea very minimally improved, odynophagia slowly improving. Hiccups are very well controlled. She is having dry mouth. - Vital Signs Vital Signs: Vital Signs (12 hours) Temp Pulse Resp BP Pulse Ox 12/06/20 07:12 97.7 F 71 18 103/71 97 12/06/20 03:16 97.9 F 71 16 115/69 99 12/05/20 23:40 97.7 F 75 16 128/82 99 Weight Admit Weight 121 lb Weight 121 lb - Physical Exam General: Alert, Oriented x3, Cooperative Lungs: Normal air movement Cardiovascular: Regular rate Neurological: Cranial nerves 3-12 NL - Labs Result Diagrams: 12/06/20 06:10 12/06/20 06:10 Lab results: Laboratory Results - last 24 hr 12/06/20 06:10: WBC 12.6 H, RBC 3.73 L, Hgb 12.3, Hct 35.3 L, MCV 94.7, MCH 33.0 H, MCHC 34.8, RDW 17.2 H, Plt Count 190, MPV 7.9, Neutrophils % (Manual) 62, Band Neuts % (Manual) 32 H, Lymphocytes % (Manual) 4 L, Monocytes % (Manual) 1, Myelocytes % 1 H, Lymphocytes # Not Reportable 12/06/20 06:10: Sodium 147 H, Potassium 2.4 L*, Chloride 120 H, Carbon Dioxide 2 0 L, Anion Gap 9 L, BUN 18, Creatinine 1.13 H, Estimated GFR (MDRD) 50, Glucose 138 H, Calcium 7.4 L, Magnesium 2.0 A/P - Problem (1) Breast cancer Current Visit: No Status: Acute - Plan Plan: Cont supportive care Cont tizanidine Start biotene consider EGD/colonoscopy if no improvement in next few days
[2020-12-06 12:22] LABS: Anion Gap 9 mmol/L (10-20); BUN (Urea Nitrogen) 17 mg/dL (9.8-20.1); Calc. Creatinine Clearance 45 mL/min (70-130); Calcium 7.7 mg/dL (7.8-10.44); Carbon Dioxide 22 mmol/L (22-29); Chloride 118 mmol/L (98-107); Glucose 115 mg/dL (70-105); Sodium 146 mmol/L (136-145)
[2020-12-06 12:45] LABS: Potassium 2.7 mmol/L (3.5-5.1)
--- NOTE | 2020-12-06 13:02 | PRG ---
DATE OF SERVICE: 12/06/2020 SUBJECTIVE: Ms. Trinh says she is feeling quite a bit better today than yesterday. She has had one loose bowel movement so far. She was able to urinate without having to pass stool. She is not having any abdominal pain or nausea. Her odynophagia has also moderately improved, though it does persist. She was able to eat some solid food for breakfast and lunch today including an omelet and some tortilla soup. OBJECTIVE: VITAL SIGNS: Temperature 97.6, pulse 71, blood pressure 98/72, 97% oxygen saturation on room air. GENERAL: No acute distress. HEART: Regular rate and rhythm.. LUNGS: Clear to auscultation bilaterally. ABDOMEN: Nondistended. Bowel sounds present. Soft and nontender to palpation. EXTREMITIES: No peripheral edema. LABORATORY STUDIES: Sodium 146, potassium pending, BUN 17, creatinine 1.21, glucose 115. WBC 12.6, hemoglobin 12.3, platelets 190. Blood and urine cultures show no growth. Clostridium difficile antigen and toxin are negative. ASSESSMENT AND PLAN: 1. Severe diarrhea, persistent over the past month, some improvement today. Agree with Dr. Grullon. This is likely related to recent chemotherapy. Clostridium difficile was negative. Continue with supportive care, Imodium, Questran. 2. Odynophagia. Some continued marginal improvement today. She has been on nystatin swish and swallow and oral fluconazole was added yesterday as empiric treatment for possible Christine esophagitis. We will go ahead and plan for 14-day course of oral fluconazole. 3. Recommend continued current treatment and observation of symptoms. If she has continued improvement, we may be able to avoid having to do any diagnostic endoscopy. But if she is not doing much better over the next two or three days, we could consider diagnostic EGD and colonoscopy, evaluate for viral esophagitis, etc. GI can continue to follow along. Please call back anytime with questions or concerns. Job ID: [id number]
--- NOTE | 2020-12-06 16:38 | PDOC.HOSPP ---
- Subjective Subjective: She is doing much better today, she ate more than yesterday and is tolerated it well. She has been up and walked around with PT. No diarrhea this morning. Finally resolved. much better spirit today - Objective Vital Signs & Weight: Vital Signs (12 hours) Temp Pulse Resp BP Pulse Ox 12/06/20 11:15 97.6 F 71 18 98/72 97 12/06/20 08:40 97 12/06/20 07:12 97.7 F 71 18 103/71 97 Weight Admit Weight 121 lb Weight 121 lb I&O: 12/05/20 12/06/20 12/07/20 06:59 06:59 06:59 Intake Total 2460 3750 Balance 2460 3750 Result Diagrams: 12/06/20 06:10 12/06/20 11:49 Radiology Reviewed by me: Yes EKG Reviewed by me: Yes Hospitalist ROS - Medication Medications: Active Medications Generic Name Dose Route Start Last Admin Trade Name Freq PRN Reason Stop Dose Admin Cholestyramine Resin 4 gm 12/04/20 22:00 12/06/20 09:34 Cholestyramine/Aspartame 4 Gm Packet PO 4 gm 1000,2200 ANTHONY Administration Al Hydroxide/Mg Hydroxide 60 0 ml 12/01/20 17:00 12/06/20 16:11 ml/ Diphenhydramine HCl 150 mg SSW 60 ml / Lidocaine HCl 60 ml/ ACHS ANTHONY Administration Nystatin 6,000,000 units Diphenoxylate HCl/Atropine 1 tab 12/04/20 16:28 12/06/20 06:24 Diphenoxylate Hcl/Atropine Tablet PO 1 tab QIDPRN PRN Administration Diarrhea/Loose Stools Fluconazole 100 mg 12/06/20 09:00 12/06/20 08:52 Fluconazole 100 Mg Tab PO 100 mg DAILY ANTHONY Administration Hydralazine HCl 10 mg 12/02/20 10:00 12/02/20 11:36 Hydralazine 20 Mg/Ml Vial SLOW IVP 10 mg Q4H PRN Administration Persistent BP Elevations Promethazine HCl 12.5 mg/ 50.5 mls @ 202 mls/hr 12/01/20 03:13 12/01/20 23:49 Sodium Chloride IVPB 50.5 mls Q6H PRN Administration Nausea/Vomiting Sodium Bicarbonate 75 meq/ 1,075 mls @ 100 mls/hr 12/05/20 07:30 12/06/20 16:10 Potassium Chloride/Dextrose/ IV 1,075 mls Sod Cl .[id number] ANTHONY Administration Loperamide HCl 2 mg 12/01/20 15:03 12/04/20 08:52 Loperamide Hcl 2 Mg Cap PO 2 mg Q3H PRN Administration Diarrhea/Loose Stools Loperamide HCl 4 mg 12/04/20 21:00 12/06/20 14:42 Loperamide Hcl 2 Mg Cap PO 4 mg TID ANTHONY Administration Memantine 10 mg 12/01/20 21:00 12/06/20 08:51 Memantine Hcl 10 Mg Tab PO 10 mg BID ANTHONY Administration Miscellaneous Medication 0 ml 12/06/20 09:00 12/06/20 16:13 Biotene Mouth [place] 44.3 Ml PO 1 spr Q4HR ANTHONY Administration Morphine Sulfate 2 mg 12/01/20 03:13 12/05/20 21:01 Morphine 2 Mg/Ml Vial SLOW IVP 2 mg Q4H PRN Administration Moderate Pain (4-6) Pantoprazole Sodium 40 mg 12/02/20 21:00 12/06/20 08:54 Pantoprazole 40 Mg Vial IVP 40 mg Q12HR ANTHONY Administration Potassium Chloride 20 meq 12/06/20 08:00 12/06/20 09:03 Potassium Chloride 20 Meq Tab PO 20 meq QAM-WM ANTHONY Administration Potassium Chloride 40 meq 12/06/20 14:30 12/06/20 14:43 Potassium Chloride 20 Meq Tab PO 12/06/20 18:31 40 meq Q4H ANTHONY Administration Propranolol HCl 40 mg 12/01/20 21:00 12/06/20 08:51 Propranolol 40 Mg Tab PO Not Given BID ANTHONY Sodium Bicarbonate 650 mg 12/03/20 09:00 12/06/20 08:53 Sodium Bicarbonate Tab 325 Mg Tab PO 650 mg BID ANTHONY Administration Sodium Chloride 10 ml 12/04/20 09:00 12/06/20 09:01 Flush - Normal Saline 10 Ml Syringe IVF 10 ml Q12HR ANTHONY Administration Sucralfate 1 gm 12/02/20 11:30 12/06/20 16:11 Sucralfate 1 Gm Tab PO 1 gm ACHS ANTHONY Administration Tizanidine HCl 4 mg 12/04/20 11:31 12/06/20 06:22 Tizanidine Hcl 4 Mg Tab PO 4 mg Q8H PRN Administration Hiccups - Exam General Appearance: NAD Eye: PERRL ENT: normocephalic atraumatic Neck: supple Heart: RRR Respiratory: CTAB Gastrointestinal: soft Extremities: no cyanosis Skin: normal turgor Neurological: cranial nerve grossly intact Musculoskeletal: normal tone Psychiatric: normal affect, normal behavior, A&O x 3 Hosp A/P - Plan Patient is an unfortunate 55 years old female who has significant past medical history of 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 Epigastric pain/Odynophagia - somewhat improved, tolerating some solid foods better today --Suspect due to gastritis/cristal esophagitis related to chemotherapy --CT abd/pel no significant findings. --cont PPI to BID, add carafate. cont Magic Mouthwash with Nystatin ssw. Diflucan added on 12/05 by GI x 14 days --diet as kiah. supportive cares. Appreciate GI input Chemotherapy related diarrhea (CRD) --slowed down significantly. Cont scheduled Imodium/Questran. Prn Lomotil --GI is following. C diff negative SIGIFREDO - d/t volume depletion. Resolved with IVF hydration --Cr normalized. Not much appetite, cont MIVF Metabolic acidosis - d/t gi loss --cont IVF with sodium bicarb. Follow BMP Hypovolemic Hypernatremia due GI losses --Adjust IVF hydration, follow BMP Dehydration d/t chemotherapy --cont mgt as above --replace lytes N/V/D --d/t chemotherapy --C Diff negative --supportive cares Leukocytosis --improving. no evidence of infection. follow cultures. --C diff negative --will d/c IV abx as BCx no growth Hypokalemia --replaced, follow AM labs Metastatic breast Ca --oncology is following, oral chemo agent currently on hold Essential HTN --hold propranolol, d/t BP on the low side
[2020-12-07] MEDS: BIOTENE MOUTH SPRAY 44.3 ML PO SCH ×6 (02:39→20:29)
[2020-12-07] MEDS: Sodium Bicarbonate 75 MEQ in D5 1/2 NS w/20 mEq KCL 1,000 ML IV SCH ×2 (04:45→12:14)
[2020-12-07] MEDS: Sucralfate 1 GM TAB PO SCH ×4 (06:38→20:27)
[2020-12-07] MEDS: Aluminum & Magnesium Hydroxide 60 ML, diphenhydrAMINE 150 MG, Lidocaine 2% Viscous Solu... SSW SCH ×4 (06:38→20:24)
[2020-12-07 07:11] LABS: #Eosinphils 0.2 thou/uL (0.0-0.7); #Lymphocytes 1.2 thou/uL (1.20-3.40); #Monocytes 1.2 thou/uL (0.11-0.59); #Neutrophils 9.7 thou/uL (1.40-6.50); %Basophils 0.1 % (0.0-1.0); %Eosinophils 1.7 % (0.0-10.0); %Lymphocytes 9.6 % (21.0-51.0); %Monocytes 9.5 % (0.0-10.0); %Neutrophils 79.2 % (42.0-75.0); Hemoglobin 11.8 g/dL (12.0-16.0); Mean Corpuscular HGB CONC 35.5 g/dL (32.0-36.0); Mean Corpuscular Hemoglobin 33.8 pg (27.0-31.0); Mean Corpuscular Volume 95.2 fL (78.0-98.0); Platelet Count 190 thou/uL (130-400); RBC Distribution Width 17.6 % (11.5-14.5); Red Blood Cell (RBC) Count 3.49 mill/uL (4.20-5.40); White Blood Cell (WBC) Count 12.3 thou/uL (4.8-10.8)
[2020-12-07 07:13] LABS: Anion Gap 7 mmol/L (10-20); BUN (Urea Nitrogen) 11 mg/dL (9.8-20.1); Calc. Creatinine Clearance 58 mL/min (70-130); Calcium 7.3 mg/dL (7.8-10.44); Carbon Dioxide 21 mmol/L (22-29); Chloride 120 mmol/L (98-107); Glucose 117 mg/dL (70-105); Magnesium 2.1 mg/dL (1.6-2.6); Potassium 3.4 mmol/L (3.5-5.1); Sodium 145 mmol/L (136-145)
[2020-12-07] MEDS ORDERED: Potassium Chloride 20 MEQ TAB PO SCH (07:45)
[2020-12-07] MEDS: Propranolol 40 MG TAB PO SCH ×2 (09:24→20:28)
[2020-12-07] MEDS: Fluconazole 100 MG TAB PO SCH (09:27)
[2020-12-07] MEDS: Sodium Bicarbonate Tab 325 MG TAB PO SCH ×2 (09:27→20:26)
[2020-12-07] MEDS: Pantoprazole 40 MG VIAL IVP SCH ×2 (09:27→20:29)
[2020-12-07] MEDS: Loperamide HCl 2 MG CAP PO SCH ×3 (09:27→20:25)
[2020-12-07] MEDS: Potassium Chloride 20 MEQ TAB PO SCH (09:27)
[2020-12-07] MEDS: Cholestyramine/Aspartame 4 gm Packet PO SCH ×2 (09:28→20:38)
--- NOTE | 2020-12-07 12:44 | PRG ---
DATE OF SERVICE: 12/07/2020 SUBJECTIVE: Ms. Trinh feels even better today than yesterday. She has actually not had any bowel movements so far. This morning, she has been able to urinate without having to pass a bowel movement. She has been able to tolerate her diet. She still has some sensation of food going down in the chest, but it is not really painful sensation anymore. OBJECTIVE: VITAL SIGNS: Temperature 97.8, pulse 107, blood pressure 128/87, 99% oxygen saturation on room air. GENERAL: No acute distress, lying in bed comfortably. HEART: Regular rate and rhythm. LUNGS: Clear to auscultation bilaterally. ABDOMEN: Bowel sounds are active. Soft. Minimal tenderness to palpation in the epigastrium, but no guarding or rebound tenderness. EXTREMITIES: No peripheral edema. LABORATORY STUDIES: WBC 12.3, hemoglobin 11.8, platelets 190. Sodium 145, potassium 3.4, BUN 11, creatinine 0.94. ASSESSMENT/PLAN: 1. Diarrhea, severe over the past month, improving the past few days here. This is likely related to recent chemotherapy. Clostridium difficile assay was negative. Continuing with supportive care, Imodium, and Questran. 2. Odynophagia. She has had continued improvement after the addition of fluconazole a couple of days ago. This is empiric treatment for possible Christine esophagitis. Go ahead and plan for completion of a 14-day course of oral fluconazole. 3. Continue with current treatment as she has had such symptomatic improvement. Unless she has worsening of symptoms going forward, I think we will be able to avoid having to do any diagnostic endoscopy. Job ID: [id number]
--- NOTE | 2020-12-07 14:49 | PDOC.MOPN ---
Interval History: improved today, eating more. Only 1 diarrhea stool. stomach pains better - Vital Signs Vital Signs: Vital Signs (12 hours) Temp Pulse Resp BP Pulse Ox 12/07/20 11:53 97.8 F 107 H 18 128/87 99 12/07/20 07:45 97.9 F 120 H 18 114/76 100 12/07/20 04:23 97.9 F 94 19 114/74 99 Weight Admit Weight 121 lb Weight 121 lb - Physical Exam General: Alert, Oriented x3, No acute distress HEENT: Atraumatic, PERRLA, EOMI, Mucous membr. moist/pink Lungs: Clear to auscultation Cardiovascular: Regular rate Abdomen: Normal bowel sounds Neurological: Normal speech Psych/Mental Status: Mental status NL - Labs Result Diagrams: 12/07/20 06:30 12/07/20 06:30 Lab results: Laboratory Results - last 24 hr 12/07/20 06:30: WBC 12.3 H, RBC 3.49 L, Hgb 11.8 L, Hct 33.2 L, MCV 95.2, MCH 33.8 H, MCHC 35.5, RDW 17.6 H, Plt Count 190, MPV 8.0, Neutrophils % 79.2 H, Lymphocytes % 9.6 L, Monocytes % 9.5, Eosinophils % 1.7, Basophils % 0.1, Neutrophils # 9.7 H, Lymphocytes # 1.2, Monocytes # 1.2 H, Eosinophils # 0.2, Basophils # 0.0 12/07/20 06:30: Sodium 145, Potassium 3.4 L, Chloride 120 H, Carbon Dioxide 21 L, Anion Gap 7 L, BUN 11, Creatinine 0.94, Estimated GFR (MDRD) 62, Glucose 117 H, Calcium 7.3 L, Magnesium 2.1 Status: lab reviewed by me A/P - Problem (1) Diarrhea Current Visit: Yes Code(s): R19.7 - DIARRHEA, UNSPECIFIED Status: Acute (2) Esophagitis Current Visit: Yes Code(s): K20.90 - ESOPHAGITIS, UNSPECIFIED WITHOUT BLEEDING Status: Acute (3) Brain metastases Current Visit: No Code(s): C79.31 - SECONDARY MALIGNANT NEOPLASM OF BRAIN Status: Acute (4) Breast cancer Current Visit: No Status: Acute - Plan Plan: 1. Appetite improving and tolerating more po intake 2. Potassium improving 3. decreased stools 4. Hopefully, will improved enough to go home on Thursday 5. Appointment with Dr. Aleman next 10:00 am
--- NOTE | 2020-12-07 15:49 | PDOC.HOSPP ---
- Subjective Subjective: Patient was seen examined at bedside. Discussed with her . Patient continued to improve. She had been ambulating well. Her appetite is better, she ate about 15% of proportion. She so far has been tolerated well. Her diarrhea has significantly improved. She had some for 2 bowel movements since yesterday, and loose stool rather than diarrhea. She is tolerating solid food better. Her potassium has been corrected. Her renal function has normalized. Her metabolic acidosis has been resolved with alkalinized fluid. Cultures no growth. Overall, she has been progressing well. Likely able to discharge home hopefully can, possibly Thursday or Thursday. - Objective Vital Signs & Weight: Vital Signs (12 hours) Temp Pulse Resp BP Pulse Ox 12/07/20 11:53 97.8 F 107 H 18 128/87 99 12/07/20 07:45 97.9 F 120 H 18 114/76 100 12/07/20 04:23 97.9 F 94 19 114/74 99 Weight Admit Weight 121 lb Weight 121 lb I&O: 12/06/20 12/07/20 12/08/20 06:59 06:59 06:59 Intake Total 3750 3565 Balance 3750 3565 Result Diagrams: 12/07/20 06:30 12/07/20 06:30 Radiology Reviewed by me: Yes EKG Reviewed by me: Yes Hospitalist ROS - Medication Medications: Active Medications Generic Name Dose Route Start Last Admin Trade Name Freq PRN Reason Stop Dose Admin Cholestyramine Resin 4 gm 12/04/20 22:00 12/07/20 09:28 Cholestyramine/Aspartame 4 Gm Packet PO 4 gm 1000,2200 ANTHONY Administration Al Hydroxide/Mg Hydroxide 60 0 ml 12/01/20 17:00 12/07/20 12:14 ml/ Diphenhydramine HCl 150 mg SSW 10 ml / Lidocaine HCl 60 ml/ ACHS ANTHONY Administration Nystatin 6,000,000 units Diphenoxylate HCl/Atropine 1 tab 12/04/20 16:28 12/06/20 17:57 Diphenoxylate Hcl/Atropine Tablet PO 1 tab QIDPRN PRN Administration Diarrhea/Loose Stools Fluconazole 100 mg 12/06/20 09:00 12/07/20 09:27 Fluconazole 100 Mg Tab PO 100 mg DAILY ANTHONY Administration Hydralazine HCl 10 mg 12/02/20 10:00 12/02/20 11:36 Hydralazine 20 Mg/Ml Vial SLOW IVP 10 mg Q4H PRN Administration Persistent BP Elevations Promethazine HCl 12.5 mg/ 50.5 mls @ 202 mls/hr 12/01/20 03:13 12/01/20 23:49 Sodium Chloride IVPB 50.5 mls Q6H PRN Administration Nausea/Vomiting Sodium Bicarbonate 75 meq/ 1,075 mls @ 50 mls/hr 12/07/20 10:24 12/07/20 12:14 Potassium Chloride/Dextrose/ IV 1,075 mls Sod Cl .[id number] ANTHONY Administration Loperamide HCl 2 mg 12/01/20 15:03 12/04/20 08:52 Loperamide Hcl 2 Mg Cap PO 2 mg Q3H PRN Administration Diarrhea/Loose Stools Loperamide HCl 4 mg 12/04/20 21:00 12/07/20 14:28 Loperamide Hcl 2 Mg Cap PO 4 mg TID ANTHONY Administration Memantine 10 mg 12/01/20 21:00 12/07/20 09:27 Memantine Hcl 10 Mg Tab PO 10 mg BID ANTHONY Administration Miscellaneous Medication 0 ml 12/06/20 09:00 12/07/20 12:16 Biotene Mouth [place] 44.3 Ml PO 1 spr Q4HR ANTHONY Administration Morphine Sulfate 2 mg 12/01/20 03:13 12/05/20 21:01 Morphine 2 Mg/Ml Vial SLOW IVP 2 mg Q4H PRN Administration Moderate Pain (4-6) Pantoprazole Sodium 40 mg 12/02/20 21:00 12/07/20 09:27 Pantoprazole 40 Mg Vial IVP 40 mg Q12HR ANTHONY Administration Potassium Chloride 20 meq 12/06/20 08:00 12/07/20 09:27 Potassium Chloride 20 Meq Tab PO 20 meq QAM-WM ANTHONY Administration Sodium Bicarbonate 650 mg 12/03/20 09:00 12/07/20 09:27 Sodium Bicarbonate Tab 325 Mg Tab PO 650 mg BID ANTHONY Administration Sodium Chloride 10 ml 12/04/20 09:00 12/07/20 09:30 Flush - Normal Saline 10 Ml Syringe IVF 10 ml Q12HR ANTHONY Administration Sucralfate 1 gm 12/02/20 11:30 12/07/20 12:14 Sucralfate 1 Gm Tab PO 1 gm ACHS ANTHONY Administration Tizanidine HCl 4 mg 12/04/20 11:31 12/06/20 21:35 Tizanidine Hcl 4 Mg Tab PO 4 mg Q8H PRN Administration Hiccups - Exam General Appearance: NAD Eye: PERRL ENT: normocephalic atraumatic Neck: supple Heart: RRR Respiratory: CTAB Gastrointestinal: soft Extremities: no cyanosis Skin: normal turgor Neurological: cranial nerve grossly intact Musculoskeletal: normal tone Psychiatric: normal affect, normal behavior, A&O x 3 Hosp A/P - Plan Patient is an unfortunate 55 years old female who has significant past medical history of 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 Epigastric pain/Odynophagia - somewhat improved, tolerating some solid foods better today --Suspect due to gastritis/cristal esophagitis related to chemotherapy --CT abd/pel no significant findings. --cont PPI to BID, add carafate. cont Magic Mouthwash with Nystatin ssw. Diflucan added on 12/05 by GI x 14 days --diet as kiah. supportive cares. Appreciate GI input --Progressing well. Likely home on Thursday/Thursday. Chemotherapy related diarrhea (CRD) --slowed down significantly. Cont scheduled Imodium/Questran. Prn Lomotil --GI is following. C diff negative --significantly improved. SIGIFREDO - d/t volume depletion. Resolved with IVF hydration --Cr normalized. Appetite better, decr IVF Metabolic acidosis - d/t gi loss --resolved. adjusted IVF as her diet has improved. Hypovolemic Hypernatremia due GI losses - resolved. --Adjust IVF hydration, follow BMP Dehydration d/t chemotherapy --cont mgt as above --replace lytes N/V/D --d/t chemotherapy --C Diff negative --supportive cares Leukocytosis --improving. no evidence of infection. follow cultures. --C diff negative --will d/c IV abx as BCx no growth Hypokalemia - corrected --replaced, follow AM labs Metastatic breast Ca --oncology is following, oral chemo agent currently on hold Essential HTN --resume Propranolol at lower dose given BP, she on propranolol for intention tremor
[2020-12-08] MEDS: BIOTENE MOUTH SPRAY 44.3 ML PO SCH ×6 (00:19→21:54)
[2020-12-08 05:29] LABS: #Eosinphils 0.2 thou/uL (0.0-0.7); #Lymphocytes 1.2 thou/uL (1.20-3.40); #Monocytes 1.2 thou/uL (0.11-0.59); #Neutrophils 11.2 thou/uL (1.40-6.50); %Basophils 0.1 % (0.0-1.0); %Eosinophils 1.3 % (0.0-10.0); %Lymphocytes 8.9 % (21.0-51.0); %Monocytes 8.5 % (0.0-10.0); %Neutrophils 81.2 % (42.0-75.0); Hemoglobin 11.4 g/dL (12.0-16.0); Mean Corpuscular HGB CONC 36.1 g/dL (32.0-36.0); Mean Corpuscular Hemoglobin 34.4 pg (27.0-31.0); Mean Corpuscular Volume 95.2 fL (78.0-98.0); Platelet Count 187 thou/uL (130-400); RBC Distribution Width 17.7 % (11.5-14.5); Red Blood Cell (RBC) Count 3.33 mill/uL (4.20-5.40); White Blood Cell (WBC) Count 13.9 thou/uL (4.8-10.8)
[2020-12-08 05:48] LABS: Anion Gap 8 mmol/L (10-20); BUN (Urea Nitrogen) 10 mg/dL (9.8-20.1); Calc. Creatinine Clearance 67 mL/min (70-130); Calcium 7.2 mg/dL (7.8-10.44); Carbon Dioxide 21 mmol/L (22-29); Chloride 115 mmol/L (98-107); Glucose 96 mg/dL (70-105); Sodium 141 mmol/L (136-145)
[2020-12-08 05:55] LABS: Potassium 2.9 mmol/L (3.5-5.1)
[2020-12-08] MEDS: Sucralfate 1 GM TAB PO SCH ×4 (06:14→21:40)
[2020-12-08] MEDS: Aluminum & Magnesium Hydroxide 60 ML, diphenhydrAMINE 150 MG, Lidocaine 2% Viscous Solu... SSW SCH ×4 (06:14→21:38)
[2020-12-08] MEDS: Potassium Chloride 20 MEQ in Premix Bag 1 BAG IVPB SCH ×4 (06:46→13:21)
[2020-12-08] MEDS ORDERED: POTASSIUM CHLORIDE IV SCH (08:45)
[2020-12-08] MEDS ORDERED: SODIUM BICARBONATE IV SCH (08:45)
[2020-12-08] MEDS ORDERED: [UNRECOGNIZED DRUG - OTHER] IV SCH (08:45)
--- NOTE | 2020-12-08 09:32 | PRG ---
DATE OF SERVICE: 12/08/2020 SUBJECTIVE: Mrs. Trinh is feeling okay this morning. She has had further improvement in odynophagia. No issues with swallowing. No nausea or vomiting. Her appetite is slowly improving. She had 3 loose bowel movements over the course of yesterday, which is overall an improvement. OBJECTIVE: VITAL SIGNS: Temperature 97.8, pulse 97, blood pressure 114/56, 99% oxygen saturation on room air. GENERAL: No acute distress. HEART: Regular rate and rhythm. LUNGS: Clear to auscultation bilaterally. ABDOMEN: Flat. Bowel sounds present. Soft. Nontender to palpation throughout. EXTREMITIES: No peripheral edema. LABORATORY STUDIES: WBC 13.9, hemoglobin 11.4, platelets 187. Sodium 141, potassium 2.9, BUN 10, creatinine 0.81. ASSESSMENT/PLAN: 1. Diarrhea, severe over the past month, improving the past few days. Clostridium difficile assay was negative. This is likely related to recent chemotherapy. She has overall had improvement. Continue with Imodium as needed, also the Questran twice daily. 2. Odynophagia. She has had marked improvement after the addition of fluconazole 3 days ago. This is empiric treatment for possible Christine esophagitis. Plan for completion of a 14-day course of oral fluconazole. I think we will be able to avoid putting her through any endoscopy at this point as she has had such symptomatic improvement. GI will sign off, but please call back anytime with questions or concerns. Job ID: [id number]
[2020-12-08] MEDS: Fluconazole 100 MG TAB PO SCH (09:38)
[2020-12-08] MEDS: Potassium Chloride 20 MEQ TAB PO SCH (09:38)
[2020-12-08] MEDS: Pantoprazole 40 MG VIAL IVP SCH ×2 (09:38→21:39)
[2020-12-08] MEDS: Loperamide HCl 2 MG CAP PO SCH ×3 (09:38→21:40)
[2020-12-08] MEDS: Propranolol 40 MG TAB PO SCH ×2 (09:40→21:43)
[2020-12-08] MEDS: Cholestyramine/Aspartame 4 gm Packet PO SCH ×2 (09:41→21:39)
[2020-12-08] MEDS: Sodium Bicarbonate Tab 325 MG TAB PO SCH (09:44)
[2020-12-08] MEDS: Sodium Bicarbonate 75 MEQ in D5 1/2 NS w/20 mEq KCL 1,000 ML IV SCH (09:51)
--- NOTE | 2020-12-08 10:39 | PDOC.HOSPP ---
- Subjective Encounter Date: 12/08/20 (f/u severe deyhydration) Encounter Time: 10:37 Subjective: pt states she is feeling better, able to take more PO. Denies any nausea or vomiting. Reports 3 water bm's per day. She denies any new sx. - Objective Vital Signs & Weight: Vital Signs (12 hours) Temp Pulse Resp BP Pulse Ox 12/08/20 07:50 97.8 F 97 16 114/56 L 99 12/08/20 04:39 98.1 F 90 20 106/68 99 12/08/20 00:06 97.6 F 88 18 111/71 99 Weight Admit Weight 121 lb Weight 121 lb I&O: 12/07/20 12/08/20 12/09/20 06:59 06:59 06:59 Intake Total 3565 1550 240 Balance 3565 1550 240 Result Diagrams: 12/08/20 05:10 12/08/20 14:55 Hospitalist ROS - Medication Medications: Active Medications Generic Name Dose Route Start Last Admin Trade Name Morq PRN Reason Stop Dose Admin Cholestyramine Resin 4 gm 12/04/20 22:00 12/08/20 09:41 Cholestyramine/Aspartame 4 Gm Packet PO 4 gm 1000,2200 ANTHONY Administration Al Hydroxide/Mg Hydroxide 60 0 ml 12/01/20 17:00 12/08/20 06:14 ml/ Diphenhydramine HCl 150 mg SSW 10 ml / Lidocaine HCl 60 ml/ ACHS ANTHONY Administration Nystatin 6,000,000 units Diphenoxylate HCl/Atropine 1 tab 12/04/20 16:28 12/06/20 17:57 Diphenoxylate Hcl/Atropine Tablet PO 1 tab QIDPRN PRN Administration Diarrhea/Loose Stools Fluconazole 100 mg 12/06/20 09:00 12/08/20 09:38 Fluconazole 100 Mg Tab PO 100 mg DAILY ANTHONY Administration Hydralazine HCl 10 mg 12/02/20 10:00 12/02/20 11:36 Hydralazine 20 Mg/Ml Vial SLOW IVP 10 mg Q4H PRN Administration Persistent BP Elevations Promethazine HCl 12.5 mg/ 50.5 mls @ 202 mls/hr 12/01/20 03:13 12/01/20 23:49 Sodium Chloride IVPB 50.5 mls Q6H PRN Administration Nausea/Vomiting Potassium Chloride 20 meq/ 100 mls @ 50 mls/hr 12/08/20 07:00 12/08/20 09:40 Device IVPB 12/08/20 14:59 100 mls Q2H ANTHONY Administration Loperamide HCl 2 mg 12/01/20 15:03 12/04/20 08:52 Loperamide Hcl 2 Mg Cap PO 2 mg Q3H PRN Administration Diarrhea/Loose Stools Loperamide HCl 4 mg 12/04/20 21:00 12/08/20 09:38 Loperamide Hcl 2 Mg Cap PO 4 mg TID ANTHONY Administration Memantine 10 mg 12/01/20 21:00 12/08/20 09:38 Memantine Hcl 10 Mg Tab PO 10 mg BID ANTHONY Administration Miscellaneous Medication 0 ml 12/06/20 09:00 12/08/20 09:45 Biotene Mouth [place] 44.3 Ml PO 1 spr Q4HR ANTHONY Administration Morphine Sulfate 2 mg 12/01/20 03:13 12/05/20 21:01 Morphine 2 Mg/Ml Vial SLOW IVP 2 mg Q4H PRN Administration Moderate Pain (4-6) Pantoprazole Sodium 40 mg 12/02/20 21:00 12/08/20 09:38 Pantoprazole 40 Mg Vial IVP 40 mg Q12HR ANTHONY Administration Potassium Chloride 20 meq 12/06/20 08:00 12/08/20 09:38 Potassium Chloride 20 Meq Tab PO 20 meq QAM-WM ANTHONY Administration Propranolol HCl 20 mg 12/07/20 21:00 12/08/20 09:40 Propranolol 40 Mg Tab PO Not Given BID ANTHONY Sodium Chloride 10 ml 12/04/20 09:00 12/08/20 09:41 Flush - Normal Saline 10 Ml Syringe IVF 10 ml Q12HR ANTHONY Administration Sucralfate 1 gm 12/02/20 11:30 12/08/20 06:14 Sucralfate 1 Gm Tab PO 1 gm ACHS ANTHONY Administration Tizanidine HCl 4 mg 12/04/20 11:31 12/06/20 21:35 Tizanidine Hcl 4 Mg Tab PO 4 mg Q8H PRN Administration Hiccups - Exam General Appearance: NAD Heart: RRR, no murmur Respiratory: CTAB, no wheezes, no rales, no ronchi Gastrointestinal: soft, non-tender, non-distended, normal bowel sounds Extremities: no cyanosis, no clubbing, no edema Psychiatric: normal affect Hosp A/P (1) SIGIFREDO (acute kidney injury) Code(s): N17.9 - ACUTE KIDNEY FAILURE, UNSPECIFIED Status: Resolved (2) Metabolic acidosis Code(s): E87.2 - ACIDOSIS Status: Acute (3) Gastritis Code(s): K29.70 - GASTRITIS, UNSPECIFIED, WITHOUT BLEEDING Status: Acute Qualifiers: Gastritis type: unspecified gastritis (4) Hypokalemia Code(s): E87.6 - HYPOKALEMIA Status: Acute (5) Diarrhea Code(s): R19.7 - DIARRHEA, UNSPECIFIED Status: Acute (6) Esophagitis Code(s): K20.90 - ESOPHAGITIS, UNSPECIFIED WITHOUT BLEEDING Status: Acute (7) Brain metastases Code(s): C79.31 - SECONDARY MALIGNANT NEOPLASM OF BRAIN Status: Chronic (8) Breast cancer Status: Chronic - Plan Epigastric pain/Odynophagia - somewhat improved, tolerating some solid foods better today - Suspect due to gastritis/cristal esophagitis related to chemotherapy - CT abd/pel no significant findings. - cont PPI, carafate. Magic Mouthwash with Nystatin ssw amd Diflucan (added on 12/05 by GI x 14 days) Chemotherapy related diarrhea (CRD) - slowed down significantly. Cont scheduled Imodium/Questran. Prn Lomotil - GI is following. C diff negative - significantly improved. SIGIFREDO - d/t volume depletion. Resolved with IVF hydration - Cr normalized. Appetite better, - anticipate d/c IVF tomorrow Metabolic acidosis - d/t gi loss - d/c sodium bicarb and re-evaluate tomorrow Hypovolemic Hypernatremia due GI losses - resolved. - resolved Leukocytosis - stable, no evidence of infection. follow cultures. --C diff negative - negative cultures and abx d/c Hypokalemia --replace, recheck this afternoon improved - change IVF to potassium containing Metastatic breast Ca - oncology is following, oral chemo agent currently on hold - resume anastrozole as pt was on this prior to admission Essential HTN/tremor - continue propranolol at lower than home dose dvt prophy - ambulatory gi prophy - on IV PPI due to esophagitis Code status -full anticipate pt ready for d/c in the next few days when potassium levels are stable/normal reviewed plan of care with patient/, no questions or further needs at end of eval.
[2020-12-08] MEDS ORDERED: Anastrozole 1 MG TAB PO SCH (11:00)
[2020-12-08] MEDS: D5 1/2 NS w/20 mEq KCL 1,000 ML IV SCH ×2 (11:58→18:14)
[2020-12-08] MEDS: Diphenoxylate HCl/Atropine Tablet PO PRN (13:21)
[2020-12-08 16:01] LABS: Anion Gap 9 mmol/L (10-20); BUN (Urea Nitrogen) 9 mg/dL (9.8-20.1); Calc. Creatinine Clearance 68 mL/min (70-130); Calcium 7.4 mg/dL (7.8-10.44); Carbon Dioxide 20 mmol/L (22-29); Chloride 113 mmol/L (98-107); Glucose 95 mg/dL (70-105); Potassium 3.6 mmol/L (3.5-5.1); Sodium 138 mmol/L (136-145)
[2020-12-09] MEDS: BIOTENE MOUTH SPRAY 44.3 ML PO SCH ×3 (01:56→08:40)
[2020-12-09 04:23] LABS: #Eosinphils 0.1 thou/uL (0.0-0.7); #Lymphocytes 1.1 thou/uL (1.20-3.40); #Monocytes 1.5 thou/uL (0.11-0.59); #Neutrophils 10.7 thou/uL (1.40-6.50); %Basophils 0.1 % (0.0-1.0); %Eosinophils 1.1 % (0.0-10.0); %Lymphocytes 8.2 % (21.0-51.0); %Monocytes 11.3 % (0.0-10.0); %Neutrophils 79.4 % (42.0-75.0); Hemoglobin 11.6 g/dL (12.0-16.0); Mean Corpuscular Hemoglobin 34.3 pg (27.0-31.0); Mean Corpuscular Volume 95.3 fL (78.0-98.0); Mean Platelet Volume 7.6 fL (7.4-10.4); Platelet Count 214 thou/uL (130-400); RBC Distribution Width 17.7 % (11.5-14.5); Red Blood Cell (RBC) Count 3.38 mill/uL (4.20-5.40); White Blood Cell (WBC) Count 13.5 thou/uL (4.8-10.8)
[2020-12-09 04:59] LABS: Anion Gap 9 mmol/L (10-20); BUN (Urea Nitrogen) 9 mg/dL (9.8-20.1); Calc. Creatinine Clearance 70 mL/min (70-130); Calcium 7.3 mg/dL (7.8-10.44); Carbon Dioxide 20 mmol/L (22-29); Chloride 112 mmol/L (98-107); Glucose 98 mg/dL (70-105); Potassium 3.4 mmol/L (3.5-5.1); Sodium 138 mmol/L (136-145)
[2020-12-09] MEDS: Sucralfate 1 GM TAB PO SCH ×2 (06:23→11:00)
[2020-12-09] MEDS: Aluminum & Magnesium Hydroxide 60 ML, diphenhydrAMINE 150 MG, Lidocaine 2% Viscous Solu... SSW SCH ×2 (06:23→11:02)
[2020-12-09] MEDS: Diphenoxylate HCl/Atropine Tablet PO PRN (06:45)
[2020-12-09] MEDS ORDERED: Potassium Chloride 20 MEQ TAB PO SCH (06:45)
[2020-12-09] MEDS: Potassium Chloride 20 MEQ TAB PO SCH (08:38)
[2020-12-09] MEDS: Loperamide HCl 2 MG CAP PO SCH (08:38)
[2020-12-09] MEDS: Fluconazole 100 MG TAB PO SCH (08:38)
[2020-12-09] MEDS ORDERED: Anastrozole 1 MG TAB PO SCH (09:00)
[2020-12-09] MEDS: Propranolol 40 MG TAB PO SCH (09:08)
[2020-12-09] MEDS: Cholestyramine/Aspartame 4 gm Packet PO SCH (11:00)
[2020-12-09 12:52] VITALS: BP 103/55; TEMP 98
--- NOTE | 2020-12-10 06:58 | DIS ---
DATE OF ADMISSION: 11/30/2020 DATE OF DISCHARGE: 12/09/2020 MEDICATIONS: Reconciled at discharge. New medications: 1. Questran Light 4 g twice daily at 10 a.m. and 10 p.m., prescribed 30 packets. 2. Diflucan 100 mg p.o. daily for 9 days. 3. Nystatin 100,000 units per mL, 5 mL swish and swallow 4 times daily. 4. Protonix 40 mg p.o. b.i.d. 5. Potassium chloride 20 mEq two once daily with a recheck needed at the end of the week. 6. Sucralfate 1 g tablets one tablet 4 times daily. 7. Tizanidine 4 mg every 8 hours as needed for back pain. Medications changed: 1. Loperamide changed to 4 mg scheduled t.i.d. 2. Inderal changed to 40 mg - one-half tablet p.o. b.i.d. Medications to resume: 1. Lomotil 1 tablet 4 times daily as needed for diarrhea. 2. Memantine 10 mg p.o. b.i.d. 3. Zofran 8 mg t.i.d. p.r.n. 4. Prochlorperazine 10 mg q.6 hours p.r.n. 5. Promethazine 25 mg q.6 hours p.r.n. 6. Anastrozole 1 mg p.o. daily. Medications discontinued: 1. Tukysa, discontinue this until told otherwise by Oncology. 2. Famotidine as this has been replaced by Protonix. 3. Xeloda, discontinue this until told otherwise by Oncology. CONSULTANTS: 1. Oncology. 2. Gastroenterology. FINAL DIAGNOSES: 1. Severe dehydration secondary to nausea, vomiting, diarrhea. 2. Acute kidney injury, resolved. 3. Esophagitis and gastritis. 4. Diarrhea, likely secondary to chemotherapy. 5. Metabolic acidosis, improved. 6. Hypokalemia, improved. 7. Leukocytosis, stable. 8. Anemia, mild. SECONDARY DIAGNOSES: 1. Breast cancer with brain metastases. 2. Essential tremor. 3. Hypoproteinemia. HISTORY OF PRESENT ILLNESS: Ms. Trinh is a 55-year-old female with the above medical problems, who presented to the emergency room severely dehydrated with nausea and vomiting. She had been on chemotherapy at home, with progressive symptoms that have been going on for about 10 days. She was admitted for treatment. HOSPITAL COURSE: The patient has been treated with IV fluids, bicarbonate to address the metabolic acidosis, managing the nausea and vomiting. Her renal function has normalized. She has been evaluated by Gastroenterology who recommended empiric treatment of esophagitis and gastritis with Diflucan, a PPI. They also recommended treating the diarrhea with Questran, scheduled Imodium, and as needed Lomotil. The patient throughout this hospitalization has improved significantly with her ability to take p.o. The patient was also evaluated by Oncology, with recommendation to hold her chemotherapy medications until followup which has been arranged this next week with Dr. Aleman on at 10. She will need repeat checks of her blood count as well as her potassium level to ensure that it is appropriately replaced. On the day of discharge, it is 3.4, I am sending her home with 40 mEq once daily of potassium. The patient does have general weakness. She desires to go home and continue working on that on her own. She is overall improved, able to adequately take p.o., she does meet criteria for discharge. The patient is on propranolol daily for management of her tremors. This has been reduced to half of her home dose. Her blood pressures have remained above 100 systolic. The patient did receive antibiotics for concern of sepsis given the presentation. She was on cefepime, which was discontinued on December 05, and vancomycin which was discontinued, the last dose was given on December 04. PHYSICAL EXAMINATION: VITAL SIGNS: On day of discharge, temperature 97.9, pulse 98, respirations 19, sat 99% on room air, blood pressure 103/70. GENERAL: Awake, alert, responsive, not in apparent distress. Able to speak in full sentences. LUNGS: Clear to auscultation bilateral. No audible wheezing, rhonchi, or rales. HEART: Normal S1, S2. Regular rate and rhythm. No significant murmur. ABDOMEN: Soft with present bowel sounds, nontender, nondistended. EXTREMITIES: No edema. ANDERSON FINDINGS AND TEST RESULTS: CBC today 13.5, 11.6, 32.2, and 214. On day of admission, her CBC was 21.4, 20.2, 56.3, 307. Chemistry today, 138, 3.4, 112, 20, 9, 0.78, 98 with the calcium of 7.3. On December 05, liver function tests, T bilirubin 0.6, AST 18, ALT 14, alkaline phosphatase 47, total protein 3.9, albumin 2.3. Urinalysis on December 03 showed protein, glucose, trace ketones, and bacteria. COVID test was negative. Blood cultures x2 were negative. C difficile test was negative on December 01. Urine culture negative on December 03. CT of the abdomen and pelvis on December 02 showed diminished intravascular volume with thinning of the IVC and renal veins, mild edematous appearance of the bowel wall. No obstruction or focal inflammation. Brain CT on November 30, no acute intracranial abnormality, scattered areas that were present on recent MRI not well delineated on the noncontrast CT. Chest x-ray on November 30, no acute cardiopulmonary process. DIET: As tolerated with supplements recommended here are the Ensure Enlive or Glucerna shakes 3 times daily and Mighty shakes with meals 3 times daily. ACTIVITY: As tolerated. FOLLOWUP: With Dr. Aleman on December 13 at 10 a.m. Reviewed with the patient and her this morning this hospitalization, the importance of followup and the seek care precautions. They both demonstrate understanding. TIME SPENT: Total time coordinating discharge is 40 minutes. Job ID: [id number] [facility]
--- NOTE | 2020-12-11 22:18 | PQF ---
Dear : Dolores Strong Date 12/12/19 Please exercise your independent, professional judgment in responding to the clarification form. Clinical indicators are provided on the bottom of this form for your review Can you please further clarify the nutritional status of the patient? Please check appropriate box(es): [ XX ] Protein Calorie Malnutrition: [ ] Mild [ XX ] Moderate [ ] Severe [ ] Other Malnutrition (please specify) [ ] Underweight without malnutrition [ ] Cachexia [ ] Other diagnosis please specify [ ] Unable to determine Physician Signature: Date/Time: For continuity of documentation, please document condition throughout progress notes and discharge summary. Thank You. To be completed by CDI/Coding staff for physician review: Present Clinical Indicators - Signs / Symptoms / Labs Results and Location in Medical Record [ x ] Severe malnutrition Nutritional assessment 12/03/20 [ x ] moderate to severe clavicle wasting Nutritional assessment 12/03/20 [ x ] Moderate orbital adipose tissue wasting Nutritional assessment 12/03/20 [ x ] Acute weight loss (18% weight loss in 8 months Nutritional assessment 12/03/20 [ x ] Poor appetite Nutritional assessment 12/03/20 [ x ] BMI 21.4 Nutritional assessment 12/03/20 [ x ] Protein calorie malnutrition Consult pg.2 Dr. Grullon 12/05 [ x ] Nausea vomiting, diarrhea x 10 days due to oral chemo H and P pg.1 [ x ] Albumin: 11/30=4.2 12/01=2.9 12/05=2.3 Laboratory 11/30 [ x ] Total Protein: 11/30=7.5 12/01=4.8 12/05=3.9 Laboratory 11/30 Present Risk Factors Results and Location in Medical Record [ x ] Severe dehydration H and P pg.4 [ x ] Breast cancer H and P pg.1 [ x ] Brain cancer H and P pg.1 [ x ] SIGIFREDO H and P pg.4 [ x ] esophagitis DS pg.1 [ x ] gastritis DS pg.1 Present Treatments Results and Location in Medical Record [ x ] Dietary consult Nutritional assessment 09/08 [ x ] GI Consult Dr. Grullon [ x ] IV Fluids MAR [ x ] Potassium chloride 20meq IV MAR [ x ] Electrolyte replacement MAR [ x ] Supplement with Ensure Enlive TID, Glucerna Shakes TID and Mighty Shakes TID Nutritional assessment 12/07/20 [ x ] Monitor weight change Nutritional assessment 12/07/20 [ x ] Monitor total protein intake Nutritional assessment 12/07/20 CDS/Application Systems Architect Signature: Aron Dash Phone #: ext [phone] Date/Time: 12/12/20 Moderate Malnutrition (in acute illness) ? Energy Intake: <75% of estimated energy requirement for > 7 days ? Weight Loss: 1-2%/1 week; 5%/ 1 month; 7.5%/3 months ? Other: mild body fat loss; mild muscle mass loss; mild fluid accumulation; Severe Malnutrition (in acute illness) ? Energy Intake: ? 50% of estimated energy requirement for ? 5 days ? Weight Loss: >2%/1 week; >5%/1 month; >7.5%/3 months ? Other: moderate body fat loss; moderate muscle mass loss; moderate- severe fluid accumulation; measurably reduced litigation legal assistant strength Moderate Malnutrition (in chronic illness) ? Energy Intake: <75% of estimated energy requirement for ?1 month ? Weight Loss: 5%/1 month; 7.5%/3 months; 10%/6 months; 20%/1 year ? Other: mild body fat loss; mild muscle mass loss; mild fluid accumulation Severe Malnutrition (in chronic illness) ? Energy Intake: ?75% of estimated energy requirement for ?1 month ? Weight Loss: >5%/1 month; >7.5%/3 months; >10%/6 months; >20%/1 year ? Other: severe body fat loss; severe muscle mass loss; severe fluid accumulation; measurably reduced litigation legal assistant strength This is a permanent part of the Medical Record MTDD
== END 2020-12-09 13:27 | disposition home or self-care (01) | DRG 394 ==
LOC: ERS 21:36 → ERHOLD 23:56 → SJJU 12-01 02:20
PROVIDERS: ADMIT Internal Medicine; ATTEND Family Medicine
DX: K52.1 Toxic gastroenteritis and colitis (principal); N17.9 Acute kidney failure, unspecified; C79.31 Secondary malignant neoplasm of brain; E87.2 Acidosis; E87.0 Hyperosmolality and hypernatremia; E44.0 Moderate protein-calorie malnutrition; Z20.822 Contact with and (suspected) exposure to COVID-19; E86.0 Dehydration; K20.90 Esophagitis, unspecified without bleeding; K29.70 Gastritis, unspecified, without bleeding; T45.1X5A Adverse effect of antineoplastic and immunosuppressive drugs, initial encounter; E87.6 Hypokalemia; C50.919 Malignant neoplasm of unspecified site of unspecified female breast; D64.9 Anemia, unspecified; G25.0 Essential tremor; I10 Essential (primary) hypertension; E77.8 Other disorders of glycoprotein metabolism; R13.10 Dysphagia, unspecified; Z17.0 Estrogen receptor positive status [ER+]; Z88.0 Allergy status to penicillin; Z88.2 Allergy status to sulfonamides; Z68.21 Body mass index [BMI] 21.0-21.9, adult
CPT/HCPCS: 36415; 70450; 71045; 74177; 80048; 80053; 80202; 81001; 83605; 83735; 85025; 87040; 87086; 87324; 87449; 87635; 93005; 94760; 96365; 96367; 96375; C9113; J0360; J0692; J1642; J2270; J2405; J2550; J3370; J3475; J3480; J3490; J7042; J7050; Q0163; Q9967; U0003

== ENCOUNTER 2020-12-25 09:14 | Day surgery (SDC) | payer SELFPAY ==
[2020-12-25] MEDS ORDERED: Sodium Chloride 0.9% 20 ML ONE (09:18)
[2020-12-25 09:53] VITALS: BP 116/80; TEMP 98.1
== END 2020-12-25 12:41 | disposition home or self-care (01) ==
LOC: ONC/OP 09:14
PROVIDERS: ATTEND Internal Medicine Hematology & Oncology
DX: Z51.12 Encounter for antineoplastic immunotherapy (principal); C50.411 Malignant neoplasm of upper-outer quadrant of right female breast; Z88.0 Allergy status to penicillin; Z88.5 Allergy status to narcotic agent
CPT/HCPCS: 96413; J1642; J7050; Q5117

== ENCOUNTER 2020-12-28 05:06 | Emergency (ER) | payer SELFPAY ==
[2020-12-28] MEDS ORDERED: Lorazepam 2 MG/ML VIAL ONE (05:10)
[2020-12-28 06:15] LABS: #Eosinphils 0.2 thou/uL (0.0-0.7); #Lymphocytes 1.7 thou/uL (1.20-3.40); #Monocytes 0.5 thou/uL (0.11-0.59); #Neutrophils 4.9 thou/uL (1.40-6.50); %Basophils 0.7 % (0.0-1.0); %Eosinophils 2.4 % (0.0-10.0); %Lymphocytes 23.2 % (21.0-51.0); %Monocytes 6.8 % (0.0-10.0); Hemoglobin 10.7 g/dL (12.0-16.0); Mean Corpuscular HGB CONC 33.4 g/dL (32.0-36.0); Mean Corpuscular Hemoglobin 32.9 pg (27.0-31.0); Mean Corpuscular Volume 98.6 fL (78.0-98.0); Mean Platelet Volume 6.6 fL (7.4-10.4); Platelet Count 279 thou/uL (130-400); RBC Distribution Width 15.8 % (11.5-14.5); Red Blood Cell (RBC) Count 3.24 mill/uL (4.20-5.40); White Blood Cell (WBC) Count 7.3 thou/uL (4.8-10.8)
[2020-12-28 06:38] LABS: ALT (SGPT) 23 U/L (8-55); AST (SGOT) 38 U/L (5-34); Albumin 2.1 g/dL (3.5-5.0); Alkaline Phosphatase 100 U/L (40-110); Anion Gap 11 mmol/L (10-20); BUN (Urea Nitrogen) 9 mg/dL (9.8-20.1); Bilirubin, Total 0.4 mg/dL (0.2-1.2); Calc. Creatinine Clearance 0 mL/min (70-130); Calcium 7.6 mg/dL (7.8-10.44); Carbon Dioxide 26 mmol/L (22-29); Chloride 105 mmol/L (98-107); Globulin 2.5 g/dL (2.4-3.5); Glucose 95 mg/dL (70-105); Potassium 3.4 mmol/L (3.5-5.1); Protein, Total 4.6 g/dL (6.0-8.3); Sodium 139 mmol/L (136-145)
[2020-12-28] MEDS ORDERED: Dexamethasone 10 MG/ML VIAL ONE (11:43)
[2020-12-28] MEDS ORDERED: Magnevist 469MG/ML 20 ML VIAL ONE (14:21)
== END 2020-12-28 13:05 | disposition home or self-care (01) ==
LOC: ERS 05:06
DX: R56.9 Unspecified convulsions (principal); C79.81 Secondary malignant neoplasm of breast; C79.31 Secondary malignant neoplasm of brain; Z79.899 Other long term (current) drug therapy
CPT/HCPCS: 70450; 70553; 80053; 85025; 93005; 96374; 96375; A9579; J1100; J2060

== ENCOUNTER 2021-01-02 07:54 | Day surgery (SDC) | payer SELFPAY ==
[2021-01-01 13:31] VITALS: BMI 21.9
[2021-01-02] MEDS ORDERED: STERILE WATER IVPB SCH (09:00)
[2021-01-02] MEDS ORDERED: TRASTUZUMAB ANNS IVPB SCH (09:00)
[2021-01-02 09:17] VITALS: BP 113/72; TEMP 98.4
--- NOTE | 2021-01-02 10:31 | RAD ---
Lumbar puncture fluoroscopic guided, intrathecal medication injection HISTORY: Breast cancer with intracranial metastases. FINDINGS: After explaining the procedure and answering all questions, the lower back was prepped and draped in usual sterile fashion. Sterile technique, buffered local anesthesia, fluoroscopic guidance, and a posterior L3-4 approach we re used to carefully advance the tip of a 22-gauge spinal needle to the thecal sac. A total volume of 8 cc clear CSF was collected and submitted to laboratory in 4 sterile tubes. Over the course of 3 minutes, a total volume of 7.6 cc containing 160 mg Trastuzamab-ANNS 420 was inj ected into the thecal sac. Needle was removed. Patient tolerated the procedure well and was returned to the holding area in good condition for further monitoring. IMPRESSION : Technically successful lumbar puncture/intrathecal medication injection.
[2021-01-02 11:21] LABS: CSF Source CSF; Clarity Clear (Clear); Tube # 4
[2021-01-02 12:22] LABS: CSF, Glucose 76 mg/dl (40-70); CSF, Protein 21 mg/dL (15-40)
[2021-01-02 13:14] LABS: Cell Count Non Hematic 15 %; Segmented Neutrophils 70 %
[2021-01-02 13:15] LABS: Lymphocytes 14 %
== END 2021-01-02 11:10 | disposition home or self-care (01) ==
LOC: RAD 07:54
PROVIDERS: ATTEND Internal Medicine Hematology & Oncology
PROC: 00JU3ZZ Inspection of Spinal Canal, Percutaneous Approach (ICD-10-PCS; principal; 2021-01-02)
DX: C50.919 Malignant neoplasm of unspecified site of unspecified female breast (principal); C79.31 Secondary malignant neoplasm of brain; Z79.899 Other long term (current) drug therapy; Z88.0 Allergy status to penicillin; Z88.5 Allergy status to narcotic agent
CPT/HCPCS: 62270; 82945; 84157; 85060; 88112; 89051; Q5117

== ENCOUNTER 2021-01-07 10:17 | Day surgery (SDC) | payer SELFPAY ==
[2021-01-04 12:00] VITALS: BMI 21.9
[2021-01-07] MEDS ORDERED: TRASTUZUMAB ANNS IV SCH (10:30)
[2021-01-07] MEDS ORDERED: SODIUM CHLORIDE 0.9% IV SCH (10:30)
[2021-01-07 11:03] VITALS: BP 104/78; TEMP 97.4
[2021-01-07] MEDS ORDERED: Acetaminophen 500 MG TAB ONE (14:29)
--- NOTE | 2021-01-07 14:34 | RAD ---
Exam: Fluoroscopic guided lumbar puncture HISTORY: Patient has breast cancer to the brain. Intrathecal chemotherapy administration is requested COMPARISON: 01/02/2021 Findings: Successful lumbar puncture despite multiple attempts. TECHNIQUE: Consent obtained performing lumbar puncture. The L3-L4 and L4-L5 levels were attempted. De spite multiple attempts, CSF would not flow to the hub of the needle. Therefore, the examination was terminated and performed under CT guidance IMPRESSION: Unsuccessful fluoroscopically guided lumbar puncture for intrathecal chemotherapy adminis tration
--- NOTE | 2021-01-07 14:35 | CT ---
Exam: CT guided lumbar puncture for chemotherapy administration HISTORY: Metastatic breast cancer to the brain. FINDINGS: Successful CT-guided chemotherapy administration into the intrathecal space. Total of 8 mL of 160 mg of Trastuzumab 420 was injected into the thecal sac. No immediate or postprocedural complications. TECHNIQUE: Consent obtained to perform a CT-guided lumbar puncture for chemotherapeutic administratio n. Patient's back was evaluated and the L4-L5 level was deemed appropriate. Skin was prepped and draped in the sterile fashion. 1% lidocaine, buffered with sodium bicarbonate was used for local anes thesia. Under CT guidance, 22-gauge spinal needle was advanced into the thecal sac. Needle position was confirmed with administration of 8 mL of Isovue-M 200 contrast. Contrast did opacify the thecal sac and nerve roots were present/outlined. Over an 8 minute period, the chemotherapy agent that was provided was injected. Patient tolerated the procedure well. No immediate or postprocedure c omplications. IMPRESSION: Successful CT-guided intrathecal administration of chemotherapy agent. Transcribed Date/Time: 01/07/2021 3:23 PM
--- NOTE | 2021-01-07 15:31 | CT ---
Exam: Fluoroscopic guided lumbar puncture HISTORY: Patient has breast cancer to the brain. Intrathecal chemotherapy administration is requested COMPARISON: 01/02/2021 Findings: Successful lumbar puncture despite multiple attempts. TECHNIQUE: Consent obtained performing lumbar puncture. The L3-L4 and L4-L5 levels were attempted. De spite multiple attempts, CSF would not flow to the hub of the needle. Therefore, the examination was terminated and performed under CT guidance IMPRESSION: Unsuccessful fluoroscopically guided lumbar puncture for intrathecal chemotherapy adminis tration Transcribed Date/Time: 01/07/2021 3:30 PM
== END 2021-01-07 15:00 | disposition home or self-care (01) ==
LOC: RAD 10:17
PROVIDERS: ATTEND Internal Medicine Hematology & Oncology
PROC: 009U3ZX Drainage of Spinal Canal, Percutaneous Approach, Diagnostic (ICD-10-PCS; principal; 2021-01-07)
DX: C50.919 Malignant neoplasm of unspecified site of unspecified female breast (principal); C79.31 Secondary malignant neoplasm of brain; I10 Essential (primary) hypertension; Z79.811 Long term (current) use of aromatase inhibitors; Z79.899 Other long term (current) drug therapy; Z88.0 Allergy status to penicillin; Z88.5 Allergy status to narcotic agent
CPT/HCPCS: 62270; 72131; 77002; Q5117

== ENCOUNTER 2021-01-09 12:19 | Outpatient (CLI) | payer OTHER, SELFPAY | END 2021-01-09 12:20 | disposition home or self-care (01) | LOC: ULT 12:19 | PROVIDERS: ATTEND Internal Medicine Hematology & Oncology | DX: Z51.11 Encounter for antineoplastic chemotherapy (principal); C79.31 Secondary malignant neoplasm of brain; C50.411 Malignant neoplasm of upper-outer quadrant of right female breast; I35.1 Nonrheumatic aortic (valve) insufficiency; Z79.899 Other long term (current) drug therapy | CPT/HCPCS: 93306 ==

== ENCOUNTER 2021-01-11 09:01 | Outpatient (CLI) | payer SELFPAY ==
[2021-01-11] MEDS ORDERED: Iopamidol 370 76% 100 ML VIAL ONE (11:29)
== END 2021-01-11 09:02 | disposition home or self-care (01) ==
LOC: CT 09:01
PROVIDERS: ATTEND Internal Medicine Hematology & Oncology
DX: C50.411 Malignant neoplasm of upper-outer quadrant of right female breast (principal); C79.31 Secondary malignant neoplasm of brain
CPT/HCPCS: 71260; 74177; 78306; A9503; Q9967

== ENCOUNTER 2021-01-14 08:50 | Inpatient (IN) | payer OTHER, SELFPAY ==
[2021-01-14 16:34] LABS: Bilirubin Negative (Negative); Blood, Urine Negative (Negative); Clarity Clear (Clear); Glucose, Urine (Dipstick) Normal (Negative); Ketone, Urine 20 mg/dL (Negative); Leukocyte Negative Leu/uL (Negative); Nitrite Negative (Negative); Protein, Urine (Dipstick) 10 mg/dL (Neg-Trace); Specific Gravity, Urine 1.011 (1.002-1.036); Urobilinogen Normal mg/dL (Less than 2); pH, Urine 6.5 (5.0-9.0)
--- NOTE | 2021-01-14 17:01 | RAD ---
FRONTAL RADIOGRAPH CHEST: 01/14/21 9:23 a.m. HISTORY: Short of breath. COMPARISON: None. FINDINGS: There are postoperative clips in the right axillary region. There is a CT injectable left-sided Port- A-Cath. No pneumothorax is noted. No focal consolidation or alveolar edema. There is subtle increased density in the left costophrenic angle with blunting of the left costophren ic angle, etiology/significance uncertain without comparison imaging. IMPRESSION: Mild increased density in the left costophrenic angle which could represent mild infiltrate, small vo lume pleural effusion, scar and/or underlying pulmonary nodule. Evaluation is limited without comparison imaging. Recommend further assessment with PA and lateral imaging of the chest. CODE T POS: DILIP
--- NOTE | 2021-01-14 18:03 | CT ---
CT HEAD WITHOUT CONTRAST: INDICATIONS: Weakness. States there is a history of breast cancer with brain metastasis. COMPARISON: There are no comparison studies. FINDINGS: Cortical volume loss. Ventricles have normal size and position. Abnormal white matter lucency in the periventricular white matter of both cerebral hemispheres is prominent for age and consistent with ch ronic ischemic white matter change. Focal lucency in the right cerebellar hemisphere suggests old cerebellar infarct. There is abnormal lucency in the subcortical white matter of the right occipital lobe with evidence o f some mild volume loss. This suggests chronic ischemic change. Lucencies within the deep white matte r in the centrum semiovale region could represent ischemic changes. There is focal volume loss in the cortex of the superior left frontal lobe, in the parasagittal region. Some of the lucency seen in th e deep white matter and subcortical regions could represent treated metastatic disease, given the his tory. Comparison with old films would be of benefit. A follow-up MRI with and without contrast may also be of benefit. IMPRESSION: 1. 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 2. Prominent chronic white matter changes are noted. Consider follow-up MRI if there is concern of new brain metastasis. POS: AGW
--- NOTE | 2021-01-14 18:09 | PDOC.HHP ---
Hospitalist HPI Spasms of hands and legs History of Present Illness: This is a 55-year-old white female with a known history of breast cancer metastatic to the brain followed by Dr. Aleman. Patient was hospitalized last month with nausea and vomiting and volume depletion secondary to her chemotherapy. That has since resolved and she has been eating well and had decent strength until yesterday night. Patient started developing spasms and jerking of her hands and her bilateral lower extremities from the hips down to the feet. The spasms are not necessarily painful but they are uncomfortable and they have been persistent. They have gotten to the point now where she is unable to stand to do the spasming of the muscles. Patient has been receiving subdural injections of a chemotherapy agent for her brain metastases. No other new medications. ED Course: Patient was evaluated in the emergency room. She had a CT scan of the brain which did show the metastatic disease but it does not appear like they were able to compare to previous films due to computers being down at the time. She was found to also be very mildly hyponatremic and hypokalemic. No other etiology determined for her spasms and weakness. Allergies/Adverse Reactions: Allergy/AdvReac Type Severity Reaction Status Date / Time codeine Allergy Intermediate Hives Verified 01/11/21 10:52 Penicillins Allergy Intermediate Hives Verified 01/11/21 10:52 Home Medications: Medication Instructions Recorded Confirmed Type Anastrozole [Arimidex] 1 mg PO DAILY 04/16/20 01/11/21 History Diphenoxylate HCl/Atropine 1 tab PO BID 12/01/20 01/11/21 History [Lomotil] Memantine HCl 10 mg PO BID 12/01/20 01/11/21 History Prochlorperazine Maleate 10 mg PO Q6H PRN 12/01/20 01/11/21 History Nystatin 5 ml SSW ACHS #300 ml 12/09/20 01/11/21 Rx Pantoprazole [Protonix] 40 mg PO BID #60 tab 12/09/20 01/11/21 Rx Propranolol [Inderal] 0.5 tab PO BID #0 12/09/20 01/11/21 Rx Acetaminophen [Acetaminophen Extra 1,000 mg PO Q6HR PRN 01/02/21 01/11/21 His tory Strength] Dexamethasone 4 mg PO DAILY 01/02/21 01/11/21 History Sucralfate [Carafate] 1 gm PO TID-WM 01/02/21 01/11/21 History Tucatinib [Tukysa] 6 tab PO BID 01/02/21 01/11/21 History Past History: PMHx: 1. 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 Hypertension PSHx: 1. Lumpectomy 2. Hysterectomy 3. FHx: Family history of heart disease. No history of breast cancer or ovarian cancer. Social: Patient denies tobacco or illicit drug use. She is a social drinker. She is and lives with her who is present in the emergency room. She has 1 child. She is a full code. Should she be incapacitated her would be her medical decision-maker. His name is Bola Trinh. Hospitalist HPI ROS Constitutional: denies: fever, chills Eyes: reports: vision change (Longstanding due to metastatic disease to the brain). denies: redness ENT: denies: nose discharge, nose congestion, throat pain, throat swelling Respiratory: denies: cough, shortness of breath, SOB with excertion, pleuritic pain Cardiovascular: denies: chest pain, palpitations, edema Gastrointestinal: reports: diarrhea (Used to have significant diarrhea due to chemotherapy, but this is markedly improved and is well controlled with medications as needed). denies: nausea, vomiting, abdominal pain, constipation Genitourinary: denies: dysuria, incontinence, hematuria Musculoskeletal: denies: neck pain, arm pain, back pain, hand pain, leg pain, foot pain Skin: denies: rash, lesions Neurological: reports: other (None other than HPI) Hospitalist Exam General Appearance: NAD, awake alert General - other findings: Thin and frail appearing Eye: PERRL, anicteric sclera ENT: normocephalic atraumatic, no oropharyngeal lesions, moist mucosa Neck: supple, symmetric, no JVD, no thyromegaly, no lymphadenopathy Heart: RRR, no murmur, no gallops, no rubs, normal peripheral pulses Respiratory: CTAB, no wheezes, no rales, no ronchi, normal chest expansion, no tachypnea Gastrointestinal: soft, non-tender, non-distended, normal bowel sounds, no palpable masses, no hepatomegaly, no splenomegaly, no guarding, no rigidity Extremities: no cyanosis, no clubbing, no edema Skin: normal turgor, no lesions, no rashes Neurological: cranial nerve grossly intact, normal sensation to touch Musculoskeletal: normal strength, no muscle wasting. negative: normal tone (Fairly persistent jerking and fasciculations of bilateral lower extremities, especially feet and calves. Not as noticeable in her hands. Appears a little weaker on her left hand and left lower extremity compared to right however she is right-handed.) Psychiatric: normal affect, normal behavior, A&O x 3 Hospitalist Results Lab results: Laboratory Last Values Urine Color Light-Yellow (Yellow) 01/14/21 12:50 Urine Clarity Clear (Clear) 01/14/21 12:50 Urine pH 6.5 (5.0-9.0) 01/14/21 12:50 Ur Specific [place] 1.011 (1.002-1.036) 01/14/21 12:50 Urine Protein 10 mg/dL (Neg-Trace) 01/14/21 12:50 Urine Glucose (UA) Normal mg/dL (Negative) 01/14/21 12:50 Urine Ketones 20 mg/dL (Negative) A 01/14/21 12:50 Urine Blood Negative (Negative) 01/14/21 12:50 Urine Nitrite Negative (Negative) 01/14/21 12:50 Urine Bilirubin Negative (Negative) 01/14/21 12:50 Urine Urobilinogen Normal mg/dL (Less than 2) 01/14/21 12:50 Ur Leukocyte Esterase Negative Bella/uL (Negative) 01/14/21 12:50 CT scan - head Status: image reviewed by me, report reviewed by me Additional Comments: CT HEAD WITHOUT CONTRAST: INDICATIONS: Weakness. States there is a history of breast cancer with brain metastasis. COMPARISON: There are no comparison studies. FINDINGS: Cortical volume loss. Ventricles have normal size and position. Abnormal white matter lucency in the periventricular white matter of both cerebral hemispheres is prominent for age and consistent with chronic ischemic white matter change. Focal lucency in the right cerebellar hemisphere suggests old cerebellar infarct. There is abnormal lucency in the subcortical white matter of the right occipital lobe with evidence of some mild volume loss. This suggests chronic ischemic change. Lucencies within the deep white matter in the centrum semiovale region could represent ischemic changes. There is focal volume loss in the cortex of the superior left frontal lobe, in the parasagittal region. Some of the lucency seen in the deep white matter and subcortical regions could represent treated metastatic disease, given the history. Comparison with old films would be of benefit. A follow-up MRI with and without contrast may also be of benefit. IMPRESSION: 1. 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 2. Prominent chronic white matter changes are noted. Consider follow-up MRI if there is concern of new brain metastasis. Chest x-ray Status: image reviewed by me, report reviewed by me Additional Comments: FRONTAL RADIOGRAPH CHEST: 01/14/21 9:23 a.m. HISTORY: Emergency exam. COMPARISON: None. FINDINGS: There are postoperative clips in the right axillary region. There is a CT injectable left-sided Port-A-Cath. No pneumothorax is noted. No focal consolidation or alveolar edema. There is subtle increased density in the left costophrenic angle with blunting of the left costophrenic angle, etiology/significance uncertain without comparison imaging. IMPRESSION: Mild increased density in the left costophrenic angle which could represent mild infiltrate, small volume pleural effusion, scar and/or underlying pulmonary nodule. Evaluation is limited without comparison imaging. 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 She is a full code. Should she be incapacitated her will be her medical decision-maker.
[2021-01-14] MEDS ORDERED: Zolpidem Tartrate 5 MG TAB PO PRN (18:30)
[2021-01-14] MEDS ORDERED: Senokot S 8.6-50 MG TAB PO PRN (18:30)
[2021-01-14] MEDS ORDERED: Acetaminophen 325 MG TAB PO PRN (18:30)
[2021-01-14] MEDS ORDERED: Ondansetron PF 4 MG/2 ML Vial IVP PRN (18:30)
[2021-01-14] MEDS ORDERED: Acetaminophen 650 MG Suppository PR PRN (18:30)
[2021-01-14] MEDS ORDERED: Guaifenesin DM 100-10/5 ML UDCUP PO PRN (18:30)
[2021-01-14] MEDS ORDERED: Loperamide HCl 2 MG CAP PO PRN (18:30)
[2021-01-14] MEDS ORDERED: Ondansetron ODT 4 MG TAB PO PRN (18:30)
[2021-01-14 18:51] LABS: ALT (SGPT) 62 U/L (8-55); AST (SGOT) 38 U/L (5-34); Albumin 3.1 g/dL (3.5-5.0); Alkaline Phosphatase 77 U/L (40-110); Anion Gap 15 mmol/L (10-20); BUN (Urea Nitrogen) 18 mg/dL (9.8-20.1); Bilirubin, Total 1.1 mg/dL (0.2-1.2); Calc. Creatinine Clearance 0 mL/min (70-130); Calcium 8.2 mg/dL (7.8-10.44); Carbon Dioxide 22 mmol/L (22-29); Chloride 100 mmol/L (98-107); Globulin 2.2 g/dL (2.4-3.5); Glucose 116 mg/dL (70-105); Potassium 3.3 mmol/L (3.5-5.1); Protein, Total 5.3 g/dL (6.0-8.3); Sodium 134 mmol/L (136-145)
[2021-01-14] MEDS ORDERED: Potassium Chloride 20 MEQ TAB PO SCH (19:00)
[2021-01-14 19:02] LABS: Troponin I 0.013 ng/mL (< 0.028)
[2021-01-14] MEDS: Famotidine 20 MG TAB PO SCH (20:15)
[2021-01-14] MEDS: Sodium Chloride 0.9% 1,000 ML IV SCH (20:15)
[2021-01-14] MEDS: HYDROcodone/Acetaminophen 5/325 mg Tablet PO PRN (20:16)
[2021-01-14 20:34] LABS: #Basophils 0.1 thou/uL (0.0-0.2); #Lymphocytes 0.8 thou/uL (1.20-3.40); #Monocytes 0.4 thou/uL (0.11-0.59); #Neutrophils 6.3 thou/uL (1.40-6.50); %Basophils 1.3 % (0.0-1.0); %Eosinophils 0.5 % (0.0-10.0); %Lymphocytes 10.4 % (21.0-51.0); %Neutrophils 82.8 % (42.0-75.0); Hemoglobin 11.1 g/dL (12.0-16.0); INR-International Normal Ratio 1.1; Mean Corpuscular HGB CONC 34.7 g/dL (32.0-36.0); Mean Corpuscular Hemoglobin 34.1 pg (27.0-31.0); Mean Corpuscular Volume 98.4 fL (78.0-98.0); Mean Platelet Volume 7.9 fL (7.4-10.4); Platelet Count 199 thou/uL (130-400); Prothrombin Time 13.9 sec (12.0-14.7); RBC Distribution Width 14.8 % (11.5-14.5); Red Blood Cell (RBC) Count 3.26 mill/uL (4.20-5.40); White Blood Cell (WBC) Count 7.6 thou/uL (4.8-10.8)
[2021-01-14 20:35] LABS: PTT 29.7 sec (22.9-36.1)
[2021-01-14] MEDS: Cyclobenzaprine 10 MG TAB PO PRN (21:07)
[2021-01-14 23:16] VITALS: BMI 19.8
[2021-01-15 06:00] LABS: #Eosinphils 0.1 thou/uL (0.0-0.7); #Lymphocytes 1.2 thou/uL (1.20-3.40); #Monocytes 0.4 thou/uL (0.11-0.59); #Neutrophils 4.5 thou/uL (1.40-6.50); %Basophils 0.1 % (0.0-1.0); %Eosinophils 1.4 % (0.0-10.0); %Lymphocytes 19.2 % (21.0-51.0); %Monocytes 6.5 % (0.0-10.0); %Neutrophils 72.8 % (42.0-75.0); Hemoglobin 9.8 g/dL (12.0-16.0); Mean Corpuscular HGB CONC 34.4 g/dL (32.0-36.0); Mean Corpuscular Volume 98.9 fL (78.0-98.0); Mean Platelet Volume 6.8 fL (7.4-10.4); Platelet Count 161 thou/uL (130-400); RBC Distribution Width 14.9 % (11.5-14.5); White Blood Cell (WBC) Count 6.2 thou/uL (4.8-10.8)
[2021-01-15 06:17] LABS: Anion Gap 14 mmol/L (10-20); BUN (Urea Nitrogen) 10 mg/dL (9.8-20.1); Calc. Creatinine Clearance 107 mL/min (70-130); Calcium 7.6 mg/dL (7.8-10.44); Carbon Dioxide 23 mmol/L (22-29); Chloride 105 mmol/L (98-107); Glucose 68 mg/dL (70-105); Sodium 139 mmol/L (136-145)
--- NOTE | 2021-01-15 07:50 | PDOC.HOSPP ---
- Subjective Encounter Date: 01/15/21 Encounter Time: 11:00 Subjective: Patient reports that the spasms improved a little bit with Flexeril last night. However this morning they are worse. She thought she did not get any Flexeril this morning but talking with the nurse she did get a dose. Patient is now having spasms of her shoulders as well. also notes that she is holding her neck in a strange position now. - Objective Vital Signs & Weight: Vital Signs (12 hours) Temp Pulse Resp BP Pulse Ox 01/15/21 07:15 98.0 F 67 16 106/62 96 01/15/21 04:00 97.5 F L 73 16 111/65 100 01/15/21 00:00 97.3 F L 73 16 102/66 100 Weight Weight 111 lb 9.6 oz Result Diagrams: 01/15/21 04:30 01/15/21 04:30 Hospitalist ROS - Review of Systems Constitutional: denies: fever, chills Respiratory: denies: cough, shortness of breath Cardiovascular: denies: chest pain, palpitations Gastrointestinal: denies: nausea, vomiting, abdominal pain - Medication Medications: Active Medications Generic Name Dose Route Start Last Admin Trade Name Freq PRN Reason Stop Dose Admin Hydrocodone Bitart/Acetaminophen 2 tab 01/14/21 18:30 01/14/21 20:16 Hydrocodone/Acetaminophen 5/325 Mg Tablet PO 2 tab Q4H PRN Administration Severe Pain (7-10) Cyclobenzaprine HCl 10 mg 01/14/21 18:32 01/14/21 21:07 Cyclobenzaprine 10 Mg Tab PO 10 mg TID PRN Administration Muscle Spasm Famotidine 20 mg 01/14/21 21:00 01/14/21 20:15 Famotidine 20 Mg Tab PO 20 mg BID ANTHONY Administration Sodium Chloride 1,000 mls @ 75 mls/hr 01/14/21 18:30 01/14/21 20:15 Normal Saline 0.9% IV 1,000 mls .[id number] ANTHONY Administration Hospitalist Exam Vitals: Vital Signs (12 hours) Temp Pulse Resp BP Pulse Ox 01/15/21 07:15 98.0 F 67 16 106/62 96 01/15/21 04:00 97.5 F L 73 16 111/65 100 01/15/21 00:00 97.3 F L 73 16 102/66 100 Weight Weight 111 lb 9.6 oz General Appearance: NAD, awake alert ENT: moist mucosa Heart: RRR, no murmur, no gallops, no rubs Respiratory: CTAB, no wheezes, no rales, no ronchi Gastrointestinal: soft, non-tender, non-distended, normal bowel sounds Neurological - other findings: Rhythmic spasms especially of the left shoulder and the lower extremities Psychiatric: normal affect, normal behavior, A&O x 3 Hosp A/P - Plan Muscle spasms and fasciculations of bilateral lower extremities and hands Concern for effect from metastatic disease to central nervous system versus side effect of chemotherapy agent, also possibly due to hypokalemia We will consult oncologyspoke with Dr. Paris who is on-call and with Dr. Aleman and both are stuck at home due to snow. Trying to get a hold of an oncol ogist who can see her today. We will try pain medication and muscle relaxants Physical and occupational therapy evaluation, patient may need rehabilitation I did discuss the patient with Dr. العراقي. She recommended trying Keppra 1 g loading followed by 750 mg twice a day. 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 Repeat oral dose of potassium Check magnesium levelvery low at 1.0. Will replete with IV and oral. Moderate protein calorie malnutrition Dietary consultation DVT prophylaxis: Lovenox subcu GI prophylaxis: Pepcid twice a day Disposition: PT evaluating the patient. She may end up needing rehab or SNF placement. If this is advance of her cancer then oncology can discuss with her prognosis and further treatment versus hospice.
[2021-01-15] MEDS ORDERED: Potassium Chloride 20 MEQ TAB PO SCH (08:00)
[2021-01-15] MEDS: Famotidine 20 MG TAB PO SCH ×2 (08:16→21:43)
[2021-01-15 08:56] LABS: SARS-CoV-2 NAA Rapid Test Not Detected (NotDetected)
[2021-01-15] MEDS: Cyclobenzaprine 10 MG TAB PO PRN ×2 (09:44→20:31)
[2021-01-15] MEDS ORDERED: Magnesium 2 GM/50 ML 2 GM in Premix Bag 1 BAG IVPB SCH (11:30)
[2021-01-15] MEDS ORDERED: levETIRAcetam in NS 1,000 MG in Premix Bag 1 BAG IVPB SCH (11:30)
[2021-01-15] MEDS: HYDROcodone/Acetaminophen 5/325 mg Tablet PO PRN ×2 (11:38→21:43)
[2021-01-15 14:19] LABS: Anion Gap 10 mmol/L (10-20); BUN (Urea Nitrogen) 8 mg/dL (9.8-20.1); Calc. Creatinine Clearance 102 mL/min (70-130); Calcium 7.5 mg/dL (7.8-10.44); Carbon Dioxide 24 mmol/L (22-29); Chloride 106 mmol/L (98-107); Glucose 92 mg/dL (70-105); Potassium 3.3 mmol/L (3.5-5.1); Sodium 137 mmol/L (136-145)
[2021-01-15] MEDS: Enoxaparin Sodium 40 MG/0.4 ML SYRINGE SC SCH (16:01)
[2021-01-15] MEDS: Sodium Chloride 0.9% 1,000 ML IV SCH (16:04)
--- NOTE | 2021-01-15 16:48 | CON ---
NEUROLOGY CONSULTATION DATE OF CONSULTATION: 01/15/2021 REASON FOR CONSULTATION: Painful muscle spasms. HISTORY OF PRESENT ILLNESS: Ms. Ana Trinh is a 55-year-old female with medical history significant for breast carcinoma, metastatic to the brain, followed by Dr. Aleman, presented to the emergency room with painful muscle spasms with some disorientation. The patient is somnolent and in pain, so history is taken from the at bedside. Per , she has a GTC seizure a week ago. After which, she was evaluated and discharged from the hospital without seizure medications. However, since Santos's Day, she started having painful muscle spasms, first in her upper extremity, then progressed to the lower extremity and whole-body, associated with confusion and sometime with head turning to one side. They were concerned that she may have a seizure, but she never had a generalized tonic-clonic seizure, which she previously had, but since the spasms became unbearable, they decided to bring her to the emergency room for further evaluation. Currently, she has been receiving subdural injection for chemotherapeutic agent for new metastasis. In the emergency room, CT scan was done, and she was found to be hyponatremia and hypokalemic. The patient does have nausea and painful muscle spasms, but denies focal weakness or focal paresthesias, but admits to generalized weakness. She denies shortness of breath, chest pain, recent illness, or recent exposure to COVID-19. REVIEW OF SYSTEMS: All systems reviewed and were negative except the pertinent positives and negatives mentioned in the HPI. Allergies/Adverse Reactions: Allergy/AdvReac Type Severity Reaction Status Date / Time codeine Allergy Intermediate Hives Verified 01/11/21 10:52 Penicillins Allergy Intermediate Hives Verified 01/11/21 10:52 Home Medications: Medication Instructions Recorded Confirmed Type Anastrozole [Arimidex] 1 mg PO DAILY 04/16/20 01/11/21 History Diphenoxylate HCl/Atropine 1 tab PO BID 12/01/20 01/11/21 History [Lomotil] Memantine HCl 10 mg PO BID 12/01/20 01/11/21 History Prochlorperazine Maleate 10 mg PO Q6H PRN 12/01/20 01/11/21 History Nystatin 5 ml SSW ACHS #300 ml 12/09/20 01/11/21 Rx Pantoprazole [Protonix] 40 mg PO BID #60 tab 12/09/20 01/11/21 Rx Propranolol [Inderal] 0.5 tab PO BID #0 12/09/20 01/11/21 Rx Acetaminophen [Acetaminophen Extra 1,000 mg PO Q6HR PRN 01/02/21 01/11/21 History Strength] Dexamethasone 4 mg PO DAILY 01/02/21 01/11/21 History Sucralfate [Carafate] 1 gm PO TID-WM 01/02/21 01/11/21 History Tucatinib [Tukysa] 6 tab PO BID 01/02/21 01/11/21 History PAST MEDICAL HISTORY: Invasive intraducatl right breast carcinoma, metastatic to the brain; hypertension. PAST SURGICAL HISTORY: Lumpectomy, hysterectomy, section. FAMILY HISTORY: Significant for heart disease. No family history of breast cancer or ovarian cancer. SOCIAL HISTORY: The patient is , lives with her and she has one child. Denies smoking or illegal drug use. She is a social drinker. Vital Signs & Weight: Vital Signs (12 hours) Temp Pulse Resp BP Pulse Ox 01/15/21 07:15 98.0 F 67 16 106/62 96 01/15/21 04:00 97.5 F L 73 16 111/65 100 01/15/21 00:00 97.3 F L 73 16 102/66 100 Weight Weight 111 lb 9.6 oz Active Medications Generic Name Dose Route Start Last Admin Trade Name Freq PRN Reason Stop Dose Admin Hydrocodone Bitart/Acetaminophen 2 tab 01/14/21 18:30 01/14/21 20:16 Hydrocodone/Acetaminophen 5/325 Mg Tablet PO 2 tab Q4H PRN Administration Severe Pain (7-10) Cyclobenzaprine HCl 10 mg 01/14/21 18:32 01/14/21 21:07 Cyclobenzaprine 10 Mg Tab PO 10 mg TID PRN Administration Muscle Spasm Famotidine 20 mg 01/14/21 21:00 01/14/21 20:15 Famotidine 20 Mg Tab PO 20 mg BID ANTHONY Administration Sodium Chloride 1,000 mls @ 75 mls/hr 01/14/21 18:30 01/14/21 20:15 Normal Saline 0.9% IV 1,000 mls .[id number] ANTHONY Administration PHYSICAL EXAMINATION: General Appearance: NAD, awake alert General - other findings: Thin and frail appearing Eye: PERRL, anicteric sclera ENT: normocephalic atraumatic, no oropharyngeal lesions, moist mucosa Neck: supple, symmetric, no JVD, no thyromegaly, no lymphadenopathy Heart: RRR, no murmur, no gallops, no rubs, normal peripheral pulses Respiratory: CTAB, no wheezes, no rales, no ronchi, normal chest expansion, no tachypnea Gastrointestinal: soft, non-tender, non-distended, normal bowel sounds, no palpable masses, no hepatomegaly, no splenomegaly, no guarding, no rigidity Extremities: no cyanosis, no clubbing, no edema Skin: normal turgor, no lesions, no rashes Neurological: Mental status, the patient is alert and oriented to person, place, and time. Speech is clear. Cranial nerves 2 through 12 intact. Motor, muscle tone is normal. Bulk is decreased. Generalized weakness. Moving all 4 extremities equally and symmetrically. Cerebellar, finger-nose testing intact. Gait deferred due to the patient's safety reason . DATA REVIEWED: Laboratory Last Values Urine Color Light-Yellow (Yellow) 01/14/21 12:50 Urine Clarity Clear (Clear) 01/14/21 12:50 Urine pH 6.5 (5.0-9.0) 01/14/21 12:50 Ur Specific [place] 1.011 (1.002-1.036) 01/14/21 12:50 Urine Protein 10 mg/dL (Neg-Trace) 01/14/21 12:50 Urine Glucose (UA) Normal mg/dL (Negative) 01/14/21 12:50 Urine Ketones 20 mg/dL (Negative) A 01/14/21 12:50 Urine Blood Negative (Negative) 01/14/21 12:50 Urine Nitrite Negative (Negative) 01/14/21 12:50 Urine Bilirubin Negative (Negative) 01/14/21 12:50 Urine Urobilinogen Normal mg/dL (Less than 2) 01/14/21 12:50 Ur Leukocyte Esterase Negative Bella/uL (Negative) 01/14/21 12:50 CT scan - head Status: image reviewed by me, report reviewed by me Additional Comments: CT HEAD WITHOUT CONTRAST: INDICATIONS: Weakness. States there is a history of breast cancer with brain metastasis. COMPARISON: There are no comparison studies. FINDINGS: Cortical volume loss. Ventricles have normal size and position. Abnormal white matter lucency in the periventricular white matter of both cerebral hemispheres is prominent for age and consistent with chronic ischemic white matter change. Focal lucency in the right cerebellar hemisphere suggests old cerebellar infarct. There is abnormal lucency in the subcortical white matter of the right occipital lobe with evidence of some mild volume loss. This suggests chronic ischemic change. Lucencies within the deep white matter in the centrum semiovale region could represent ischemic changes. There is focal volume loss in the cortex of the superior left frontal lobe, in the parasagittal region. Some of the lucency seen in the deep white matter and subcortical regions could represent treated metastatic disease, given the history. Comparison with old films would be of benefit. A follow-up MRI with and without contrast may also be of benefit. IMPRESSION: 1. 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 2. Prominent chronic white matter changes are noted. Consider follow-up MRI if there is concern of new brain metastasis. Chest x-ray Status: image reviewed by me, report reviewed by me Additional Comments: FRONTAL RADIOGRAPH CHEST: 01/14/21 9:23 a.m. HISTORY: Emergency exam. COMPARISON: None. FINDINGS: There are postoperative clips in the right axillary region. There is a CT injectable left-sided Port-A-Cath. No pneumothorax is noted. No focal consolidation or alveolar edema. There is subtle increased density in the left costophrenic angle with blunting of the left costophrenic angle, etiology/significance uncertain without comparison imaging. IMPRESSION: Mild increased density in the left costophrenic angle which could represent mild infiltrate, small volume pleural effusion, scar and/or underlying pulmonary nodule. ASSESSMENT AND PLAN: Ms. Ana Trinh is a 55-year-old female, who presented with painful muscle spasm, associated with confusion and disorientation. The patient did have a seizure. The patient also has a recent history of generalized tonic-clonic seizure. Consider the trial of Keppra, which has been shown to help with muscle spasms. Load with 1 g Keppra IV and then start on 750 mg IV q.12. She had MRI of the brain on 12/28/2020, which showed large right temporal parieto-occipital region of moderately restricted diffusion and vasogenic edema, which may raise a suspicion for underlying seizure focus. Consider followup MRI of the brain with contrast. Also consider EEG to evaluate for underlying cortical irritability. Neuro checks every 4 hours. Observe seizure precautions. Ativan 2 mg IV for seizure greater than 2 minutes. Continue Flexeril for painful muscle spasms. Consider Oncology input regarding further management of metastatic breast carcinoma. Continue medical management per primary team. Plan discussed in detail with the patient, at bedside, and also with the primary attending, Dr. Unger. We will continue to follow. Thank you for the consult. Job ID: [id number] MTDD
[2021-01-15] MEDS: levETIRAcetam 500 MG TAB PO SCH (21:42)
[2021-01-15] MEDS: Magnesium Oxide 400 MG TAB PO SCH (21:42)
[2021-01-15] MEDS: Dexamethasone 4 mg/ml Vial SLOW IVP SCH (22:01)
[2021-01-16] MEDS: Cyclobenzaprine 10 MG TAB PO PRN ×3 (04:17→21:20)
[2021-01-16] MEDS: Sodium Chloride 0.9% 1,000 ML IV SCH ×3 (04:17→19:08)
[2021-01-16 05:03] LABS: #Lymphocytes 0.6 thou/uL (1.20-3.40); #Monocytes 0.1 thou/uL (0.11-0.59); #Neutrophils 9.7 thou/uL (1.40-6.50); %Basophils 0.1 % (0.0-1.0); %Eosinophils 0.1 % (0.0-10.0); %Lymphocytes 5.9 % (21.0-51.0); %Monocytes 1.2 % (0.0-10.0); %Neutrophils 92.7 % (42.0-75.0); Mean Corpuscular HGB CONC 34.7 g/dL (32.0-36.0); Mean Corpuscular Hemoglobin 35.2 pg (27.0-31.0); Mean Platelet Volume 6.7 fL (7.4-10.4); Platelet Count 140 thou/uL (130-400); RBC Distribution Width 14.8 % (11.5-14.5); Red Blood Cell (RBC) Count 2.83 mill/uL (4.20-5.40); White Blood Cell (WBC) Count 10.4 thou/uL (4.8-10.8)
[2021-01-16 05:10] LABS: Anion Gap 10 mmol/L (10-20); BUN (Urea Nitrogen) 6 mg/dL (9.8-20.1); Calc. Creatinine Clearance 107 mL/min (70-130); Calcium 7.6 mg/dL (7.8-10.44); Carbon Dioxide 25 mmol/L (22-29); Chloride 106 mmol/L (98-107); Glucose 125 mg/dL (70-105); Potassium 3.6 mmol/L (3.5-5.1); Sodium 137 mmol/L (136-145)
[2021-01-16] MEDS: Dexamethasone 4 mg/ml Vial SLOW IVP SCH ×3 (05:30→21:19)
--- NOTE | 2021-01-16 06:33 | CON ---
DATE OF CONSULTATION: 01/15/2021 HISTORY OF PRESENT ILLNESS: Ms. Trinh is a 55-year-old female with a history of metastatic HER2 positive breast cancer with known brain metastases. She recently failed treatment with Xeloda and tucatinib, she progressed in November of 2020. At that time, she had a seizure and was taken off the treatment. She was started on intrathecal Herceptin 2 weeks ago and was supposed to receive her 3rd dose on the day of admission here. Unfortunately, the day prior to admission, she had increasing spasms in both her arms and legs as well as some truncal muscle spasms that were not controllable. She eventually presented to the emergency room, at which time her said she was unable to walk or ambulate even to the restroom. She was admitted for further workup. She did not miss any doses of her antiseizure medication. She was walking to the bathroom with minimal assistance just 36 hours prior to these spasms and probable seizures. Today, she complains of being extremely weak. She has also noticed some memory issues over the last month. She states she can barely hold her trunk up to sit up straight and is having difficulty feeding herself. She has notable worsening left-sided weakness. PAST MEDICAL HISTORY: 1. Known metastatic breast cancer with brain metastases, HER2 positive. 2. Hypertension. CURRENT MEDICATIONS: 1. Tylenol p.r.n. 2. [place] p.r.n. 3. Flexeril 10 mg p.o. t.i.d. p.r.n. 4. Lovenox 40 mg subcu daily. 5. Pepcid 20 mg p.o. b.i.d. 6. Robitussin DM 15 mL p.o. q.4 hours p.r.n. 7. Keppra 750 mg p.o. b.i.d., started on this admission. 8. Imodium p.r.n. 9. Magnesium oxide 400 mg p.o. b.i.d. 10. Zofran 4 mg p.o. q.6 hours p.r.n. 11. Zofran 4 mg IV q.6 hours p.r.n. 12. Senokot p.r.n. 13. Ambien 5 mg p.o. at bedtime p.r.n. ALLERGIES: CODEINE AND PENICILLIN. SOCIAL HISTORY: She lives in [place] and is here with her who is quite supportive. She has one child and 4 grandchildren. She denies tobacco use and no recent alcohol use. FAMILY HISTORY: No history of breast or ovarian cancer. REVIEW OF SYSTEMS: Otherwise, 10-point review of systems is negative. Please see the history of present illness. PHYSICAL EXAMINATION: VITAL SIGNS: Temperature 98.0, pulse 88, respirations 16 to 18, O2 saturation 98% on room air, blood pressure 114/54. GENERAL: She is alert, awake, and oriented x3, but is quite sleepy during the interview. HEENT: Extraocular muscles are intact. Pupils are equal, round, and reactive to light. She has no oral cavity lesions. Her mucous membranes are dry. NECK: Supple without lymphadenopathy. CARDIOVASCULAR: Regular rhythm. LUNGS: Clear to auscultation. ABDOMEN: Hypoactive bowel sounds. Soft, nontender, and nondistended. EXTREMITIES: No edema. NEUROLOGIC: Her left hand flexor and abductor muscle is much weaker than the right. Both legs are weak with the left greater than the right. LABORATORY DATA: White blood cell count 6.2, hemoglobin 9.8, platelets 161. INR 1.1. Sodium 137, potassium 3.3, chloride 106, CO2 of 24, BUN 8, creatinine 0.49, glucose 92, calcium 7.5, total protein 5.3, albumin 3.1. IMAGING STUDIES: Brain CT done on this admission on January 14, 2021, shows chronic ischemic changes with evidence of old infarcts as well as prominent chronic white matter changes noted. Bone scan done prior to this admission shows no evidence of osseous metastatic disease. CT of the chest, abdomen, and pelvis done just prior to this admission shows small right pleural effusion, but no other evidence in the lungs of infiltrate or vascular congestion. CT of the chest is stable. The liver, spleen, and pancreas are unremarkable. No liver or abdominal metastases seen. Brain MRI done on December 28, 2020, two weeks prior to this admission shows a large right temporoparietal occipital region moderately restricted diffusion representing postictal changes rather than a large acute infarction. There has been mild interval increase in size and vasogenic edema surrounding many or most of the numerous cerebral and cerebellar metastatic brain lesions when compared to the brain MRI on October 04. ASSESSMENT: Ms. Trinh is a 55-year-old female with, 1. Known metastatic breast cancer to brain, HER2 positive, having recently failed standard chemotherapy with tucatinib. 2. Progression of seizure activity in the last 3 to 4 days causing this hospitalization. 3. Weakness and fatigue with poor muscle strength secondary to the above. 4. Memory loss secondary to above. PLAN: 1. She has already been started on Keppra on this hospitalization. I would recommend that we continue this. Continue benzodiazepines as necessary, but hopefully we can wean this off as they may be contributing to some of the muscle weakness. 2. I would recommend that we get an MRI of the brain if possible and consider restarting steroids. 3. We discussed that the overall prognosis is poor and that this could be caused from the intrathecal treatment or progression of disease. Her does understand this and Dr. Aleman will be back later in the week to discuss this with them further. I would recommend that if the seizures are well controlled by the neurologist's recommendations that we move forward with physical therapy, but if the seizures are not under control, then we will have to discuss hospice and other interventions. We will leave this up to Dr. Aleman to discuss when he returns. Thank you very much for this consult. Job ID: [id number]
[2021-01-16] MEDS: Famotidine 20 MG TAB PO SCH ×2 (10:01→21:19)
[2021-01-16] MEDS: levETIRAcetam 500 MG TAB PO SCH (10:01)
[2021-01-16] MEDS: Magnesium Oxide 400 MG TAB PO SCH ×2 (10:01→21:19)
[2021-01-16] MEDS: Enoxaparin Sodium 40 MG/0.4 ML SYRINGE SC SCH (10:02)
[2021-01-16] MEDS: HYDROcodone/Acetaminophen 5/325 mg Tablet PO PRN ×2 (10:02→19:11)
--- NOTE | 2021-01-16 11:10 | PDOC.HOSPP ---
- Subjective Encounter Date: 01/16/21 Encounter Time: 14:00 Subjective: Patient with less jerking of her extremities and shoulder today. Tired currently because she just got finished with occupational therapy. No generalized seizure activity. - Objective Vital Signs & Weight: Vital Signs (12 hours) Temp Pulse Resp BP Pulse Ox 01/16/21 08:00 96.4 F L 80 16 110/70 94 L Weight Admit Weight 111 lb 9.6 oz Weight 111 lb 9.6 oz I&O: 01/15/21 01/16/21 01/17/21 06:59 06:59 06:59 Intake Total 1080 Balance 1080 Result Diagrams: 01/16/21 04:30 01/16/21 04:30 Hospitalist ROS - Review of Systems Constitutional: reports: weakness. denies: fever, chills Respiratory: denies: cough, shortness of breath Cardiovascular: denies: chest pain, palpitations Gastrointestinal: denies: nausea, vomiting, abdominal pain - Medication Medications: Active Medications Generic Name Dose Route Start Last Admin Trade Name Freq PRN Reason Stop Dose Admin Hydrocodone Bitart/Acetaminophen 2 tab 01/14/21 18:30 01/16/21 10:02 Hydrocodone/Acetaminophen 5/325 Mg Tablet PO 2 tab Q4H PRN Administration Severe Pain (7-10) Cyclobenzaprine HCl 10 mg 01/14/21 18:32 01/16/21 04:17 Cyclobenzaprine 10 Mg Tab PO 10 mg TID PRN Administration Muscle Spasm Dexamethasone 4 mg 01/15/21 22:00 01/16/21 05:30 Dexamethasone 4 Mg/Ml Vial SLOW IVP 4 mg Q8HR ANTHONY Administration Enoxaparin Sodium 40 mg 01/15/21 09:00 01/16/21 10:02 Enoxaparin Sodium 40 Mg/0.4 Ml Syringe SC 40 mg 0900 ANTHONY Administration Famotidine 20 mg 01/14/21 21:00 01/16/21 10:01 Famotidine 20 Mg Tab PO 20 mg BID ANTHONY Administration Sodium Chloride 1,000 mls @ 75 mls/hr 01/14/21 18:30 01/16/21 04:17 Normal Saline 0.9% IV 1,000 mls .[id number] ANTHONY Administration Levetiracetam 750 mg 01/15/21 21:00 01/16/21 10:01 Levetiracetam 500 Mg Tab PO 750 mg BID ANTHONY Administration Magnesium Oxide 400 mg 01/15/21 21:00 01/16/21 10:01 Magnesium Oxide 400 Mg Tab PO 400 mg BID ANTHONY Administration Hospitalist Exam Vitals: Vital Signs (12 hours) Temp Pulse Resp BP Pulse Ox 01/16/21 08:00 96.4 F L 80 16 110/70 94 L Weight Admit Weight 111 lb 9.6 oz Weight 111 lb 9.6 oz General Appearance: NAD, awake alert General - other findings: Weak appearing ENT: moist mucosa Heart: RRR, no murmur, no gallops, no rubs Respiratory: CTAB, no wheezes, no rales, no ronchi Gastrointestinal: soft, non-tender, non-distended, normal bowel sounds Neurological - other findings: Mild jerking of left lower extremity, none of shoulder or hands currently Psychiatric: normal affect, normal behavior, A&O x 3 Hosp A/P - Plan Muscle spasms and fasciculations of bilateral lower extremities and hands secondary to seizure activity Patient had a seizure last month. Now she is having continued partial seizure activity. Started on Keppra. EEG showing frequent spikes in the right parasagittal region per Dr. العراقي. Will increase Keppra to 1500 mg IV every 12 hours per her recommendations. 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 Schuler did see the patient for Dr. Aleman. Recommends rehab if able to control seizure activity, otherwise may need to look at hospice. Dr. Aleman to discuss further with the patient when he returns later this week. We will consult palliative care once they are available. Essential hypertension Blood pressure adequate at this point We will resume home medications and monitor Hypokalemia and hypomagnesemia Improved with IV and oral replacement. Moderate protein calorie malnutrition Dietary consultation DVT prophylaxis: Lovenox subcu GI prophylaxis: Pepcid twice a day Disposition: PT evaluating the patient. She may end up needing rehab or SNF placement if can get seizure activity under control. If not she may need ho spice.
[2021-01-16] MEDS ORDERED: levETIRAcetam in NS 750 MG in Premix Bag 1 BAG IVPB SCH (11:15)
--- NOTE | 2021-01-16 11:27 | PDOC.EEG ---
Neurology EEG Report - Report Report: This EEG was performed using 24 channel [employer] video digital EEG machine with 24 disc electrodes. This was an extended 2 hours 15 minutes of inpatient video EEG recording. Digital analysis of the EEG was done for Kev and seizure detection which revealed abnormalities. Background: There is a nonsustained posterior background rhythm not observed Hyperventilation: Not performed Photic stimulation: No significant response Sleep: Drowsiness and sleep are observed EEG diagnosis: Intermittent irregular theta activity intermixed with frequent sharps in the right parieto-occipital and midline regions. 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 Critical Findings were communicated to the primary attending Dr. Unger.
--- NOTE | 2021-01-16 11:35 | PDOC.BPN ---
- Brief Progress Note Patient has grossly abnormal EEG with frequent spikes in the right para-sagittal regions which can cause painful paraesthesias due to cortical irritabilty of the parietal lobe. She was started on Keppra yesterday. Increase Keppra to 1500 mg po bid. Consider adding Gabapentin 100 mg tid Neurochecks every 4 hours. Observe seizure precautions. Ativan 2 mg IV for seizure greater than 2 minutes. Results and recommendations were communicated to the primary attending Dr. Unger via [employer].
[2021-01-16] MEDS: levETIRAcetam in NS 1,500 MG in Premix Bag 1 BAG IVPB SCH (21:19)
[2021-01-17] MEDS: Cyclobenzaprine 10 MG TAB PO PRN ×3 (05:43→21:01)
[2021-01-17] MEDS: Dexamethasone 4 mg/ml Vial SLOW IVP SCH ×3 (05:43→21:01)
[2021-01-17 06:13] LABS: Anion Gap 10 mmol/L (10-20); BUN (Urea Nitrogen) 7 mg/dL (9.8-20.1); Calc. Creatinine Clearance 100 mL/min (70-130); Carbon Dioxide 25 mmol/L (22-29); Chloride 107 mmol/L (98-107); Glucose 156 mg/dL (70-105); Magnesium 1.4 mg/dL (1.6-2.6); Potassium 3.4 mmol/L (3.5-5.1); Sodium 139 mmol/L (136-145)
[2021-01-17] MEDS: HYDROcodone/Acetaminophen 5/325 mg Tablet PO PRN (09:16)
[2021-01-17] MEDS: Famotidine 20 MG TAB PO SCH ×2 (09:16→21:01)
[2021-01-17] MEDS: Enoxaparin Sodium 40 MG/0.4 ML SYRINGE SC SCH (09:16)
[2021-01-17] MEDS: Magnesium Oxide 400 MG TAB PO SCH ×2 (09:16→21:01)
[2021-01-17] MEDS: levETIRAcetam in NS 1,500 MG in Premix Bag 1 BAG IVPB SCH ×2 (09:16→21:01)
[2021-01-17] MEDS: Sodium Chloride 0.9% 1,000 ML IV SCH (09:23)
--- NOTE | 2021-01-17 13:31 | PDOC.MOPN ---
Interval History: more alert, but weak. pain controlled. - Vital Signs Vital Signs: Vital Signs (12 hours) Temp Pulse Resp BP Pulse Ox 01/17/21 09:15 100 01/17/21 08:00 97.9 F 73 18 118/75 100 Weight Admit Weight 111 lb 9.6 oz Weight 111 lb 9.6 oz - Physical Exam General: Alert Lungs: Clear to auscultation Cardiovascular: Regular rate Abdomen: Normal bowel sounds Neurological: Normal speech - Labs Result Diagrams: 01/16/21 04:30 01/17/21 05:42 Lab results: Laboratory Results - last 24 hr 01/17/21 05:42: Sodium 139, Potassium 3.4 L, Chloride 107, Carbon Dioxide 25, Anion Gap 10, BUN 7 L, Creatinine 0.50 L, Estimated GFR (MDRD) Greater than 90, Glucose 156 H, Calcium 8.0, Magnesium 1.4 L Status: lab reviewed by me A/P - Problem (1) Brain metastases Current Visit: No Code(s): C79.31 - SECONDARY MALIGNANT NEOPLASM OF BRAIN Status: Chronic (2) Breast cancer Current Visit: No Status: Chronic - Plan Plan: continue pain meds and supportive care. continue seizure meds and steroids.
--- NOTE | 2021-01-17 14:13 | PDOC.EEG ---
Neurology EEG Report - Report Report: This EEG was performed using 24 channel [employer] video digital EEG machine with 24 disc electrodes. This was an extended 2 hours 5 minutes of inpatient video EEG recording. Digital analysis of the EEG was done for Kev and seizure detection which revealed abnormalities. Background: The posterior background rhythm is not observed Hyperventilation: Not performed Photic stimulation: No significant response Sleep: Drowsiness and sleep are observed EEG diagnosis: Intermittent irregular theta activity intermixed with occasional sharps in the right parieto-occipital and midline regions. 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 There is interval improvement since the prior study.
--- NOTE | 2021-01-17 14:14 | PDOC.MOPN ---
Interval History: stronger but still too weak to get to the bathroom, L side still weak - Vital Signs Vital Signs: Vital Signs (12 hours) Temp Pulse Resp BP Pulse Ox 01/17/21 09:15 100 01/17/21 08:00 97.9 F 73 18 118/75 100 Weight Admit Weight 111 lb 9.6 oz Weight 111 lb 9.6 oz - Physical Exam General: Alert Lungs: Clear to auscultation Cardiovascular: Regular rate Abdomen: Normal bowel sounds Skin: No breakdown Neurological: Other (L arm and leg weak) Psych/Mental Status: Mental status NL - Labs Result Diagrams: 01/16/21 04:30 01/17/21 05:42 Lab results: Laboratory Results - last 24 hr 01/17/21 05:42: Sodium 139, Potassium 3.4 L, Chloride 107, Carbon Dioxide 25, Anion Gap 10, BUN 7 L, Creatinine 0.50 L, Estimated GFR (MDRD) Greater than 90, Glucose 156 H, Calcium 8.0, Magnesium 1.4 L A/P - Plan Plan: we had a long discussion regarding prognosis. They understand if she wants to stop treatment and go home with hospice she could go home soon but if she wants to push forward with IT herceptin she will likely need rehab and PT. they will discuss these things and talk with Dr. Aleman tomorrow.
--- NOTE | 2021-01-17 14:16 | PDOC.NEUPN ---
- Subjective Encounter Date: 01/17/21 Subjective: Mrs. Trinh is doing much better today and painful muscle spasms are under control with the initiation of Keppra. at bedside. - Objective Vital Signs & Weight: Vital Signs (12 hours) Temp Pulse Resp BP Pulse Ox 01/17/21 09:15 100 01/17/21 08:00 97.9 F 73 18 118/75 100 Weight Admit Weight 111 lb 9.6 oz Weight 111 lb 9.6 oz I&O: 01/16/21 01/17/21 01/18/21 06:59 06:59 06:59 Intake Total 1000 950 Balance 1000 950 Result Diagrams: 01/16/21 04:30 01/17/21 05:42 Radiology Reviewed by me: Yes EKG Reviewed by me: Yes ROS - Review of Systems Constitutional: denies: fever, chills, sweats, weakness, malaise, other Respiratory: denies: cough, dry, shortness of breath, hemoptysis, SOB with excertion, pleuritic pain, sputum, wheezing, other Gastrointestinal: denies: nausea, vomiting, abdominal pain, diarrhea, constipation, melena, hematochezia, other Musculoskeletal: reports: leg pain Neurological: reports: weakness (Left-sided weakness), numbness, seizures - Medication Medications: Active Medications Generic Name Dose Route Start Last Admin Trade Name Freq PRN Reason Stop Dose Admin Hydrocodone Bitart/Acetaminophen 2 tab 01/14/21 18:30 01/17/21 09:16 Hydrocodone/Acetaminophen 5/325 Mg Tablet PO 2 tab Q4H PRN Administration Severe Pain (7-10) Cyclobenzaprine HCl 10 mg 01/14/21 18:32 01/17/21 13:04 Cyclobenzaprine 10 Mg Tab PO 10 mg TID PRN Administration Muscle Spasm Dexamethasone 4 mg 01/15/21 22:00 01/17/21 13:04 Dexamethasone 4 Mg/Ml Vial SLOW IVP 4 mg Q8HR ANTHONY Administration Enoxaparin Sodium 40 mg 01/15/21 09:00 01/17/21 09:16 Enoxaparin Sodium 40 Mg/0.4 Ml Syringe SC 40 mg 0900 ANTHONY Administration Famotidine 20 mg 01/14/21 21:00 01/17/21 09:16 Famotidine 20 Mg Tab PO 20 mg BID ANTHONY Administration Sodium Chloride 1,000 mls @ 75 mls/hr 01/14/21 18:30 01/17/21 09:23 Normal Saline 0.9% IV 1,000 mls .[id number] ANTHONY Administration Levetiracetam 1,500 mg/ Device 100 mls @ 200 mls/hr 01/16/21 21:00 01/17/21 09:16 IVPB 100 mls BID ANTHONY Administration Magnesium Oxide 400 mg 01/15/21 21:00 01/17/21 09:16 Magnesium Oxide 400 Mg Tab PO 400 mg BID ANTHONY Administration - Exam General Appearance: awake alert Eye: PERRL ENT: normocephalic atraumatic Neck: supple Respiratory: CTAB Cardiovascular: RRR Gastrointestinal: soft Extremities: no cyanosis Neurological: no new deficit Neurological - other findings: Left hemiparesis Musculoskeletal: generalized weakness PSYCH: normal affect, normal behavior, A&O x 3 Results - Labs Result Diagrams: 01/16/21 04:30 01/17/21 05:42 Lab results: WBC 10.4 thou/uL (4.8-10.8) 01/16/21 04:30 Hgb 10.0 g/dL (12.0-16.0) L 01/16/21 04:30 Hct 28.7 % (36.0-47.0) L 01/16/21 04:30 MCV 101.0 fL (78.0-98.0) H 01/16/21 04:30 Plt Count 140 thou/uL (130-400) 01/16/21 04:30 Neutrophils % 92.7 % (42.0-75.0) H 01/16/21 04:30 Sodium 139 mmol/L (136-145) 01/17/21 05:42 Potassium 3.4 mmol/L (3.5-5.1) L 01/17/21 05:42 Chloride 107 mmol/L (98-107) 01/17/21 05:42 Carbon Dioxide 25 mmol/L (22-29) 01/17/21 05:42 BUN 7 mg/dL (9.8-20.1) L 01/17/21 05:42 Creatinine 0.50 mg/dL (0.6-1.1) L 01/17/21 05:42 Glucose 156 mg/dL (70-105) H 01/17/21 05:42 Calcium 8.0 mg/dL (7.8-10.44) 01/17/21 05:42 Total Bilirubin 1.1 mg/dL (0.2-1.2) 01/14/21 09:40 AST 38 U/L (5-34) H 01/14/21 09:40 ALT 62 U/L (8-55) H 01/14/21 09:40 Alkaline Phosphatase 77 U/L (40-110) 01/14/21 09:40 Troponin I 0.013 ng/mL (< 0.028) 01/14/21 12:50 Serum Total Protein 5.3 g/dL (6.0-8.3) L 01/14/21 09:40 Albumin 3.1 g/dL (3.5-5.0) L 01/14/21 09:40 Urine Ketones 20 mg/dL (Negative) A 01/14/21 12:50 Urine Blood Negative (Negative) 01/14/21 12:50 Urine Nitrite Negative (Negative) 01/14/21 12:50 Ur Leukocyte Esterase Negative Bella/uL (Negative) 01/14/21 12:50 - Radiology Interpretation MRI - head Additional Comment: MRI of the brain from 12/28/2020 reviewed. It was consistent with metastatic brain disease. PN A/P - Plan Daily Plan: PT/OT, speech therapy, DVT proph w/SCDs Mrs. Trinh is a 55-year-old female with history significant for breast carcinoma with metastasis to the brain presented with painful muscle twitching with altered mental status. Today's EEG reviewed which showed improvement in the epileptiform discharges after the initiation of Keppra. Continue Keppra 1500 mg p.o. twice daily EEG showed frequent spikes in the right para-sagittal regions which can cause painful paraesthesias due to cortical irritabilty of the parietal lobe. She was started on Keppra and the dose was subsequently increased to Keppra to 1500 mg po bid yesterday which did improve her symptoms Consider adding Gabapentin 100 mg tid Neurochecks every 4 hours. Observe seizure precautions. Ativan 2 mg IV for seizure greater than 2 minutes MRI of the brain reviewed which was done on 12/28/2020 which was consistent with metastatic brain disease. There is also a large area of restricted diffusion in the large temporoparietal and occipital region which was considered as post ictal focus rather than subacute infarction. Patient's EEG is consistent with right parasagittal region spikes. Consider MRI of the brain with contrast again to follow-up on the lesion which is most likely the left epileptogenic focus. Continue home medications. Continue medical management per primary team and oncology. DVT prophylaxis PT/OT/speech Plan discussed in detail with the patient and the at the bedside
--- NOTE | 2021-01-17 16:13 | PDOC.HOSPP ---
- Subjective Encounter Date: 01/17/21 Subjective: Patient reports feeling much better compared to yesterday, but continues to report twitching of her left upper extremity. - Objective Vital Signs & Weight: Vital Signs (12 hours) Temp Pulse Resp BP Pulse Ox 01/17/21 09:15 100 01/17/21 08:00 97.9 F 73 18 118/75 100 Weight Admit Weight 111 lb 9.6 oz Weight 111 lb 9.6 oz I&O: 01/16/21 01/17/21 01/18/21 06:59 06:59 06:59 Intake Total 1000 950 Balance 1000 950 Result Diagrams: 01/16/21 04:30 01/17/21 05:42 Hospitalist ROS - Medication Medications: Active Medications Generic Name Dose Route Start Last Admin Trade Name Freq PRN Reason Stop Dose Admin Hydrocodone Bitart/Acetaminophen 2 tab 01/14/21 18:30 01/17/21 09:16 Hydrocodone/Acetaminophen 5/325 Mg Tablet PO 2 tab Q4H PRN Administration Severe Pain (7-10) Cyclobenzaprine HCl 10 mg 01/14/21 18:32 01/17/21 13:04 Cyclobenzaprine 10 Mg Tab PO 10 mg TID PRN Administration Muscle Spasm Dexamethasone 4 mg 01/15/21 22:00 01/17/21 13:04 Dexamethasone 4 Mg/Ml Vial SLOW IVP 4 mg Q8HR ANTHONY Administration Enoxaparin Sodium 40 mg 01/15/21 09:00 01/17/21 09:16 Enoxaparin Sodium 40 Mg/0.4 Ml Syringe SC 40 mg 0900 ANTHONY Administration Famotidine 20 mg 01/14/21 21:00 01/17/21 09:16 Famotidine 20 Mg Tab PO 20 mg BID ANTHONY Administration Sodium Chloride 1,000 mls @ 75 mls/hr 01/14/21 18:30 01/17/21 09:23 Normal Saline 0.9% IV 1,000 mls .[id number] ANTHONY Administration Levetiracetam 1,500 mg/ Device 100 mls @ 200 mls/hr 01/16/21 21:00 01/17/21 09:16 IVPB 100 mls BID ANTHONY Administration Magnesium Oxide 400 mg 01/15/21 21:00 01/17/21 09:16 Magnesium Oxide 400 Mg Tab PO 400 mg BID ANTHONY Administration Hospitalist Exam Vitals: Vital Signs (12 hours) Temp Pulse Resp BP Pulse Ox 01/17/21 09:15 100 01/17/21 08:00 97.9 F 73 18 118/75 100 Weight Admit Weight 111 lb 9.6 oz Weight 111 lb 9.6 oz General Appearance: NAD Eye: PERRL, anicteric sclera ENT: normocephalic atraumatic, no oropharyngeal lesions Neck: supple, symmetric, no JVD Heart: RRR, no murmur, no gallops Respiratory: CTAB, no wheezes, no rales Gastrointestinal: soft, non-tender, non-distended Extremities: no cyanosis, no clubbing, no edema Skin: normal turgor Neurological: cranial nerve grossly intact, hemiplegia (She is weaker on the left upper and left lower extremity, she is able to lift her limbs against gravity and slightly against resistance.) Hosp A/P (1) Brain metastases Code(s): C79.31 - SECONDARY MALIGNANT NEOPLASM OF BRAIN Status: Chronic (2) Breast cancer Status: Chronic (3) Seizure Code(s): R56.9 - UNSPECIFIED CONVULSIONS Status: Acute - Plan This is a patient that is known to have breast cancer undergoing intrathecal Herceptin treatment, he was admitted for increasing spasm in both arms and legs and trunk, she was already on antiseizure medications (Keppra). Neurology----patient was seen by neurology, EEG was done it was abnormal, and her Keppra dose was increased. She seems to be responding to that but continues to have twitching of her left upper extremity, but states that the spasms are much better and she is able to work with physical therapy although still very weak. Her left side is weaker than the right side this developed recently upon her admission. She continues to be on IV Decadron. Patient had an MRI in the November , she possibly needs a follow-up MRI of the brain, will touch base with oncology at some point. Oncology--she is known to have metastatic breast cancer to the brain thought to be causing her seizures. Oncology is following and discussion were made about possible hospice versus rehab. Tomorrow patient and her will have further discussions with Dr. Aleman. Palliative care was consulted. GI--- patient is malnourished, dietary was consulted. Renal--- patient's potassium and magnesium are low although better than yester day, will replace those intravenously and will increase the dose of her maintenance magnesium, possibly also starting her on maintenance potassium. We will check her phosphorus level in a.m Patient continues to be on Lovenox subcutaneously for DVT prophylaxis.
[2021-01-17] MEDS ORDERED: Potassium Chloride 20 MEQ in Premix Bag 1 BAG IVPB SCH (17:15)
[2021-01-18] MEDS: Dexamethasone 4 mg/ml Vial SLOW IVP SCH ×3 (05:14→22:08)
[2021-01-18] MEDS: Cyclobenzaprine 10 MG TAB PO PRN ×3 (05:14→20:54)
[2021-01-18] MEDS: Sodium Chloride 0.9% 1,000 ML IV SCH ×2 (05:21→13:12)
[2021-01-18 06:28] LABS: #Lymphocytes 0.9 thou/uL (1.20-3.40); #Monocytes 0.2 thou/uL (0.11-0.59); #Neutrophils 8.9 thou/uL (1.40-6.50); %Basophils 0.1 % (0.0-1.0); %Lymphocytes 8.5 % (21.0-51.0); %Monocytes 2.4 % (0.0-10.0); %Neutrophils 88.9 % (42.0-75.0); Hemoglobin 9.5 g/dL (12.0-16.0); Mean Corpuscular HGB CONC 33.7 g/dL (32.0-36.0); Mean Platelet Volume 6.6 fL (7.4-10.4); Platelet Count 136 thou/uL (130-400); RBC Distribution Width 14.8 % (11.5-14.5)
[2021-01-18 07:02] LABS: Anion Gap 11 mmol/L (10-20); BUN (Urea Nitrogen) 8 mg/dL (9.8-20.1); Calc. Creatinine Clearance 105 mL/min (70-130); Calcium 7.7 mg/dL (7.8-10.44); Carbon Dioxide 26 mmol/L (22-29); Chloride 104 mmol/L (98-107); Glucose 151 mg/dL (70-105); Magnesium 1.4 mg/dL (1.6-2.6); Potassium 3.3 mmol/L (3.5-5.1); Sodium 138 mmol/L (136-145)
[2021-01-18 07:16] LABS: Phosphorus 1.6 mg/dL (2.3-4.7)
[2021-01-18] MEDS ORDERED: Potassium Chloride 20 MEQ TAB PO SCH (08:15)
[2021-01-18] MEDS ORDERED: Potassium Phosphate 15 MMOL in Sodium Chloride 0.9% 250 ML 250 ML IVPB SCH (08:15)
[2021-01-18] MEDS: Magnesium Oxide 400 MG TAB PO SCH ×3 (08:45→20:53)
[2021-01-18] MEDS: Famotidine 20 MG TAB PO SCH ×2 (08:45→20:53)
[2021-01-18] MEDS: Enoxaparin Sodium 40 MG/0.4 ML SYRINGE SC SCH (08:46)
[2021-01-18] MEDS: levETIRAcetam in NS 1,500 MG in Premix Bag 1 BAG IVPB SCH ×2 (11:08→20:57)
--- NOTE | 2021-01-18 11:56 | PDOC.MOPN ---
Interval History: Pt feeling better today with improvement in tremors and strength but still very weak. Says her tremors come and go, still has a little on her left side w/movement, and it goes away with Keppra but returns about 45 minutes prior to her next dose. Her appetite has improved and says she is eating better. - Vital Signs Vital Signs: Vital Signs (12 hours) Temp Pulse Resp BP Pulse Ox 01/18/21 08:00 98.4 F 88 18 134/75 100 Weight Admit Weight 111 lb 9.6 oz Weight 111 lb 9.6 oz - Physical Exam General: Alert, Oriented x3, Cooperative HEENT: EOMI Lungs: Normal air movement Neurological: Other (left arm weakness, able to lift at her shoulder and move her wrist and make a fist but very weak, cannot move her arm medially.) Psych/Mental Status: Mood NL - Labs Result Diagrams: 01/18/21 06:19 01/19/21 05:30 Lab results: Laboratory Results - last 24 hr 01/18/21 06:19: WBC 10.0, RBC 2.80 L, Hgb 9.5 L, Hct 28.3 L, MCV 101.0 H, MCH 34.0 H, MCHC 33.7, RDW 14.8 H, Plt Count 136, MPV 6.6 L, Neutrophils % 88.9 H, Lymphocytes % 8.5 L, Monocytes % 2.4, Eosinophils % 0.0, Basophils % 0.1, Neutrophils # 8.9 H, Lymphocytes # 0.9 L, Monocytes # 0.2, Eosinophils # 0.0, Basophils # 0.0 01/18/21 06:19: Sodium 138, Potassium 3.3 L, Chloride 104, Carbon Dioxide 26, Anion Gap 11, BUN 8 L, Creatinine 0.48 L, Estimated GFR (MDRD) Greater than 90, Glucose 151 H, Calcium 7.7 L, Phosphorus 1.6 L, Magnesium 1.4 L A/P - Problem (1) Seizure Current Visit: Yes Code(s): R56.9 - UNSPECIFIED CONVULSIONS Status: Acute (2) Brain metastases Current Visit: No Code(s): C79.31 - SECONDARY MALIGNANT NEOPLASM OF BRAIN [facility]: Chronic - Plan Plan: Spoke to patient and regarding poor prognosis. I discussed hospice vs continuing current treatment if she can gain some strength back and her tremors stay controlled. Currently her tremors are much improved and she has began eating more and participating with PT. She would like to try to get stronger and if not or her neurologic symptoms continue to deteriorate then she will consider hospice at that time which I believe is appropriate. I recommend rehab but she is uninsured so cannot go to rehab. Perhaps continuing PT throughout the weekend and if her family can help do PT with her at home perhaps she can gain some strength back. Will attempt IT k[place] again Thursday.
--- NOTE | 2021-01-18 20:35 | PDOC.HOSPP ---
- Subjective Encounter Date: 01/18/21 Subjective: Well-appearing has no specific complaints. - Objective Vital Signs & Weight: Vital Signs (12 hours) Temp Pulse Resp BP Pulse Ox 01/18/21 20:00 97.6 F 74 16 122/77 100 Weight Admit Weight 111 lb 9.6 oz Weight 111 lb 9.6 oz I&O: 01/17/21 01/18/21 01/19/21 06:59 06:59 06:59 Intake Total 1000 2030 2070 Output Total 1400 2750 Balance 1000 630 -680 Result Diagrams: 01/18/21 06:19 01/18/21 06:19 Hospitalist ROS - Medication Medications: Active Medications Generic Name Dose Route Start Last Admin Trade Name Freq PRN Reason Stop Dose Admin Hydrocodone Bitart/Acetaminophen 2 tab 01/14/21 18:30 01/17/21 09:16 Hydrocodone/Acetaminophen 5/325 Mg Tablet PO 2 tab Q4H PRN Administration Severe Pain (7-10) Cyclobenzaprine HCl 10 mg 01/14/21 18:32 01/18/21 13:09 Cyclobenzaprine 10 Mg Tab PO 10 mg TID PRN Administration Muscle Spasm Dexamethasone 4 mg 01/15/21 22:00 01/18/21 13:09 Dexamethasone 4 Mg/Ml Vial SLOW IVP 4 mg Q8HR ANTHONY Administration Enoxaparin Sodium 40 mg 01/15/21 09:00 01/18/21 08:46 Enoxaparin Sodium 40 Mg/0.4 Ml Syringe SC 40 mg 0900 ANTHONY Administration Famotidine 20 mg 01/14/21 21:00 01/18/21 08:45 Famotidine 20 Mg Tab PO 20 mg BID ANTHONY Administration Sodium Chloride 1,000 mls @ 75 mls/hr 01/14/21 18:30 01/18/21 13:12 Normal Saline 0.9% IV 1,000 mls .[id number] ANTHONY Administration Levetiracetam 1,500 mg/ Device 100 mls @ 200 mls/hr 01/16/21 21:00 01/18/21 11:08 IVPB 100 mls BID ANTHONY Administration Magnesium Oxide 400 mg 01/17/21 21:00 01/18/21 16:11 Magnesium Oxide 400 Mg Tab PO 400 mg TID ANTHONY Administration Sodium Chloride 10 ml 01/18/21 09:00 01/18/21 08:47 Flush - Normal Saline 10 Ml Syringe IVF Not Given Q12HR [facility] Hospitalist Exam Vitals: Vital Signs (12 hours) Temp Pulse Resp BP Pulse Ox 01/18/21 20:00 97.6 F 74 16 122/77 100 Weight Admit Weight 111 lb 9.6 oz Weight 111 lb 9.6 oz General Appearance: NAD, awake alert Eye: PERRL, anicteric sclera ENT: normocephalic atraumatic Neck: supple, symmetric, no JVD Heart: RRR, no murmur, no gallops Respiratory: CTAB, no wheezes Gastrointestinal: soft, non-tender, non-distended Hosp A/P (1) Brain metastases Code(s): C79.31 - SECONDARY MALIGNANT NEOPLASM OF BRAIN Status: Chronic (2) Breast cancer Status: Chronic (3) Seizure Code(s): R56.9 - UNSPECIFIED CONVULSIONS Status: Acute - Plan This is a patient that is known to have breast cancer undergoing intrathecal Herceptin treatment, he was admitted for increasing spasm in both arms and legs and trunk, she was already on antiseizure medications (Keppra). Neurology----patient was seen by neurology, EEG was done it was abnormal, and her Keppra dose was increased. She seems to be responding to that but continues to have twitching of her left upper extremity, but states that the spasms are much better and she is able to work with physical therapy although still very weak. Her left side is weaker than the right side this developed recently upon her admission. She continues to be on IV Decadron. Patient had an MRI in the November , she possibly needs a follow-up MRI of the brain, will touch base with oncology at some point. Oncology--she is known to have metastatic breast cancer to the brain thought to be causing her seizures. Oncology is following and discussion were made about possible hospice versus rehab. Tomorrow patient and her will have further discussions with Dr. Aleman. Palliative care was consulted. GI--- patient is malnourished, dietary was consulted. Renal--- patient's potassium and magnesium are low although better than yesterday, will replace those intravenously and will increase the dose of her maintenance magnesium, possibly also starting her on maintenance potassium. We will check her phosphorus level in a.m Patient continues to be on Lovenox subcutaneously for DVT prophylaxis. Plan for today 01/18 Neurology--- patient's seizures continue to be controlled with Keppra, she continues to receive physical therapy. Oncology--- patient and did have discussion with the oncologist today and their decision is to continue with Herceptin and they are not for the time being interested in hospice. Renal--- morning labs did show low potassium magnesium and phosphorus, I will start her on a maintenance dose of potassium, I already did increase the dose of magnesium awaiting for that increased to show effect, I will recheck those labs in the morning. Patient continues to be on Lovenox for DVT prophylaxis.
[2021-01-19] MEDS: Sodium Chloride 0.9% 1,000 ML IV SCH ×2 (02:07→21:32)
[2021-01-19] MEDS: Dexamethasone 4 mg/ml Vial SLOW IVP SCH ×3 (05:32→21:33)
[2021-01-19 06:15] LABS: Anion Gap 9 mmol/L (10-20); BUN (Urea Nitrogen) 10 mg/dL (9.8-20.1); Calc. Creatinine Clearance 112 mL/min (70-130); Calcium 7.9 mg/dL (7.8-10.44); Carbon Dioxide 27 mmol/L (22-29); Chloride 108 mmol/L (98-107); Glucose 121 mg/dL (70-105); Magnesium 1.3 mg/dL (1.6-2.6); Phosphorus 2.2 mg/dL (2.3-4.7); Potassium 3.8 mmol/L (3.5-5.1); Sodium 140 mmol/L (136-145)
[2021-01-19] MEDS: Potassium Chloride 20 MEQ TAB PO SCH (09:35)
[2021-01-19] MEDS: Magnesium Oxide 400 MG TAB PO SCH ×3 (09:35→20:45)
[2021-01-19] MEDS: Enoxaparin Sodium 40 MG/0.4 ML SYRINGE SC SCH (09:36)
[2021-01-19] MEDS: Famotidine 20 MG TAB PO SCH (09:36)
[2021-01-19] MEDS: levETIRAcetam in NS 1,500 MG in Premix Bag 1 BAG IVPB SCH (09:46)
[2021-01-19] MEDS ORDERED: Magnesium Sulfate 2 GM in Sodium Chloride 0.9% 100 ML IVPB SCH (11:00)
[2021-01-19] MEDS ORDERED: Magnesium 2 GM/50 ML 2 GM in Premix Bag 1 BAG IVPB SCH (11:15)
--- NOTE | 2021-01-19 14:27 | PDOC.HOSPP ---
- Subjective Encounter Date: 01/19/21 (f/u seizures) Encounter Time: 14:24 Subjective: 55 y/o female with metastatic breast cancer and brain mets who presented with seizures. Pt denies any complaints. She reports the tremors in her hands are present. She denies any pain. She desires to continue with treatment. - Objective Vital Signs & Weight: Vital Signs (12 hours) Temp Pulse Resp BP Pulse Ox 01/19/21 08:00 98.3 F 69 16 153/84 H 100 01/19/21 03:57 99 Weight Admit Weight 111 lb 9.6 oz Weight 111 lb 9.6 oz I&O: 01/18/21 01/19/21 01/20/21 06:59 06:59 06:59 Intake Total 2030 3245 Output Total 1400 4250 Balance 630 -1005 Result Diagrams: 01/18/21 06:19 01/19/21 05:30 Hospitalist ROS - Medication Medications: Active Medications Generic Name Dose Route Start Last Admin Trade Name Freq PRN Reason Stop Dose Admin Hydrocodone Bitart/Acetaminophen 2 tab 01/14/21 18:30 01/17/21 09:16 Hydrocodone/Acetaminophen 5/325 Mg Tablet PO 2 tab Q4H PRN Administration Severe Pain (7-10) Cyclobenzaprine HCl 10 mg 01/14/21 18:32 01/18/21 20:54 Cyclobenzaprine 10 Mg Tab PO 10 mg TID PRN Administration Muscle Spasm Dexamethasone 4 mg 01/15/21 22:00 01/19/21 05:32 Dexamethasone 4 Mg/Ml Vial SLOW IVP 4 mg Q8HR ANTHONY Administration Enoxaparin Sodium 40 mg 01/15/21 09:00 01/19/21 09:36 Enoxaparin Sodium 40 Mg/0.4 Ml Syringe SC 40 mg 0900 ANTHONY Administration Famotidine 20 mg 01/14/21 21:00 01/19/21 09:36 Famotidine 20 Mg Tab PO 20 mg BID ANTHONY Administration Sodium Chloride 1,000 mls @ 75 mls/hr 01/14/21 18:30 01/19/21 02:07 Normal Saline 0.9% IV 1,000 mls .[id number] ANTHONY Administration Levetiracetam 1,500 mg/ Device 100 mls @ 200 mls/hr 01/16/21 21:00 01/19/21 0 9:46 IVPB 100 mls BID ANTHONY Administration Magnesium Sulfate 2 gm/ Device 50 mls @ 50 mls/hr 01/19/21 11:15 01/19/21 12:11 IVPB 01/19/21 15:00 50 mls NOW ANTHONY Administration Magnesium Oxide 400 mg 01/17/21 21:00 01/19/21 09:35 Magnesium Oxide 400 Mg Tab PO 400 mg TID ANTHONY Administration Potassium Chloride 20 meq 01/19/21 08:00 01/19/21 09:35 Potassium Chloride 20 Meq Tab PO 20 meq QAM-WM ANTHONY Administration Senna/Docusate Sodium 2 tab 01/14/21 18:30 01/19/21 05:32 Senokot S 8.6-50 Mg Tab PO 2 tab BID PRN Administration Constipation Sodium Chloride 10 ml 01/18/21 09:00 01/19/21 09:36 Flush - Normal Saline 10 Ml Syringe IVF 10 ml Q12HR ANTHONY Administration Sodium Chloride 10 ml 01/18/21 08:30 01/19/21 05:32 Flush - Normal Saline 10 Ml Syringe IVF 10 ml PRN PRN Administration Saline Flush Hospitalist Exam Vitals: Vital Signs (12 hours) Temp Pulse Resp BP Pulse Ox 01/19/21 08:00 98.3 F 69 16 153/84 H 100 01/19/21 03:57 99 Weight Admit Weight 111 lb 9.6 oz Weight 111 lb 9.6 oz General Appearance: NAD Heart: RRR, no murmur Respiratory: no wheezes, no rales, no ronchi Gastrointestinal: soft, non-tender, non-distended, normal bowel sounds Extremities: no cyanosis, no clubbing, no edema Psychiatric: normal affect Hosp A/P (1) Hypomagnesemia Code(s): E83.42 - HYPOMAGNESEMIA Status: Acute (2) Seizure Code(s): R56.9 - UNSPECIFIED CONVULSIONS Status: Acute (3) Gastritis Code(s): K29.70 - GASTRITIS, UNSPECIFIED, WITHOUT BLEEDING Status: Chronic Qualifiers: Gastritis type: unspecified gastritis Chronicity: chronic (4) Brain metastases Code(s): C79.31 - SECONDARY MALIGNANT NEOPLASM OF BRAIN Status: Chronic (5) Breast cancer Status: Chronic (6) Anemia Code(s): D64.9 - ANEMIA, UNSPECIFIED Status: Acute Qualifiers: Anemia type: unspecified type Qualified Code(s): D64.9 - Anemia, unspecified (7) Hypophosphatemia Code(s): E83.39 - OTHER DISORDERS OF PHOSPHORUS METABOLISM Status: Acute - Plan New onset seizure - appreciate Neurology evaluation - pt on tx with ulysses. - she is taking PO - will change to oral Hypomagnesemia - replace and start electrolyte protocol Hypophosphatemia - same as above Anemia - subacute and stable Tremors - resume home med of propranolol with hold parameters Weakness - case management consult for SNF vs inpatient rehab to work on strength Brain mets/breast cancer- pt due for next intrathecal injection on Thursday - will need to connect with Radiology to make sure that this can be performed. Pt desires to continue treatment for this. We discussed that all decisions need to be in alignment with what she wants, and she wants to continue fighting. dvt prophy -lovenox gi prophy - on BID protonix per last hospital discharge - resume reviewed plan of care with patient/, no questions or further needs at end of eval.
[2021-01-19] MEDS ORDERED: Electrolyte Replacement Protocol FS SCH (14:30)
--- NOTE | 2021-01-19 18:12 | EKG ---
Test Reason : WEAKNESS Blood Pressure : / mmHG Vent. Rate : 070 BPM Atrial Rate : 070 BPM P-R Int : 134 ms QRS Dur : 110 ms QT Int : 398 ms P-R-T Axes : 052 024 117 degrees QTc Int : 429 ms Sinus rhythm with occasional , and consecutive Premature ventricular complexes and Fusion complexes Possible Left atrial enlargement Nonspecific ST and T wave abnormality Abnormal ECG Confirmed by PEGGY Winkler, ALO ([id number]), editor producer CLOVIS GAMEZ ([id number]) on 01/19/2021 6:12:08 PM Referred By: EDITH Confirmed By:ALO WOODS M.D.
[2021-01-19] MEDS: Propranolol HCl 20 MG TAB PO SCH (20:45)
[2021-01-19] MEDS: levETIRAcetam 500 MG TAB PO SCH (20:45)
[2021-01-19] MEDS: Cyclobenzaprine 10 MG TAB PO PRN (21:32)
[2021-01-20 05:50] LABS: Anion Gap 11 mmol/L (10-20); BUN (Urea Nitrogen) 14 mg/dL (9.8-20.1); Calc. Creatinine Clearance 98 mL/min (70-130); Carbon Dioxide 24 mmol/L (22-29); Chloride 105 mmol/L (98-107); Glucose 118 mg/dL (70-105); Magnesium 1.5 mg/dL (1.6-2.6); Potassium 3.6 mmol/L (3.5-5.1); Sodium 136 mmol/L (136-145)
[2021-01-20] MEDS: Dexamethasone 4 mg/ml Vial SLOW IVP SCH ×3 (05:58→22:17)
[2021-01-20] MEDS ORDERED: Magnesium 2 GM/50 ML 2 GM in Premix Bag 1 BAG IVPB SCH (06:15)
[2021-01-20] MEDS: Potassium Chloride 20 MEQ TAB PO SCH (10:04)
[2021-01-20] MEDS: Propranolol HCl 20 MG TAB PO SCH ×2 (10:04→20:19)
[2021-01-20] MEDS: Folic Acid 1 MG TAB PO SCH (10:04)
[2021-01-20] MEDS: Magnesium Oxide 400 MG TAB PO SCH ×3 (10:04→20:18)
[2021-01-20] MEDS: Enoxaparin Sodium 40 MG/0.4 ML SYRINGE SC SCH ×2 (10:05→10:18)
[2021-01-20] MEDS: levETIRAcetam 500 MG TAB PO SCH ×2 (10:13→21:01)
[2021-01-20] MEDS: Cyclobenzaprine 10 MG TAB PO PRN (11:04)
--- NOTE | 2021-01-20 15:08 | PDOC.HOSPP ---
- Subjective Encounter Date: 01/20/21 (f/u seizure) Encounter Time: 15:06 Subjective: Pt is without complaints. She denies any n/v/abd pain. She reports appetite is improved. She denies any pain or concerns today. She continues to feel weak. She is due to have an intrathecal injection of chemotherapy tomorrow - and is concerned about missing it - it is in Radiology in this hospital. - Objective Vital Signs & Weight: Vital Signs (12 hours) Temp Pulse Resp BP Pulse Ox 01/20/21 08:00 98.8 F 82 18 135/80 99 01/20/21 04:08 100 Weight Admit Weight 111 lb 9.6 oz Weight 111 lb 9.6 oz I&O: 01/19/21 01/20/21 01/21/21 06:59 06:59 06:59 Intake Total 3245 2155 Output Total 4250 1850 Balance -1005 305 Result Diagrams: 01/18/21 06:19 01/20/21 05:08 Hospitalist ROS - Medication Medications: Active Medications Generic Name Dose Route Start Last Admin Trade Name Freq PRN Reason Stop Dose Admin Hydrocodone Bitart/Acetaminophen 2 tab 01/14/21 18:30 01/17/21 09:16 Hydrocodone/Acetaminophen 5/325 Mg Tablet PO 2 tab Q4H PRN Administration Severe Pain (7-10) Cyclobenzaprine HCl 10 mg 01/14/21 18:32 01/20/21 11:04 Cyclobenzaprine 10 Mg Tab PO 10 mg TID PRN Administration Muscle Spasm Dexamethasone 4 mg 01/15/21 22:00 01/20/21 05:58 Dexamethasone 4 Mg/Ml Vial SLOW IVP 4 mg Q8HR ANTHONY Administration Enoxaparin Sodium 40 mg 01/15/21 09:00 01/20/21 10:18 Enoxaparin Sodium 40 Mg/0.4 Ml Syringe SC Not Given 0900 ANTHONY Folic Acid 1 mg 01/20/21 09:00 01/20/21 10:04 Folic Acid 1 Mg Tab PO 1 mg DAILY ANTHONY Administration Levetiracetam 1,500 mg 01/19/21 21:00 01/20/21 10:13 Levetiracetam 500 Mg Tab PO 1,500 mg BID ANTHONY Administration Magnesium Oxide 400 mg 01/17/21 21:00 01/20/21 10:04 Magnesium Oxide 400 Mg Tab PO 400 mg TID ANTHONY Administration Memantine 10 mg 01/19/21 21:00 01/20/21 10:04 Memantine Hcl 10 Mg Tab PO 10 mg BID ANTHONY Administration Pantoprazole Sodium 40 mg 01/19/21 21:00 01/20/21 10:04 Pantoprazole 40 Mg Tab PO 40 mg BID ANTHONY Administration Potassium Chloride 20 meq 01/19/21 08:00 01/20/21 10:04 Potassium Chloride 20 Meq Tab PO 20 meq QAM-WM ANTHONY Administration Propranolol HCl 20 mg 01/19/21 21:00 01/20/21 10:04 Propranolol Hcl 20 Mg Tab PO 20 mg BID ANTHONY Administration Senna/Docusate Sodium 2 tab 01/14/21 18:30 01/19/21 05:32 Senokot S 8.6-50 Mg Tab PO 2 tab BID PRN Administration Constipation Sodium Chloride 10 ml 01/18/21 09:00 01/20/21 10:05 Flush - Normal Saline 10 Ml Syringe IVF 10 ml Q12HR ANTHONY Administration Sodium Chloride 10 ml 01/18/21 08:30 01/19/21 05:32 Flush - Normal Saline 10 Ml Syringe IVF 10 ml PRN PRN Administration Saline Flush Hospitalist Exam Vitals: Vital Signs (12 hours) Temp Pulse Resp BP Pulse Ox 01/20/21 08:00 98.8 F 82 18 135/80 99 01/20/21 04:08 100 Weight Admit Weight 111 lb 9.6 oz Weight 111 lb 9.6 oz General Appearance: NAD Heart: RRR, no murmur Respiratory: CTAB, no wheezes, no rales, no ronchi Gastrointestinal: soft, non-tender, non-distended, normal bowel sounds Extremities: no cyanosis, no clubbing, no edema Psychiatric: normal affect Hosp A/P (1) Hypomagnesemia Code(s): E83.42 - HYPOMAGNESEMIA Status: Acute (2) Seizure Code(s): R56.9 - UNSPECIFIED CONVULSIONS Status: Acute (3) Gastritis Code(s): K29.70 - GASTRITIS, UNSPECIFIED, WITHOUT BLEEDING Status: Chronic Qualifiers: Gastritis type: unspecified gastritis Chronicity: chronic (4) Brain metastases Code(s): C79.31 - SECONDARY MALIGNANT NEOPLASM OF BRAIN Status: Chronic (5) Breast cancer Status: Chronic (6) Anemia Code(s): D64.9 - ANEMIA, UNSPECIFIED Status: Acute Qualifiers: Anemia type: unspecified type Qualified Code(s): D64.9 - Anemia, unspecifi ed (7) Hypophosphatemia Code(s): E83.39 - OTHER DISORDERS OF PHOSPHORUS METABOLISM Status: Acute - Plan New onset seizure - appreciate Neurology evaluation - - continue Keppra - changed to oral last night Hypomagnesemia - continue replacement Hypophosphatemia - same as above Anemia - subacute and stable Tremors - home propranolol resumed yesterday at last discharge dose (half of previous dose). If not adequately helping and bp's can tolerate, can increase dose to home dose. Weakness - case management consult for SNF vs inpatient rehab to work on strength Brain mets/breast cancer- pt due for next intrathecal injection on Thursday - will need to connect with Radiology to make sure that this can be performed. Pt desires to continue treatment for this. dvt prophy -lovenox gi prophy - on BID protonix per last hospital discharge - resumed reviewed plan of care with patient/, no questions or further needs at end of eval. discussed pt's goals of care - to continue fighting. She does not wish to consider hospice.
[2021-01-20] MEDS: HYDROcodone/Acetaminophen 5/325 mg Tablet PO PRN (20:20)
[2021-01-20] MEDS: Methocarbamol 500 MG TAB PO PRN (20:21)
[2021-01-21] MEDS: Dexamethasone 4 mg/ml Vial SLOW IVP SCH ×3 (05:57→23:14)
[2021-01-21 06:48] LABS: Anion Gap 11 mmol/L (10-20); BUN (Urea Nitrogen) 15 mg/dL (9.8-20.1); Calc. Creatinine Clearance 105 mL/min (70-130); Calcium 8.1 mg/dL (7.8-10.44); Carbon Dioxide 25 mmol/L (22-29); Chloride 105 mmol/L (98-107); Glucose 113 mg/dL (70-105); Magnesium 1.5 mg/dL (1.6-2.6); Potassium 3.8 mmol/L (3.5-5.1); Sodium 137 mmol/L (136-145)
[2021-01-21] MEDS ORDERED: Magnesium 2 GM/50 ML 2 GM in Premix Bag 1 BAG IVPB SCH (07:45)
--- NOTE | 2021-01-21 07:55 | PDOC.HOSPP ---
- Subjective Encounter Date: 01/21/21 Encounter Time: 07:53 Subjective: alert, no specific complaints - Objective Vital Signs & Weight: Vital Signs (12 hours) Temp Pulse Resp BP Pulse Ox 01/20/21 20:00 98.2 F 80 16 125/81 97 Weight Admit Weight 111 lb 9.6 oz Weight 111 lb 9.6 oz I&O: 01/20/21 01/21/21 01/22/21 06:59 06:59 06:59 Intake Total 2155 1668 Output Total 1850 1500 Balance 305 168 Result Diagrams: 01/18/21 06:19 01/21/21 06:15 Hospitalist ROS - Medication Medications: Active Medications Generic Name Dose Route Start Last Admin Trade Name Freq PRN Reason Stop Dose Admin Hydrocodone Bitart/Acetaminophen 1 tab 01/14/21 18:30 01/20/21 20:20 Hydrocodone/Acetaminophen 5/325 Mg Tablet PO 1 tab Q4H PRN Administration Moderate Pain (4-6) Hydrocodone Bitart/Acetaminophen 2 tab 01/14/21 18:30 01/17/21 09:16 Hydrocodone/Acetaminophen 5/325 Mg Tablet PO 2 tab Q4H PRN Administration Severe Pain (7-10) Dexamethasone 4 mg 01/15/21 22:00 01/21/21 05:57 Dexamethasone 4 Mg/Ml Vial SLOW IVP 4 mg Q8HR ANTHONY Administration Enoxaparin Sodium 40 mg 01/15/21 09:00 01/20/21 10:18 Enoxaparin Sodium 40 Mg/0.4 Ml Syringe SC Not Given 0900 ANTHONY Folic Acid 1 mg 01/20/21 09:00 01/20/21 10:04 Folic Acid 1 Mg Tab PO 1 mg DAILY ANTHONY Administration Levetiracetam 1,500 mg 01/19/21 21:00 01/20/21 21:01 Levetiracetam 500 Mg Tab PO 1,500 mg BID ANTHONY Administration Magnesium Oxide 400 mg 01/17/21 21:00 01/20/21 20:18 Magnesium Oxide 400 Mg Tab PO 400 mg TID ANTHONY Administration Memantine 10 mg 01/19/21 21:00 01/20/21 20:19 Memantine Hcl 10 Mg Tab PO 10 mg BID ANTHONY Administration Methocarbamol 500 mg 01/20/21 16:16 01/20/21 20:21 Methocarbamol 500 Mg Tab PO 500 mg QID PRN Administration Muscle Spasm Pantoprazole Sodium 40 mg 01/19/21 21:00 01/20/21 20:18 Pantoprazole 40 Mg Tab PO 40 mg BID ANTHONY Administration Potassium Chloride 20 meq 01/19/21 08:00 01/20/21 10:04 Potassium Chloride 20 Meq Tab PO 20 meq QAM-WM ANTHONY Administration Propranolol HCl 20 mg 01/19/21 21:00 01/20/21 20:19 Propranolol Hcl 20 Mg Tab PO 20 mg BID ANTHONY Administration Senna/Docusate Sodium 2 tab 01/14/21 18:30 01/19/21 05:32 Senokot S 8.6-50 Mg Tab PO 2 tab BID PRN Administration Constipation Sodium Chloride 10 ml 01/18/21 09:00 01/20/21 22:17 Flush - Normal Saline 10 Ml Syringe IVF 10 ml Q12HR ANTHONY Administration Sodium Chloride 10 ml 01/18/21 08:30 01/21/21 05:58 Flush - Normal Saline 10 Ml Syringe IVF 10 ml PRN PRN Administration Saline Flush Hospitalist Exam Vitals: Vital Signs (12 hours) Temp Pulse Resp BP Pulse Ox 01/20/21 20:00 98.2 F 80 16 125/81 97 Weight Admit Weight 111 lb 9.6 oz Weight 111 lb 9.6 oz General Appearance: awake alert Neck: no JVD Heart: RRR, no murmur Respiratory: CTAB Gastrointestinal: soft, normal bowel sounds Extremities: no edema Hosp A/P (1) Anemia Code(s): D64.9 - ANEMIA, UNSPECIFIED Status: Acute Qualifiers: Anemia type: unspecified type Qualified Code(s): D64.9 - Anemia, unspecified (2) Seizure Code(s): R56.9 - UNSPECIFIED CONVULSIONS Status: Acute (3) Diarrhea Code(s): R19.7 - DIARRHEA, UNSPECIFIED Status: Acute (4) Brain metastases Code(s): C79.31 - SECONDARY MALIGNANT NEOPLASM OF BRAIN Status: Chronic (5) Breast cancer Status: Chronic - Plan seizure- cont keprra brain metstasis- intrathecal chemo today
[2021-01-21] MEDS ORDERED: STERILE WATER IV SCH ×2 (08:45→09:15)
[2021-01-21] MEDS ORDERED: TRASTUZUMAB ANNS IV SCH ×2 (08:45→09:15)
[2021-01-21] MEDS: Methocarbamol 500 MG TAB PO PRN ×2 (09:57→16:43)
[2021-01-21] MEDS: Folic Acid 1 MG TAB PO SCH (09:58)
[2021-01-21] MEDS: Potassium Chloride 20 MEQ TAB PO SCH (09:58)
[2021-01-21] MEDS: Enoxaparin Sodium 40 MG/0.4 ML SYRINGE SC SCH (09:58)
[2021-01-21] MEDS: Magnesium Oxide 400 MG TAB PO SCH ×3 (09:58→20:50)
[2021-01-21] MEDS: Propranolol HCl 20 MG TAB PO SCH ×2 (09:58→20:50)
[2021-01-21] MEDS: levETIRAcetam 500 MG TAB PO SCH ×2 (09:59→20:50)
--- NOTE | 2021-01-21 12:04 | RAD ---
Intrathecal chemotherapy administration with fluoroscopic guidance: 01/21/2021 HISTORY: Breast cancer FINDINGS: Informed consent obtained prior to the procedure. Skin overlying the lumbar spine was prepped and draped in normal sterile fashion. Skin overlying the L2-3 level was anesthetized with 1% buffered lidocaine. With intermittent fluoroscopic guidance, a 22-gauge spinal needle is in than into the thecal sac and removal of the stylet yields slightly cloudy reddish cerebrospinal fluid. 2 cc were removed and sent to laboratory for assessment. Then, the methotrexate dose provided was administered over a 4-5 minute time period. Needle was remov ed. The patient tolerated the procedure well. Exposure data: 0.4 minutes of fluoroscopic time, 45.2 microgray per meter squared IMPRESSION: Successful intrathecal administration of chemotherapy with fluoroscopic guidance as above .
[2021-01-21 13:26] LABS: CSF Source CSF
[2021-01-21 13:27] LABS: Tube # 1
[2021-01-21 13:28] LABS: Clarity Hazy (Clear)
[2021-01-21 13:38] LABS: CSF, Glucose 74 mg/dl (40-70); CSF, Protein 48 mg/dL (15-40)
--- NOTE | 2021-01-21 13:43 | PDOC.NEUPN ---
- Subjective Encounter Date: 01/21/21 Subjective: Mrs. Trinh is doing well today and tolerated the intrathecal procedure well. She does complain of few muscle spasms but overall done under control with Philomenara. - Objective Vital Signs & Weight: Vital Signs (12 hours) Temp Pulse Resp BP Pulse Ox 01/21/21 08:00 98.3 F 68 18 148/82 H 99 Weight Admit Weight 111 lb 9.6 oz Weight 111 lb 9.6 oz I&O: 01/20/21 01/21/21 01/22/21 06:59 06:59 06:59 Intake Total 2155 1668 250 Output Total 1850 1500 Balance 305 168 250 Result Diagrams: 01/18/21 06:19 01/21/21 06:15 Radiology Reviewed by me: Yes EKG Reviewed by me: Yes ROS - Review of Systems Constitutional: denies: fever, chills, sweats, weakness, malaise, other Eyes: denies: pain, vision change, conjunctivae inflammation, eyelid inflammation, redness, other ENT: denies: ear pain, ear discharge, nose pain, nose discharge, nose congestion, mouth pain, mouth swelling, throat pain, throat swelling, other Gastrointestinal: denies: nausea, vomiting, abdominal pain, diarrhea, constipation, melena, hematochezia, other Neurological: reports: weakness, numbness, incoordination. denies: change in speech, confusion, seizures, other - Medication Medications: Active Medications Generic Name Dose Route Start Last Admin Trade Name Freq PRN Reason Stop Dose Admin Hydrocodone Bitart/Acetaminophen 1 tab 01/14/21 18:30 01/20/21 20:20 Hydrocodone/Acetaminophen 5/325 Mg Tablet PO 1 tab Q4H PRN Administration Moderate Pain (4-6) Hydrocodone Bitart/Acetaminophen 2 tab 01/14/21 18:30 01/17/21 09:16 Hydrocodone/Acetaminophen 5/325 Mg Tablet PO 2 tab Q4H PRN Administration Severe Pain (7-10) Dexamethasone 4 mg 01/15/21 22:00 01/21/21 05:57 Dexamethasone 4 Mg/Ml Vial SLOW IVP 4 mg Q8HR ANTHONY Administration Enoxaparin Sodium 40 mg 01/15/21 09:00 01/21/21 09:58 Enoxaparin Sodium 40 Mg/0.4 Ml Syringe SC Not Given 0900 ANTHONY Folic Acid 1 mg 01/20/21 09:00 01/21/21 09:58 Folic Acid 1 Mg Tab PO 1 mg DAILY ANTHONY Administration Levetiracetam 1,500 mg 01/19/21 21:00 01/21/21 09:59 Levetiracetam 500 Mg Tab PO 1,500 mg BID ANTHONY Administration Magnesium Oxide 400 mg 01/17/21 21:00 01/21/21 09:58 Magnesium Oxide 400 Mg Tab PO 400 mg TID ANTHONY Administration Memantine 10 mg 01/19/21 21:00 01/21/21 09:58 Memantine Hcl 10 Mg Tab PO 10 mg BID ANTHONY Administration Methocarbamol 500 mg 01/20/21 16:16 01/21/21 09:57 Methocarbamol 500 Mg Tab PO 500 mg QID PRN Administration Muscle Spasm Pantoprazole Sodium 40 mg 01/19/21 21:00 01/21/21 09:58 Pantoprazole 40 Mg Tab PO 40 mg BID ANTHONY Administration Potassium Chloride 20 meq 01/19/21 08:00 01/21/21 09:58 Potassium Chloride 20 Meq Tab PO 20 meq QAM-WM ANTHONY Administration Propranolol HCl 20 mg 01/19/21 21:00 01/21/21 09:58 Propranolol Hcl 20 Mg Tab PO 20 mg BID ANTHONY Administration Senna/Docusate Sodium 2 tab 01/14/21 18:30 01/19/21 05:32 Senokot S 8.6-50 Mg Tab PO 2 tab BID PRN Administration Constipation Sodium Chloride 10 ml 01/18/21 09:00 01/21/21 09:59 Flush - Normal Saline 10 Ml Syringe IVF 10 ml Q12HR ANTHONY Administration Sodium Chloride 10 ml 01/18/21 08:30 01/21/21 05:58 Flush - Normal Saline 10 Ml Syringe IVF 10 ml PRN PRN Administration Saline Flush - Exam General Appearance: awake alert Eye: PERRL ENT: normocephalic atraumatic Neck: supple Respiratory: CTAB Cardiovascular: RRR Gastrointestinal: soft Extremities: no cyanosis Skin: normal turgor Neurological: no new deficit Neurological - other findings: Left hemiparesis Musculoskeletal: normal tone, generalized weakness PSYCH: normal affect, normal behavior, A&O x 3, oriented to person, oriented to place, oriented to time Results - Labs Result Diagrams: 01/18/21 06:19 01/21/21 06:15 Lab results: WBC 10.0 thou/uL (4.8-10.8) 01/18/21 06:19 Hgb 9.5 g/dL (12.0-16.0) L 01/18/21 06:19 Hct 28.3 % (36.0-47.0) L 01/18/21 06:19 MCV 101.0 fL (78.0-98.0) H 01/18/21 06:19 Plt Count 136 thou/uL (130-400) 01/18/21 06:19 Neutrophils % 88.9 % (42.0-75.0) H 01/18/21 06:19 Sodium 137 mmol/L (136-145) 01/21/21 06:15 Potassium 3.8 mmol/L (3.5-5.1) 01/21/21 06:15 Chloride 105 mmol/L (98-107) 01/21/21 06:15 Carbon Dioxide 25 mmol/L (22-29) 01/21/21 06:15 BUN 15 mg/dL (9.8-20.1) 01/21/21 06:15 Creatinine 0.48 mg/dL (0.6-1.1) L 01/21/21 06:15 Glucose 113 mg/dL (70-105) H 01/21/21 06:15 Calcium 8.1 mg/dL (7.8-10.44) 01/21/21 06:15 Total Bilirubin 1.1 mg/dL (0.2-1.2) 01/14/21 09:40 AST 38 U/L (5-34) H 01/14/21 09:40 ALT 62 U/L (8-55) H 01/14/21 09:40 Alkaline Phosphatase 77 U/L (40-110) 01/14/21 09:40 Troponin I 0.013 ng/mL (< 0.028) 01/14/21 12:50 Serum Total Protein 5.3 g/dL (6.0-8.3) L 01/14/21 09:40 Albumin 3.1 g/dL (3.5-5.0) L 01/14/21 09:40 Urine Ketones 20 mg/dL (Negative) A 01/14/21 12:50 Urine Blood Negative (Negative) 01/14/21 12:50 Urine Nitrite Negative (Negative) 01/14/21 12:50 Ur Leukocyte Esterase Negative Bella/uL (Negative) 01/14/21 12:50 - Radiology Interpretation MRI - head Additional Comment: MRI of the brain was consistent with metastatic brain lesions PN A/P (1) Seizure Code(s): R56.9 - UNSPECIFIED CONVULSIONS Status: Acute (2) Esophagitis Code(s): K20.90 - ESOPHAGITIS, UNSPECIFIED WITHOUT BLEEDING Status: Acute (3) Brain metastases Code(s): C79.31 - SECONDARY MALIGNANT NEOPLASM OF BRAIN Status: Chronic (4) Breast cancer Status: Chronic (5) Gastritis Code(s): K29.70 - GASTRITIS, UNSPECIFIED, WITHOUT BLEEDING Status: Chronic Qualifiers: Gastritis type: unspecified gastritis Chronicity: chronic (6) SIGIFREDO (acute kidney injury) Code(s): N17.9 - ACUTE KIDNEY FAILURE, UNSPECIFIED Status: Resolved - Plan Daily Plan: plan discussed w/ family, PT/OT ( at bedside), speech therapy, DVT proph w/SCDs Mrs. Trinh is a 55-year-old female with history significant for breast carcinoma with metastasis to the brain presented with painful muscle twitching with altered mental status. She underwent intra-thecal chemotherapy today which she tolerated well EEG showed frequent spikes in the right para-sagittal regions which can cause painful paraesthesias due to cortical irritabilty of the parietal lobe. She was started on Keppra and the dose was subsequently increased to Keppra to 1500 mg po bid yesterday which did improve her symptoms. She did have a couple of episodes of increased muscle spasms over the weekend. Add gabapentin 100 mg tid as adjunctive therapy. Neurochecks every 4 hours. Observe seizure precautions. Ativan 2 mg IV for seizure greater than 2 minutes MRI of the brain reviewed which was done on 12/28/2020 which was consistent with metastatic brain disease. There is also a large area of restricted diffusion in the large temporoparietal and occipital region which was considered as post ictal focus rather than subacute infarction. Patient's EEG is consistent with right parasagittal region spikes. Consider MRI of the brain with contrast again to follow-up on the lesion which is most likely the left epileptogenic focus. Continue home medications. Continue medical management per primary team and oncology. DVT prophylaxis PT/OT/speech Plan discussed in detail with the patient at the bedside and nursing staff
[2021-01-21 14:13] LABS: Bacteria/HPF 2+ HPF (None Seen); Bilirubin Negative (Negative); Blood, Urine Trace (Negative); Clarity Turbid (Clear); Glucose, Urine (Dipstick) Normal (Negative); Ketone, Urine Negative (Negative); Leukocyte 500 Leu/uL (Negative); Nitrite Negative (Negative); Protein, Urine (Dipstick) Negative (Neg-Trace); Specific Gravity, Urine 1.007 (1.002-1.036); Squamous Epithelial None Seen HPF (0-3); Urobilinogen Normal mg/dL (Less than 2); WBC/HPF Greater than 50 HPF (0-3)
[2021-01-21] MEDS: Gabapentin 100 MG CAP PO SCH ×2 (16:42→20:49)
[2021-01-22] MEDS: Dexamethasone 4 mg/ml Vial SLOW IVP SCH ×3 (05:40→21:06)
[2021-01-22] MEDS: Methocarbamol 500 MG TAB PO PRN ×3 (05:42→20:47)
[2021-01-22] MEDS: Potassium Chloride 20 MEQ TAB PO SCH (11:00)
[2021-01-22] MEDS: Gabapentin 100 MG CAP PO SCH ×3 (11:00→21:02)
[2021-01-22] MEDS: HYDROcodone/Acetaminophen 5/325 mg Tablet PO PRN ×3 (11:01→21:03)
[2021-01-22] MEDS: Magnesium Oxide 400 MG TAB PO SCH ×3 (11:01→20:48)
[2021-01-22] MEDS: Propranolol HCl 20 MG TAB PO SCH ×2 (11:01→20:47)
[2021-01-22] MEDS: Folic Acid 1 MG TAB PO SCH (11:01)
[2021-01-22] MEDS: Enoxaparin Sodium 40 MG/0.4 ML SYRINGE SC SCH (11:02)
--- NOTE | 2021-01-22 12:21 | PDOC.HOSPP ---
- Subjective Encounter Date: 01/22/21 Encounter Time: 12:19 Subjective: awake, alert - Objective Vital Signs & Weight: Vital Signs (12 hours) Temp Pulse Resp BP Pulse Ox 01/22/21 08:00 98.6 F 72 18 145/81 H 96 Weight Admit Weight 111 lb 9.6 oz Weight 111 lb 9.6 oz I&O: 01/21/21 01/22/21 01/23/21 06:59 06:59 06:59 Intake Total 1668 1060 Output Total 1500 1999 Balance 168 -940 Result Diagrams: 01/18/21 06:19 01/21/21 06:15 Hospitalist ROS - Medication Medications: Active Medications Generic Name Dose Route Start Last Admin Trade Name Freq PRN Reason Stop Dose Admin Hydrocodone Bitart/Acetaminophen 1 tab 01/14/21 18:30 01/22/21 11:01 Hydrocodone/Acetaminophen 5/325 Mg Tablet PO 1 tab Q4H PRN Administration Moderate Pain (4-6) Hydrocodone Bitart/Acetaminophen 2 tab 01/14/21 18:30 01/17/21 09:16 Hydrocodone/Acetaminophen 5/325 Mg Tablet PO 2 tab Q4H PRN Administration Severe Pain (7-10) Dexamethasone 4 mg 01/15/21 22:00 01/22/21 05:40 Dexamethasone 4 Mg/Ml Vial SLOW IVP 4 mg Q8HR ANTHONY Administration Enoxaparin Sodium 40 mg 01/15/21 09:00 01/22/21 11:02 Enoxaparin Sodium 40 Mg/0.4 Ml Syringe SC Not Given 0900 ANTHONY Folic Acid 1 mg 01/20/21 09:00 01/22/21 11:01 Folic Acid 1 Mg Tab PO 1 mg DAILY ANTHONY Administration Gabapentin 100 mg 01/21/21 15:00 01/22/21 11:00 Gabapentin 100 Mg Cap PO 100 mg TID ANTHONY Administration Levetiracetam 1,500 mg 01/19/21 21:00 01/21/21 20:50 Levetiracetam 500 Mg Tab PO 1,500 mg BID ANTHONY Administration Magnesium Oxide 400 mg 01/17/21 21:00 01/22/21 11:01 Magnesium Oxide 400 Mg Tab PO 400 mg TID ANTHONY Administration Memantine 10 mg 01/19/21 21:00 01/22/21 11:00 Memantine Hcl 10 Mg Tab PO 10 mg BID ANTHONY Administration Methocarbamol 500 mg 01/20/21 16:16 01/22/21 11:00 Methocarbamol 500 Mg Tab PO 500 mg QID PRN Administration Muscle Spasm Pantoprazole Sodium 40 mg 01/19/21 21:00 01/22/21 11:00 Pantoprazole 40 Mg Tab PO 40 mg BID ANTHONY Administration Potassium Chloride 20 meq 01/19/21 08:00 01/22/21 11:00 Potassium Chloride 20 Meq Tab PO 20 meq QAM-WM ANTHONY Administration Propranolol HCl 20 mg 01/19/21 21:00 01/22/21 11:01 Propranolol Hcl 20 Mg Tab PO 20 mg BID ANTHONY Administration Senna/Docusate Sodium 2 tab 01/14/21 18:30 01/19/21 05:32 Senokot S 8.6-50 Mg Tab PO 2 tab BID PRN Administration Constipation Sodium Chloride 10 ml 01/18/21 09:00 01/22/21 11:02 Flush - Normal Saline 10 Ml Syringe IVF 10 ml Q12HR ANTHONY Administration Sodium Chloride 10 ml 01/18/21 08:30 01/21/21 05:58 Flush - Normal Saline 10 Ml Syringe IVF 10 ml PRN PRN Administration Saline Flush Hospitalist Exam Vitals: Vital Signs (12 hours) Temp Pulse Resp BP Pulse Ox 01/22/21 08:00 98.6 F 72 18 145/81 H 96 Weight Admit Weight 111 lb 9.6 oz Weight 111 lb 9.6 oz General Appearance: awake alert Neck: no JVD Heart: RRR, no murmur Respiratory: CTAB Gastrointestinal: soft, normal bowel sounds Extremities: no edema Hosp A/P (1) Anemia Code(s): D64.9 - ANEMIA, UNSPECIFIED Status: Acute Qualifiers: Anemia type: unspecified type Qualified Code(s): D64.9 - Anemia, unspecified (2) Seizure Code(s): R56.9 - UNSPECIFIED CONVULSIONS Status: Acute (3) Diarrhea Code(s): R19.7 - DIARRHEA, UNSPECIFIED Status: Acute (4) Brain metastases Code(s): C79.31 - SECONDARY MALIGNANT NEOPLASM OF BRAIN Status: Chronic (5) Breast cancer Status: Chronic - Plan seizure- cont keprra brain metstasis- intrathecal chemo weekly on Mondays x 3 more weeks rehab pending
[2021-01-22] MEDS: levETIRAcetam 500 MG TAB PO SCH ×2 (12:26→20:47)
--- NOTE | 2021-01-22 15:30 | PDOC.PALCO ---
Palliative Care Consult - Consult Details Requesting Physician: Gilbert Davis Reason for Consult: goals of care, complex decision-making Family Members Present: Patient spouse - Pertinent HPI 55 year old female with known history of breast cancer with brain metastatic disease. Recent hospitalization secondary to nausea, vomiting related to chemo. 01/14/21 patient experienced spasms and jerking movements to lower extremities progressing and prohibiting ambulation. EMS was called and patient transported to [facility] for further evaluation. No relieving factors in home setting. Negative for pain, nausea, vomiting, headache. Admitted for medical management and further evaluation. Seen also by neurology, arnav ordered and currently managing spasms/non voluntary movements. Aware there is no curative treatment and current chemo regimen is palliative only. 3 out of 6 given. 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 awake, alert, denies pain. Spouse to bedside, states appetite has improved. - ROS Constitutional: alert, weakness ENT: other (Denies difficulity swallowing, congestion) Respiratory: other (Denies shortness of breath, cough) Cardiology: other (Denies chest pain, palpitaitons) Gastrointestinal: other (Negative for nausea, vomiting, diarrhea) Musculoskeletal: other (Deneis pain to extremities) Neurological: confusion, incoordination, tremor, weakness Skin: other (Denies rash, puritis) - Objective Vital Signs: Vital Signs - Most Recent Temp Pulse Resp BP Pulse Ox 98.6 F 72 18 145/81 H 96 01/22/21 08:00 01/22/21 08:00 01/22/21 08:00 01/22/21 08:00 01/22/21 08:00 Palliative Performance Scale: 40 - Physical Exam Constitutional: NAD, ill appearing HEENT: EOMI, moist MMs, sclera anicteric Respiratory: clear to auscultation bilateral, no wheezing, unlabored breathing Cardiovascular: RRR Gastrointestinal: continent, soft, non-tender Deviation from normal: purwick cath Musculoskeletal: no cyanosis, no clubbing, pulses present Neurology: moves all 4 limbs, hemiplegia Deviation from normal: left Skin: cap refill <2 seconds Deviation from normal: Pallor Psychiatric: A&O x 3 - Problem List (1) Palliative care encounter Code(s): Z51.5 - ENCOUNTER FOR PALLIATIVE CARE Current Visit: No Status: Acute (2) Brain metastases Code(s): C79.31 - SECONDARY MALIGNANT NEOPLASM OF BRAIN Current Visit: No Status: Chronic (3) Breast cancer Current Visit: No Status: Chronic (4) SIGIFREDO (acute kidney injury) Code(s): N17.9 - ACUTE KIDNEY FAILURE, UNSPECIFIED Current Visit: No Status: Resolved - Plan/Recommendations Plan: Short life review, Patient and spouse together over 27 years, one child together, also raised a granddaughter. 13 year old grandson also lives with them. In addressing goals patient and spouse desire to pursue the option provided by Dr Aleman, rehab to gain strength and continue with last 3 intrathecal injections of chemo. Insurance barrier for rehab, case management attempting to see if [facility] will offer a klaudia bed. Currently Arnav is managing seizure activity to extremities. Discussed "Hope for the best and plan/discuss unfavorable" to allow for deliberate choices and decisions. Will attempt to arrange a family meeting with patient two daughters. Understanding of poor prognosis, discussed quality of life and option of home setting with family verses rehab. Emotional support and Therapeutic listening Will follow up 01/23 and revisit goals and discuss DNAR/OOHDNAR Communicated with Dr العراقي and Gilbert Davis [70] minutes spent on this encounter with >50% of the time in counseling and coordination of care. Thank you for this very appropriate consult.
--- NOTE | 2021-01-22 17:22 | PDOC.MOPN ---
Interval History: doing ok. pain controlled. Await rehab decision. Patient will continue IT Herceptin for 3 more weeks - Vital Signs Vital Signs: Vital Signs (12 hours) Temp Pulse Pulse Pulse Resp BP BP 01/22/21 13:15 73 81 141/92 H 100/70 01/22/21 08:00 98.6 F 72 18 BP Pulse Ox 01/22/21 13:15 01/22/21 08:00 145/81 H 96 Weight Admit Weight 111 lb 9.6 oz Weight 111 lb 9.6 oz - Labs Result Diagrams: 01/18/21 06:19 01/21/21 06:15 A/P - Problem (1) Brain metastases Current Visit: No Code(s): C79.31 - SECONDARY MALIGNANT NEOPLASM OF BRAIN Status: Chronic (2) Breast cancer Current Visit: No Status: Chronic
[2021-01-23] MEDS: Dexamethasone 4 mg/ml Vial SLOW IVP SCH ×3 (05:41→23:18)
[2021-01-23] MEDS: Potassium Chloride 20 MEQ TAB PO SCH (09:15)
[2021-01-23] MEDS: Enoxaparin Sodium 40 MG/0.4 ML SYRINGE SC SCH ×2 (09:15→09:19)
[2021-01-23] MEDS: Folic Acid 1 MG TAB PO SCH (09:16)
[2021-01-23] MEDS: Gabapentin 100 MG CAP PO SCH ×3 (09:16→20:13)
[2021-01-23] MEDS: Magnesium Oxide 400 MG TAB PO SCH ×3 (09:16→20:13)
[2021-01-23] MEDS: levETIRAcetam 500 MG TAB PO SCH ×2 (09:17→20:12)
[2021-01-23] MEDS: Propranolol HCl 20 MG TAB PO SCH ×2 (09:17→20:12)
--- NOTE | 2021-01-23 11:10 | PDOC.HOSPP ---
- Subjective Encounter Date: 01/23/21 Encounter Time: 11:09 Subjective: more alert and cheerfull today - Objective Vital Signs & Weight: Weight Admit Weight 111 lb 9.6 oz Weight 111 lb 9.6 oz I&O: 01/22/21 01/23/21 01/24/21 06:59 06:59 06:59 Intake Total 1060 1582 Output Total 19990 [facility] -585 -928 Result Diagrams: 01/18/21 06:19 01/21/21 06:15 Hospitalist ROS - Medication Medications: Active Medications Generic Name Dose Route Start Last Admin Trade Name Freq PRN Reason Stop Dose Admin Hydrocodone Bitart/Acetaminophen 1 tab 01/14/21 18:30 01/22/21 21:03 Hydrocodone/Acetaminophen 5/325 Mg Tablet PO 1 tab Q4H PRN Administration Moderate Pain (4-6) Hydrocodone Bitart/Acetaminophen 2 tab 01/14/21 18:30 01/17/21 09:16 Hydrocodone/Acetaminophen 5/325 Mg Tablet PO 2 tab Q4H PRN Administration Severe Pain (7-10) Dexamethasone 4 mg 01/15/21 22:00 01/23/21 05:41 Dexamethasone 4 Mg/Ml Vial SLOW IVP 4 mg Q8HR ANTHONY Administration Enoxaparin Sodium 40 mg 01/15/21 09:00 01/23/21 09:19 Enoxaparin Sodium 40 Mg/0.4 Ml Syringe SC Not Given 0900 ANTHONY Folic Acid 1 mg 01/20/21 09:00 01/23/21 09:16 Folic Acid 1 Mg Tab PO 1 mg DAILY ANTHONY Administration Gabapentin 100 mg 01/21/21 15:00 01/23/21 09:16 Gabapentin 100 Mg Cap PO 100 mg TID ANTHONY Administration Levetiracetam 1,500 mg 01/19/21 21:00 01/23/21 09:17 Levetiracetam 500 Mg Tab PO 1,500 mg BID ANTHONY Administration Magnesium Oxide 400 mg 01/17/21 21:00 01/23/21 09:16 Magnesium Oxide 400 Mg Tab PO 400 mg TID ANTHONY Administration Memantine 10 mg 01/19/21 21:00 01/23/21 09:16 Memantine Hcl 10 Mg Tab PO 10 mg BID ANTHONY Administration Methocarbamol 500 mg 01/20/21 16:16 01/22/21 20:47 Methocarbamol 500 Mg Tab PO 500 mg QID PRN Administration Muscle Spasm Pantoprazole Sodium 40 mg 01/19/21 21:00 01/23/21 09:16 Pantoprazole 40 Mg Tab PO 40 mg BID ANTHONY Administration Potassium Chloride 20 meq 01/19/21 08:00 01/23/21 09:15 Potassium Chloride 20 Meq Tab PO 20 meq QAM-WM ANTHONY Administration Propranolol HCl 20 mg 01/19/21 21:00 01/23/21 09:17 Propranolol Hcl 20 Mg Tab PO 20 mg BID ANTHONY Administration Senna/Docusate Sodium 2 tab 01/14/21 18:30 01/19/21 05:32 Senokot S 8.6-50 Mg Tab PO 2 tab BID PRN Administration Constipation Sodium Chloride 10 ml 01/18/21 09:00 01/23/21 09:17 Flush - Normal Saline 10 Ml Syringe IVF 10 ml Q12HR ANTHONY Administration Sodium Chloride 10 ml 01/18/21 08:30 01/23/21 05:41 Flush - Normal Saline 10 Ml Syringe IVF 10 ml PRN PRN Administration Saline Flush Hospitalist Exam Vitals: Weight Admit Weight 111 lb 9.6 oz Weight 111 lb 9.6 oz General Appearance: awake alert Neck: no JVD Heart: RRR Respiratory: CTAB Gastrointestinal: soft, normal bowel sounds Extremities: no edema Neurological: cranial nerve grossly intact Neurological - other findings: L sided weakness Hosp A/P (1) Anemia Code(s): D64.9 - ANEMIA, UNSPECIFIED Status: Acute Qualifiers: Anemia type: unspecified type Qualified Code(s): D64.9 - Anemia, unspecified (2) Seizure Code(s): R56.9 - UNSPECIFIED CONVULSIONS Status: Acute (3) Diarrhea Code(s): R19.7 - DIARRHEA, UNSPECIFIED Status: Acute (4) Brain metastases Code(s): C79.31 - SECONDARY MALIGNANT NEOPLASM OF BRAIN Status: Chronic (5) Breast cancer Status: Chronic - Plan seizure- cont keprra brain metstasis- intrathecal chemo weekly on Mondays x 3 more weeks rehab denied, discuss with oncology
[2021-01-23] MEDS: Methocarbamol 500 MG TAB PO PRN (23:18)
[2021-01-24] MEDS: Dexamethasone 4 mg/ml Vial SLOW IVP SCH ×3 (05:41→22:08)
[2021-01-24] MEDS: Enoxaparin Sodium 40 MG/0.4 ML SYRINGE SC SCH (08:37)
[2021-01-24] MEDS: levETIRAcetam 500 MG TAB PO SCH ×2 (08:38→20:28)
[2021-01-24] MEDS: Gabapentin 100 MG CAP PO SCH ×3 (08:38→20:28)
[2021-01-24] MEDS: Magnesium Oxide 400 MG TAB PO SCH ×3 (08:39→20:28)
[2021-01-24] MEDS: Folic Acid 1 MG TAB PO SCH (08:39)
[2021-01-24] MEDS: Propranolol HCl 20 MG TAB PO SCH ×2 (08:39→20:28)
[2021-01-24] MEDS: Potassium Chloride 20 MEQ TAB PO SCH (08:39)
--- NOTE | 2021-01-24 14:06 | PDOC.PALPN ---
Palliative Progress Note - Subjective Resting, weakness, cheerful. - Objective Vital Signs: Vital Signs - Most Recent Temp Pulse Resp BP Pulse Ox 97.9 F 79 14 123/68 100 01/24/21 08:00 01/24/21 08:00 01/24/21 08:00 01/24/21 08:00 01/24/21 08:00 - Physical Exam Constitutional: NAD, ill appearing HEENT: EOMI, moist MMs, sclera anicteric Respiratory: no wheezing, unlabored breathing Cardiovascular: RRR Gastrointestinal: soft, non-tender, positive bowel sounds Musculoskeletal: no clubbing Deviation from normal: weakness/left sided Skin: cap refill <2 seconds Deviation from normal: pallor Psychiatric: A&O x 3, normal mood - Assessment (1) Palliative care encounter Code(s): Z51.5 - ENCOUNTER FOR PALLIATIVE CARE Current Visit: No Status: Acute (2) Brain metastases Code(s): C79.31 - SECONDARY MALIGNANT NEOPLASM OF BRAIN Current Visit: No Status: Chronic (3) Breast cancer Current Visit: No Status: Chronic - Plan Plan: Understanding of poor prognosis and palliative measures. Hopeful for continued absence of tremors or seizure activity. Goal: Continue intrathecal therapy weekly (3 out of 6 received) Home with assistance from [facility] ([facility] is funding) Denied rehab Oncology to continue to follow Emotional support and therapeutic listening Palliative care will sign off as goals addressed. Please reconsult our team for assistance with complex decision making, prognosis disease assist, symptom management, or revisiting goal of care [35] minutes spent on this encounter with >50% of the time in counseling and coordination of care. - ROS Constitutional: alert, weakness ENT: other (Denies throat irritation, difficulity swallowing) Respiratory: other (Denies cough, congestion) Cardiology: other (Denies chest pain, palpitations) Gastrointestinal: other (Denies nausea, vomiting) Genitourinary: other (Denies hematuria, suprapubic pain) Neurological: weakness
--- NOTE | 2021-01-24 18:41 | DIS ---
DATE OF ADMISSION: 01/15/2021 DATE OF DISCHARGE: 01/25/2021 PRIMARY CARE PROVIDER: None listed. ONCOLOGIST: Dr. Aleman. DIAGNOSES: 1. Seizure disorder. 2. Breast cancer. 3. Metastatic breast cancer to the brain. 4. Muscle spasms. 5. Hypomagnesemia. 6. Hypophosphatemia. DISCHARGE MEDICATIONS: New: 1. Dexamethasone 4 mg p.o. q.6h. 2. Gabapentin 100 mg p.o. t.i.d. 3. Keppra 1500 mg p.o. b.i.d. 4. Robaxin 500 mg p.o. q.i.d. 5. Protonix 40 mg a day. 6. Memantine 10 mg a day. 7. Folic acid 1 mg a day. 8. Propranolol 40 mg b.i.d. 9. Arimidex 1 mg a day. 10. fluconazole 100 mg a day. 11. Nystatin 5 mL swish and swallow t.i.d. 12. Sucralfate 1 g p.o. t.i.d. ALLERGIES: CODEINE, PENICILLINS. CODE STATUS: Full. DIET: As tolerated. PENDING AT TIME OF DISCHARGE: Nothing. HOSPITAL COURSE: The patient was admitted to the Hospitalist Service through the emergency room with spasms in arms and legs. The patient has a history of metastatic breast cancer. Dr. Rashida العراقي, Neurology, saw the patient in consultation. Dr. Jami Schuler saw the patient, Oncology. Having failed recent standard chemotherapy, a diagnosis of seizure activity was made. The patient was put on Keppra 1500 b.i.d. for seizures, put on methocarbamol for muscle spasms, dexamethasone for brain swelling. The patient's situation stabilized to some extent. She received intrathecal chemotherapy during her hospital stay. Because she has a markedly weak left side, she was evaluated for rehab and found to have inadequate insurance for same. We have obtained 3 weeks of physical therapy. Her home is being situated such that she can be moved in there, equipment is being delivered. Her pertinent studies during her hospital stay are as follows: On admission, her white count was 7.6, hemoglobin 11.1, platelet count 199,000. On 01/18, her white count was 10.0, hemoglobin 9.5, platelet count 136,000. Chemistries on admission: Sodium 134, potassium 3.3, BUN 18, creatinine 0.55, blood sugar 116, magnesium was low for last studies, magnesium has increased to 1.5. Lytes are balanced. SARS was negative. In placing the intrathecal chemotherapy, fluid color was pink, hazy, white cells, no nucleated cells, glucose 74, protein 48. The lumbar puncture under fluoroscopy for chemotherapy was done on 01/21/2021. Followup will be with Dr. Aleman at the first time. Patient is awake and alert. She is still weak on the left side. Vital signs are stable. Cardiorespiratory exam is normal. She will be discharged tomorrow at 9 a.m., 01/25/2021. Job ID: [id number]
[2021-01-24] MEDS: Methocarbamol 500 MG TAB PO PRN (22:08)
[2021-01-25] MEDS: Dexamethasone 4 mg/ml Vial SLOW IVP SCH (05:54)
[2021-01-25] MEDS: Enoxaparin Sodium 40 MG/0.4 ML SYRINGE SC SCH (08:31)
[2021-01-25] MEDS: Gabapentin 100 MG CAP PO SCH (08:31)
[2021-01-25] MEDS: Propranolol HCl 20 MG TAB PO SCH (08:32)
[2021-01-25] MEDS: Folic Acid 1 MG TAB PO SCH (08:32)
[2021-01-25] MEDS: Potassium Chloride 20 MEQ TAB PO SCH (08:32)
[2021-01-25] MEDS: levETIRAcetam 500 MG TAB PO SCH (08:32)
[2021-01-25] MEDS: Magnesium Oxide 400 MG TAB PO SCH (08:32)
[2021-01-25 09:16] VITALS: BP 114/80; TEMP 98
--- NOTE | 2021-01-25 12:16 | PDOC.DS.DS ---
Provider Date of Admission: 01/15/21 11:17 Date of Discharge: 01/25/21 Admitting Provider: Cornel Cole MD Consultations: Neurology, Oncology Primary Care Physician: NO PCP PROVIDER Course Hospital Course: 55-year-old female who was admitted on January 15, 2021 with muscle spasm and fasciculation of bilateral lower extremity and hand, patient has history of metastatic breast cancer and she is followed by oncology, on admission patient had a CT brain which showed chronic ischemic changes without any acute process, chest x-ray showed infiltrate versus scar or pulmonary nodule, oncology and neurology was consulted while in hospital, patient had lumbar puncture on January 21, 2021, palliative care was also following while in hospital. Patient's routine laboratory parameters showed macrocytic anemia, she had abnormal electrolytes with a low potassium, low phosphorus and low magnesium which was replaced while in hospital, her COVID-19 test was negative, her urine culture was negative, patient is being discharged to home with home health. Resuscitation Status: 01/14/21 18:30 Resuscitation Status Routine Resuscitation Status: FULL: Full Resuscitation Discussed with: Patient Lab Results: 01/18/21 06:19 01/21/21 06:15 Microbiology - Entire Visit 01/14/21 12:50 Urine Straight Catheter Urine Culture - Final NO GROWTH AT 48 HOURS Vitals: Vital Signs (12 hours) Temp Pulse Resp BP Pulse Ox 01/25/21 08:00 98.0 F 81 12 114/80 99 Weight Admit Weight 111 lb 9.6 oz Weight 111 lb 9.6 oz Physical Exam: The patient was seen and examined on the day of discharge. General Appearance: NAD, awake alert Eye: PERRL, anicteric sclera ENT: normocephalic atraumatic, no oropharyngeal lesions Neck: supple, symmetric, no JVD, no thyromegaly Respiratory: no wheezes, no rales, no ronchi Cardiovascular: RRR, no murmur, no gallops, no rubs Gastrointestinal: soft, non-tender, non-distended, normal bowel sounds Extremities: no cyanosis, no clubbing, no edema Skin: normal turgor, no lesions Neurological: no focal deficits Musculoskeletal: normal tone, normal strength PSYCH: normal affect, normal behavior Problem (1) Hypomagnesemia Code(s): E83.42 - HYPOMAGNESEMIA Status: Acute (2) Hypophosphatemia Code(s): E83.39 - OTHER DISORDERS OF PHOSPHORUS METABOLISM Status: Acute (3) Seizure Code(s): R56.9 - UNSPECIFIED CONVULSIONS Status: Acute (4) Hypokalemia Code(s): E87.6 - HYPOKALEMIA Status: Acute (5) Brain metastases Code(s): C79.31 - SECONDARY MALIGNANT NEOPLASM OF BRAIN Status: Chronic (6) Breast cancer Status: Chronic Plan Prescriptions: Dexamethasone 4 mg PO TID #90 tablet levETIRAcetam [Keppra] 1,500 mg PO BID #60 tab Gabapentin [Neurontin] 100 mg PO TID #90 cap Methocarbamol [Robaxin] 500 mg PO QID PRN #120 tab PRN Reason: Muscle Spasm Home Medications: Medication Instructions Recorded Confirmed Type Anastrozole [Arimidex] 1 mg PO DAILY 04/16/20 01/15/21 History Memantine HCl 10 mg PO BID 12/01/20 01/15/21 History Prochlorperazine Maleate 10 mg PO Q6H PRN 12/01/20 01/15/21 History Pantoprazole [Protonix] 40 mg PO BID #60 tab 12/09/20 01/15/21 Rx Acetaminophen [Acetaminophen Extra 1,000 mg PO Q6HR PRN 01/02/21 01/15/21 History Strength] Sucralfate [Carafate] 1 gm PO TID-WM 01/02/21 01/15/21 History Capecitabine 3 tab PO SEEPHYS 01/15/21 01/15/21 History Fluconazole [Diflucan] 100 mg PO DAILY 01/15/21 01/15/21 History Folic Acid 1 mg PO DAILY 01/15/21 01/15/21 History Nystatin 5 ml SSW TID 01/15/21 01/15/21 History Propranolol [Inderal] 40 mg PO BID 01/15/21 01/15/21 History Dexamethasone 4 mg PO TID #90 tablet 01/24/21 Rx Gabapentin [Neurontin] 100 mg PO TID #90 cap 01/24/21 Rx Methocarbamol [Robaxin] 500 mg PO QID PRN #120 tab 01/24/21 Rx levETIRAcetam [Keppra] 1,500 mg PO BID #60 tab 02/25/21 Rx Allergies: codeine Allergy (Intermediate, Verified 01/15/21 07:57) Hives Penicillins Allergy (Intermediate, Verified 01/15/21 07:57) Hives Discharge Instructions:: FU with Dr Aleman Activity:: Activity as Tolerated Nourishment:: Regular Diet Therapies:: Physical Therapy Equipment/Supplies:: Not Applicable IV Therapy:: Not Applicable Referrals: PROVIDER,NO PCP [Primary Care Provider] - Disposition: HOME HEALTH Quality CORE MEASURES:: N/A
--- NOTE | 2021-01-28 06:30 | PQF ---
CLINICAL DOCUMENTATION CLARIFICATION FORM: Dear : Shalini Berger Date / Time: 01/28/21 06:29 Please exercise your independent, professional judgment in responding to the clarification form. Clinical indicators are provided on the bottom of this form for your review Can you please specify the etiology of patients muscle spasm and generalized weakness? Please check appropriate box(es): [x ] Seizure disorder [ ] Secondary brain cancer [ ] Other diagnosis, please specify [ ] Unable to determine Physician Signature: Date/Time: For continuity of documentation, please document condition throughout progress notes and discharge summary. Thank You. To be completed by CDI/Coding staff for physician review: Present Clinical Indicators - Signs / Symptoms / Labs Results and Location in Medical Record [x] Muscle spasms and fasciculations of bilateral lower extremities and hand Concern for effect form metastatic disease to central nervous system vs side effect of chemo agent HP 01/15 [x] Muscle spasms and fasciculations of bilateral lower extremities and hand secondary to seizure activity PN 01/16 [x] Seizure disorider DS 01/24 [x] CC: spasms of hands and legs HP 01/15 [x] The patient is somnolent Consult 01/15 [x] Confusion and disorientation Consult 01/15 [x] CT of brain: there are chronic ischemic changes...with evidence of old infarcts CT of brain 01/14 Present Risk Factors Results and Location in Medical Record [x] Hypomagnesemia DS 01/25 [x] Hypophosphatemia DS 01/25 [x] Hypokalemia DS 01/25 [x] Brain cancer DS 01/25 [x] Breast cancer DS 01/25 [x] HTN HP 01/14 Present Treatments Results and Location in Medical Record [x] Monitor and replacement of electrolytes DS 01/25 [x] Neuro check every 4 hrs Consult 01/15 [x] Seizure precautions Consult 01/15 [x] Neurology Consult Consult 01/15 [x] Decadron 4mg IV MAR 01/15 [x] Chemotheraphy LP 01/21 [x] Keppra 1000mg IV MAR 01/15 [x] Oncology Consult Consult 01/14 CDS/Vice President Compliance Signature:Maevejoni Chiquita Tavera Phone #: ext [phone] Date/Time:01/28/21 This is a permanent part of the Medical Record [facility]
--- NOTE | 2021-01-28 06:34 | PQF ---
CLINICAL DOCUMENTATION CLARIFICATION FORM: Dear : Shalini Berger Date / Time: 01/28/21 06:33 Please exercise your independent, professional judgment in responding to the clarification form. Clinical indicators are provided on the bottom of this form for your review Please check appropriate box(es): [ ] Cerebral edema / Vasogenic edema [ ] Compression of brain [ x ] Other diagnosis, please specify __brain metastasis with vasogenic edema [ ] Unable to determine Physician Signature: Date/Time: For continuity of documentation, please document condition throughout progress notes and discharge summary. Thank You. 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 CT of brain 01/14 Present Risk Factors Results and Location in Medical Record [x] Hypomagnesemia DS 01/25 [x] Hypophosphatemia DS 01/25 [x] Hypokalemia DS 01/25 [x] Brain cancer DS 01/25 [x] Breast cancer DS 01/25 [x] HTN HP 01/14 Present Treatments Results and Location in Medical Record [x] Monitor and replacement of electrolytes DS 01/25 [x] Neuro check every 4 hrs Consult 01/15 [x] Seizure precautions Consult 01/15 [x] Neurology Consult Consult 01/15 [x] Decadron 4mg IV MAR 01/15 CDS/Molecular Biologist Signature: Kimberly Tavera Phone #: [phone] Date/Time: 01/28/21 This is a permanent part of the Medical Record [facility]
--- NOTE | 2021-01-28 06:36 | PQF ---
CLINICAL DOCUMENTATION CLARIFICATION FORM: Dear : Shalini Berger Date / Time: 01/28/21 06:36 Please exercise your independent, professional judgment in responding to the clarification form. Clinical indicators are provided on the bottom of this form for your review Please check appropriate box(es): [ x ] Encephalopathy: Etiology: [ x ] Metabolic [ ] Toxic [ ] Unspecified [ x] Other (please specify) _seizure disorder and vasogenic edema [ ] Altered mental status only [ ] Other diagnosis, please specify [ ] Unable to determine Physician Signature: Date/Time: For continuity of documentation, please document condition throughout progress notes and discharge summary. Thank You. 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 CT of brain 01/14 [x] The patient is alert and oriented to person,place and time Consult 01/15 [x] Recent history of generalized tonic clonic seizure Consult 01/15 Present Risk Factors Results and Location in Medical Record [x] Hypomagnesemia DS 01/25 [x] Hypophosphatemia DS 01/25 [x] Hypokalemia DS 01/25 [x] Brain cancer DS 01/25 [x] Breast cancer DS 01/25 [x] HTN HP 01/14 [x] Moderate PCM HP 01/14 Present Treatments Results and Location in Medical Record [x] Monitor and replacement of electrolytes DS 01/25 [x] Neuro check every 4 hrs Consult 01/15 [x] Seizure precautions Consult 01/15 [x] Neurology Consult Consult 01/15 CDS/Proprietary Trader Signature: Kimberly Burdickheather Tavera Phone #: [phone] Date/Time: 01/28/21 This is a permanent part of the Medical Record [facility]
== END 2021-01-25 13:36 | disposition home health service (06) | DRG 100 ==
LOC: ERS 08:50 → ONC 16:22 → INTOOBSV 16:22 → OBSVTOIN 01-15 11:17
PROVIDERS: ADMIT Emergency Medicine; ATTEND Internal Medicine
PROC: 3E0R305 Introduction of Other Antineoplastic into Spinal Canal, Percutaneous Approach (ICD-10-PCS; principal; 2021-01-21)
DX: G40.909 Epilepsy, unspecified, not intractable, without status epilepticus (principal); G93.6 Cerebral edema; C79.31 Secondary malignant neoplasm of brain; Z20.822 Contact with and (suspected) exposure to COVID-19; Z51.5 Encounter for palliative care; E87.1 Hypo-osmolality and hyponatremia; E44.0 Moderate protein-calorie malnutrition; N17.9 Acute kidney failure, unspecified; G93.49 Other encephalopathy; C50.919 Malignant neoplasm of unspecified site of unspecified female breast; E87.6 Hypokalemia; I10 Essential (primary) hypertension; E83.42 Hypomagnesemia; K29.50 Unspecified chronic gastritis without bleeding; D64.9 Anemia, unspecified; E83.39 Other disorders of phosphorus metabolism; K20.90 Esophagitis, unspecified without bleeding; Z68.1 Body mass index [BMI] 19.9 or less, adult; Z88.5 Allergy status to narcotic agent; Z88.0 Allergy status to penicillin; Z79.899 Other long term (current) drug therapy; Z90.710 Acquired absence of both cervix and uterus
CPT/HCPCS: 0240U; 36415; 62270; 70450; 71045; 80048; 80053; 81003; 81015; 82945; 83735; 84100; 84157; 84484; 85025; 85610; 85730; 87086; 88112; 89051; 93005; 95712; 95819; 95957; G0378; J1100; J1642; J1650; J1953; J3475; J3480; J3490; J7050; U0002

== ENCOUNTER → 2021-01-28 | Day surgery (SDC) | payer SELFPAY ==
[2021-01-25 12:41] VITALS: BMI 20.4
[~2021-01-28] MED LIST changes: -SODIUM CHLORIDE 0.9% IVPB SCH; +STERILE WATER IV SCH; +TRASTUZUMAB ANNS IV SCH; -TRASTUZUMAB ANNS IVPB SCH
[2021-01-28 11:16] VITALS: BP 156/93; TEMP 99.2
--- NOTE | 2021-01-28 12:20 | RAD ---
Lumbar puncture with fluoroscopic guidance for intrathecal chemotherapy administration: 01/28/2021 HISTORY: 55-year-old female with metastatic breast cancer FINDINGS: Informed consent obtained prior to the procedure. The patient was placed on the fluoroscopic table in the oblique prone position and skin overlying the L4-5 level was anesthetized with 1% buffered lidocaine. With intermittent fluoroscopic guidance, a 22-gauge spinal needle is advanced into the thecal sac and removal of the stylet yields clear cerebrospinal fluid. Approximately 8 cc of clear CSF was removed and sent to the laboratory for assessment. Subsequently, provided chemotherapy solution was i njected over 4-5 minutes. Needle was removed. Patient tolerated the procedure well. Exposure data: 0.2 minutes of fluoroscopic time, 20.9 mcg/sq m IMPRESSION: Successful intrathecal administration of chemotherapy as above.
[2021-01-28 12:22] LABS: CSF Source CSF; Clarity Clear (Clear); Tube # 3
[2021-01-28 12:49] LABS: Color Of CSF Supernatant COLORLESS (Colorless); Tube # 1; Unspun CSF Color COLORLESS (Colorless)
[2021-01-28 13:03] LABS: CSF, Glucose 83 mg/dl (40-70); CSF, Protein 48 mg/dL (15-40)
== END ==
LOC: RAD 10:09
PROVIDERS: ATTEND Internal Medicine Hematology & Oncology
PROC: 009U3ZX Drainage of Spinal Canal, Percutaneous Approach, Diagnostic (ICD-10-PCS; principal; 2021-01-28)
DX: C50.919 Malignant neoplasm of unspecified site of unspecified female breast (principal); C79.9 Secondary malignant neoplasm of unspecified site; K21.9 Gastro-esophageal reflux disease without esophagitis; Z79.899 Other long term (current) drug therapy; Z88.0 Allergy status to penicillin; Z88.5 Allergy status to narcotic agent
CPT/HCPCS: 62270; 82945; 84157; 88112; 89051; Q5117

== ENCOUNTER 2021-02-04 09:36 | Day surgery (SDC) | payer SELFPAY ==
[2021-02-01 09:00] VITALS: BMI 20.1
[2021-02-04] MEDS ORDERED: TRASTUZUMAB ANNS FS SCH ×4 (10:00→10:15)
[2021-02-04] MEDS ORDERED: SODIUM CHLORIDE 0.9% FS SCH (10:00)
[2021-02-04] MEDS ORDERED: STERILE WATER FS SCH ×3 (10:15)
[2021-02-04 11:13] VITALS: BP 142/95; TEMP 97.6
[2021-02-04] MEDS ORDERED: Acetaminophen 500 MG TAB ONE (11:17)
[2021-02-04 12:32] LABS: CSF, Glucose 91 mg/dl (40-70); CSF, Protein 33 mg/dL (15-40)
[2021-02-04 13:43] LABS: CSF Source CSF; Clarity Clear (Clear); Tube # 4
== END 2021-02-04 12:10 | disposition home or self-care (01) ==
LOC: RAD 09:36
PROVIDERS: ATTEND Internal Medicine Hematology & Oncology
PROC: 009U3ZZ Drainage of Spinal Canal, Percutaneous Approach (ICD-10-PCS; principal; 2021-02-04)
DX: C50.919 Malignant neoplasm of unspecified site of unspecified female breast (principal); C79.31 Secondary malignant neoplasm of brain; I10 Essential (primary) hypertension; K21.9 Gastro-esophageal reflux disease without esophagitis; E44.0 Moderate protein-calorie malnutrition; Z68.20 Body mass index [BMI] 20.0-20.9, adult; Z79.899 Other long term (current) drug therapy; Z88.0 Allergy status to penicillin; Z88.5 Allergy status to narcotic agent
CPT/HCPCS: 62270; 82945; 84157; 88112; 89051; Q5117

== ENCOUNTER 2021-02-07 07:33 | Outpatient (CLI) | payer OTHER ==
[2021-02-07] MEDS ORDERED: Magnevist 469MG/ML 20 ML VIAL ONE (11:06)
== END 2021-02-07 07:34 | disposition home or self-care (01) ==
LOC: MRI 07:33
PROVIDERS: ATTEND Internal Medicine Hematology & Oncology
DX: C79.31 Secondary malignant neoplasm of brain (principal); C50.411 Malignant neoplasm of upper-outer quadrant of right female breast
CPT/HCPCS: 70553; A9579

== ENCOUNTER 2021-02-11 09:39 | Day surgery (SDC) | payer OTHER ==
[2021-02-07 14:48] VITALS: BMI 20.2
[2021-02-11] MEDS ORDERED: TRASTUZUMAB ANNS IV SCH (10:15)
[2021-02-11] MEDS ORDERED: STERILE WATER IV SCH (10:15)
[2021-02-11 12:06] VITALS: BP 113/81; TEMP 98.8
[2021-02-11 12:20] LABS: CSF Source CSF; Clarity Clear (Clear); Tube # 4
[2021-02-11 12:43] LABS: CSF, Glucose 76 mg/dl (40-70); CSF, Protein 49 mg/dL (15-40)
[2021-02-11 14:49] LABS: Color Of CSF Supernatant COLORLESS (Colorless); Unspun CSF Color COLORLESS (Colorless)
[2021-02-11 15:10] LABS: Tube # 1
== END 2021-02-11 11:50 | disposition home or self-care (01) ==
LOC: RAD 09:39
PROVIDERS: ATTEND Internal Medicine Hematology & Oncology
PROC: 00JU3ZZ Inspection of Spinal Canal, Percutaneous Approach (ICD-10-PCS; principal; 2021-02-11)
DX: C50.919 Malignant neoplasm of unspecified site of unspecified female breast (principal); I10 Essential (primary) hypertension; K21.9 Gastro-esophageal reflux disease without esophagitis; Z79.811 Long term (current) use of aromatase inhibitors; Z79.899 Other long term (current) drug therapy; Z88.0 Allergy status to penicillin; Z88.5 Allergy status to narcotic agent
CPT/HCPCS: 62270; 82945; 84157; 88112; 89051; Q5117

== ENCOUNTER 2021-02-18 09:41 | Day surgery (SDC) | payer OTHER, SELFPAY ==
[2021-02-15 13:09] VITALS: BMI 20.2
[2021-02-18 10:55] VITALS: BP 105/71; TEMP 99.2
[2021-02-18] MEDS ORDERED: TRASTUZUMAB ANNS IV SCH (12:00)
[2021-02-18] MEDS ORDERED: STERILE WATER IV SCH (12:00)
[2021-02-18 13:04] LABS: Color Of CSF Supernatant COLORLESS (Colorless); Tube # 2; Unspun CSF Color COLORLESS (Colorless)
[2021-02-18 13:21] LABS: CSF Source CSF; Clarity Clear (Clear); Tube # 4
[2021-02-18 13:22] LABS: CSF, Glucose 65 mg/dl (40-70); CSF, Protein 46 mg/dL (15-40)
== END 2021-02-18 12:40 | disposition home or self-care (01) ==
LOC: RAD 09:41
PROVIDERS: ATTEND Internal Medicine Hematology & Oncology
PROC: 009U3ZX Drainage of Spinal Canal, Percutaneous Approach, Diagnostic (ICD-10-PCS; principal; 2021-02-18)
DX: C50.911 Malignant neoplasm of unspecified site of right female breast (principal); C79.31 Secondary malignant neoplasm of brain; I10 Essential (primary) hypertension; K21.9 Gastro-esophageal reflux disease without esophagitis; Z17.0 Estrogen receptor positive status [ER+]; Z88.0 Allergy status to penicillin; Z88.5 Allergy status to narcotic agent
CPT/HCPCS: 62270; 82945; 84157; 88112; 89051; Q5117

== ENCOUNTER 2021-02-25 10:07 | Day surgery (SDC) | payer SELFPAY ==
[2021-02-21 11:38] VITALS: BMI 20.2
[2021-02-25] MEDS ORDERED: STERILE WATER IV SCH (10:15)
[2021-02-25] MEDS ORDERED: TRASTUZUMAB ANNS IV SCH (10:15)
[2021-02-25 11:13] VITALS: BP 109/77; TEMP 99.2
[2021-02-25 12:44] LABS: RBC Count-Automated (BF) 33 /cu.mm; WBC/Nucleated-Auto (BF) 3 uL
[2021-02-25 12:46] LABS: BF Color Colorless; Clarity Clear (Clear); Tube # 4
[2021-02-25 12:49] LABS: CSF, Glucose 66 mg/dl (40-70); CSF, Protein 38 mg/dL (15-40)
[2021-02-25 14:49] LABS: Color Of CSF Supernatant COLORLESS (Colorless); Tube # 1; Unspun CSF Color COLORLESS (Colorless)
== END 2021-02-25 12:20 | disposition home or self-care (01) ==
LOC: RAD 10:07
PROVIDERS: ATTEND Internal Medicine Hematology & Oncology
PROC: 009U3ZX Drainage of Spinal Canal, Percutaneous Approach, Diagnostic (ICD-10-PCS; principal; 2021-02-25)
DX: C50.911 Malignant neoplasm of unspecified site of right female breast (principal); C79.31 Secondary malignant neoplasm of brain; I10 Essential (primary) hypertension; K21.9 Gastro-esophageal reflux disease without esophagitis; Z17.0 Estrogen receptor positive status [ER+]; Z88.0 Allergy status to penicillin; Z88.5 Allergy status to narcotic agent
CPT/HCPCS: 62270; 82945; 84157; 88112; 89051; Q5117

== ENCOUNTER 2021-02-25 18:45 | Inpatient (IN) | payer SELFPAY ==
[2021-02-25] MEDS ORDERED: Diazepam 10 MG/2 ML SYRINGE ONE ×2 (19:30→20:17)
[2021-02-25 20:19] LABS: #Monocytes 0.4 thou/uL (0.11-0.59); #Neutrophils 2.5 thou/uL (1.40-6.50); %Basophils 0.1 % (0.0-1.0); %Eosinophils 0.6 % (0.0-10.0); %Lymphocytes 24.4 % (21.0-51.0); %Monocytes 10.9 % (0.0-10.0); Hemoglobin 11.9 g/dL (12.0-16.0); Mean Corpuscular HGB CONC 35.7 g/dL (32.0-36.0); Mean Corpuscular Hemoglobin 36.5 pg (27.0-31.0); Mean Platelet Volume 6.5 fL (7.4-10.4); Platelet Count 221 thou/uL (130-400); RBC Distribution Width 13.6 % (11.5-14.5); Red Blood Cell (RBC) Count 3.25 mill/uL (4.20-5.40)
[2021-02-25 20:40] LABS: ALT (SGPT) 46 U/L (8-55); AST (SGOT) 22 U/L (5-34); Albumin 2.9 g/dL (3.5-5.0); Alkaline Phosphatase 73 U/L (40-110); Anion Gap 12 mmol/L (10-20); BUN (Urea Nitrogen) 15 mg/dL (9.8-20.1); Bilirubin, Total 0.4 mg/dL (0.2-1.2); Calc. Creatinine Clearance 0 mL/min (70-130); Calcium 7.5 mg/dL (7.8-10.44); Carbon Dioxide 27 mmol/L (22-29); Chloride 107 mmol/L (98-107); Globulin 1.7 g/dL (2.4-3.5); Glucose 101 mg/dL (70-105); Protein, Total 4.6 g/dL (6.0-8.3); Sodium 143 mmol/L (136-145)
[2021-02-25 20:46] LABS: Potassium 2.8 mmol/L (3.5-5.1)
[2021-02-25] MEDS ORDERED: Magnesium 2 GM/50 ML BAG (IN WATER) ONE (21:12)
[2021-02-25] MEDS ORDERED: Potassium Chloride 20 MEQ TAB ONE (21:14)
[2021-02-25] MEDS ORDERED: Potassium Chloride 40 MEQ in Sodium Chloride 0.9% 250 ML 250 ML IVPB SCH (21:30)
[2021-02-25] MEDS ORDERED: levETIRAcetam in NS 100 ML ONE (21:38)
[2021-02-25] MEDS ORDERED: Dexamethasone 10 MG/ML VIAL ONE (21:45)
[2021-02-26] MEDS ORDERED: Electrolyte Replacement Protocol 1 EACH FS SCH (00:30)
[2021-02-26] MEDS ORDERED: Ondansetron PF 4 MG/2 ML Vial IVP PRN (00:30)
[2021-02-26] MEDS ORDERED: Acetaminophen 325 MG TAB PO PRN (00:30)
[2021-02-26] MEDS ORDERED: Ondansetron ODT 4 MG TAB SL PRN (00:30)
[2021-02-26] MEDS ORDERED: HYDROcodone/Acetaminophen 5/325 mg Tablet PO PRN (01:40)
[2021-02-26] MEDS ORDERED: Dexamethasone 10 MG/ML VIAL SLOW IVP SCH (01:45)
[2021-02-26] MEDS ORDERED: Lorazepam 2 MG/ML VIAL SLOW IVP SCH (01:45)
[2021-02-26 02:26] LABS: Anion Gap 10 mmol/L (10-20); BUN (Urea Nitrogen) 15 mg/dL (9.8-20.1); Calc. Creatinine Clearance 0 mL/min (70-130); Calcium 7.4 mg/dL (7.8-10.44); Carbon Dioxide 26 mmol/L (22-29); Chloride 109 mmol/L (98-107); Glucose 151 mg/dL (70-105); Potassium 4.4 mmol/L (3.5-5.1); Sodium 141 mmol/L (136-145)
[2021-02-26 02:45] VITALS: BMI 21.7
[2021-02-26] MEDS: Dexamethasone 4 mg/ml Vial SLOW IVP SCH ×4 (03:50→21:00)
[2021-02-26 04:52] LABS: SARS-CoV-2 PCR by NAA Not Detected (NotDetected)
[2021-02-26] MEDS ORDERED: Magnesium 2 GM/50 ML 2 GM in Premix Bag 1 BAG IVPB SCH (06:15)
[2021-02-26] MEDS: levETIRAcetam in NS 1,000 MG in Premix Bag 1 BAG IVPB SCH ×2 (09:33→20:58)
[2021-02-26] MEDS: Enoxaparin Sodium 40 MG/0.4 ML SYRINGE SC SCH (09:33)
[2021-02-26] MEDS ORDERED: Lacosamide 400 MG in Sodium Chloride 0.9% 50 ML IVPB SCH (11:45)
[2021-02-26] MEDS: Lacosamide 50 mg Tablet PO SCH (21:00)
[2021-02-27] MEDS: Dexamethasone 4 mg/ml Vial SLOW IVP SCH ×4 (03:52→20:39)
[2021-02-27] MEDS ORDERED: Lorazepam 2 MG/ML VIAL ONE (08:24)
[2021-02-27] MEDS: Lacosamide 50 mg Tablet PO SCH ×2 (08:28→20:40)
[2021-02-27] MEDS: Enoxaparin Sodium 40 MG/0.4 ML SYRINGE SC SCH (08:28)
[2021-02-27] MEDS: levETIRAcetam in NS 1,000 MG in Premix Bag 1 BAG IVPB SCH ×2 (08:28→20:41)
[2021-02-27] MEDS ORDERED: Lorazepam 2 MG/ML VIAL SLOW IVP SCH (08:30)
[2021-02-27] MEDS: Lorazepam 2 MG/ML VIAL SLOW IVP PRN (19:31)
[2021-02-27] MEDS: Gabapentin 100 MG CAP PO SCH (20:39)
[2021-02-28] MEDS: Dexamethasone 4 mg/ml Vial SLOW IVP SCH ×3 (04:04→14:56)
[2021-02-28] MEDS: Gabapentin 100 MG CAP PO SCH ×2 (08:57→14:56)
[2021-02-28] MEDS: Enoxaparin Sodium 40 MG/0.4 ML SYRINGE SC SCH (08:57)
[2021-02-28] MEDS: levETIRAcetam in NS 1,000 MG in Premix Bag 1 BAG IVPB SCH (08:58)
[2021-02-28] MEDS: Lacosamide 50 mg Tablet PO SCH (09:33)
[2021-02-28] MEDS: Lorazepam 2 MG/ML VIAL SLOW IVP PRN (09:35)
[2021-02-28 15:54] VITALS: BP 126/84; TEMP 97.9
[2021-02-28] MEDS ORDERED: Lacosamide 50 mg Tablet PO SCH (21:00)
== END 2021-02-28 17:37 | disposition hospice, home (50) | DRG 100 ==
LOC: ERS 18:45 → 2SE 22:25 → OBSVTOIN 22:25
PROVIDERS: ADMIT Student in an Organized Health Care Education/Training Program; ATTEND Internal Medicine
DX: G40.109 Localization-related (focal) (partial) symptomatic epilepsy and epileptic syndromes with simple partial seizures, not intractable, without status epilepticus (principal); G93.6 Cerebral edema; I69.354 Hemiplegia and hemiparesis following cerebral infarction affecting left non-dominant side; C79.31 Secondary malignant neoplasm of brain; Z20.822 Contact with and (suspected) exposure to COVID-19; I10 Essential (primary) hypertension; G25.70 Drug induced movement disorder, unspecified; T45.1X5A Adverse effect of antineoplastic and immunosuppressive drugs, initial encounter; E87.6 Hypokalemia; E83.42 Hypomagnesemia; C50.919 Malignant neoplasm of unspecified site of unspecified female breast; K29.70 Gastritis, unspecified, without bleeding; K20.90 Esophagitis, unspecified without bleeding; Z88.5 Allergy status to narcotic agent; Z88.0 Allergy status to penicillin; Z79.899 Other long term (current) drug therapy; Z90.710 Acquired absence of both cervix and uterus
CPT/HCPCS: 36415; 70450; 80048; 80053; 83735; 85025; 87635; 93005; 95712; 95819; 95957; 96365; 96367; 96372; 96375; 96376; C9254; G0378; J1100; J1650; J1953; J2060; J3360; J3475; J3480; J7050; U0003; U0005